=== PATIENT | female | born 1995 | race Caucasian/White ===

== ENCOUNTER → 2020-04-03 15:13 | Outpatient (CLI) | payer BC, SELFPAY ==
--- NOTE | ~2020-04-03 | XR_ITS ---
EXAMINATION: XR cervical spine 4-5V DATE: 04/03/2020 15:51 INDICATION: Neck pain. TECHNIQUE: 4 views of cervical spine were obtained. COMPARISON: None. FINDINGS: There is kyphosis of cervical spine. There is 6 degrees levocurvature of cervicothoracic sp ine. There is 2 mm anterolisthesis of C7 on T1. Vertebral body heights and intervertebral disc height s are normal. There is moderate to severe facet joint osteoarthritis at C7-T1. The C7 transverse proc esses are elongated. No central canal stenosis or prevertebral soft tissue swelling. IMPRESSION: 1. Mild cervical spondylosis. Reviewed, dictated and finalized at location A. IO ENGINEER
== END ==
PROVIDERS: PCP Nurse Practitioner Family; Visit Provider Nurse Practitioner Family
DX: M47.892 Other spondylosis, cervical region (principal)
CPT/HCPCS: 72050

== ENCOUNTER → 2020-04-12 08:07 | Outpatient (CLI) | payer BC, SELFPAY ==
--- NOTE | ~2020-04-12 | MR_ITS ---
EXAMINATION: MR cervical spine wo con EXAM DATE: 04/12/2020 08:55 INDICATION: M54.2 - Cervicalgia neck pain/locking/swelling, right arm tingling upper body . TECHNIQUE: Multi-sequential, multiplanar MR images of the cervical spine were obtained without contra st. Axial T2, axial T2 MERGE sequence. Sagittal T1, T2, T2 fat saturation images also obtained. Th ere is no prior study for comparison. FINDINGS: The vertebral bodies are aligned in the AP dimension. Vertebral body and disc heights are well-maintained. The spinal cord signal intensity and intrinsic morphology is normal. Cervicomedulla ry junction is normal in appearance. There are no suspicious marrow signal abnormalities. Paraspina l soft tissue is unremarkable. Level by level evaluation: C2-C3: Disc does not extend beyond the endplate margin. Uncovertebral joint arthropathy: None. Facet joint arthropathy: None. Neural foraminal stenosis: No stenosis. Central canal stenosis: No stenosis. C3-C4: Disc does not extend beyond the endplate margin. Uncovertebral joint arthropathy: None. Facet joint arthropathy: None. Neural foraminal stenosis: No stenosis. Central canal stenosis: No stenosis. C4-C5: Disc does not extend beyond the endplate margin. Uncovertebral joint arthropathy: None. Facet joint arthropathy: None. Neural foraminal stenosis: No stenosis. Central canal stenosis: No stenosis. C5-C6: Disc does not extend beyond the endplate margin. Uncovertebral joint arthropathy: None. Facet joint arthropathy: None. Neural foraminal stenosis: No stenosis. Central canal stenosis: No stenosis. C6-C7: Disc does not extend beyond the endplate margin. Uncovertebral joint arthropathy: None. Facet joint arthropathy: None. Neural foraminal stenosis: No stenosis. Central canal stenosis: No stenosis. C7-T1: Disc does not extend beyond the endplate margin. Uncovertebral joint arthropathy: None. Facet joint arthropathy: None. Neural foraminal stenosis: No stenosis. Central canal stenosis: No stenosis. IMPRESSION: Normal MR cervical spine. Reviewed, dictated and finalized at location A. [employer] IMPRESSION: Normal MR cervical spine.
== END ==
PROVIDERS: PCP Nurse Practitioner Family; Visit Provider Nurse Practitioner Family
DX: M54.2 Cervicalgia (principal)
CPT/HCPCS: 72141

== ENCOUNTER 2020-05-13 10:10 | Outpatient (CLI) | payer BC, SELFPAY ==
--- NOTE | 2020-05-16 16:52 | WPDHOLTEREM ---
Holter/Event Monitor Holter/Event Monitor Date of procedure: 05/16/20 Procedure Type: 48 hour Holter monitor Diagnosis: cardiac arrhythmia Indications: cardiac arrhythmia Image/Tracing Quality: good Findin hours and 59 minutes were recorded and analyzed. Underlying normal sinus rhythm with heart rate variability between 49 and 185 beats per minute with an average heart rate of 98 beats per minute. The AV and IV conduction systems were within normal limits. The longest RR interval was 1.4 seconds. No complex arrhythmias seen. There is 1 PVC and low-frequency supraventricular ectopy totaling 164 beats. This did consist of 5 PACs and 159 late beats which generally occur in the over night or power generation engineer hours. No diary was submitted and no patient events noted. Conclusion: 1. Underlying normal sinus rhythm / sinus tachycardia with elevated average heart rate of 98 beats per minute. 2. No complex arrhythmia is noted or significant heart block or pauses. 3. One PVC and low-frequency supraventricular ectopy (all in single beat form as detailed above). 4. No symptom events noted
== END 2020-05-13 10:11 | disposition home or self-care (01) ==
PROVIDERS: PCP Nurse Practitioner Family; Visit Provider Nurse Practitioner Family
DX: I49.8 Other specified cardiac arrhythmias (principal)
CPT/HCPCS: 93225; 93226

== ENCOUNTER 2020-06-17 08:04 | Outpatient (CLI) | payer BC, SELFPAY ==
--- NOTE | 2020-06-17 08:48 | ECHO_ITS ---
Patient Info Name: Marti Donnelly Age: 24 years : 1995 Gender: Female Ht: 65 in Wt: 140 lbs BSA: 1.71 m2 HR: 80 bpm BP: 121 / 76 mmHg Heart Rhythm: Sinus Rhythm Technical Quality: Good Exam Date: 06/17/2020 9:21 AM Exam Location: [facility] Patient Status: Outpatient Admit Date: 06/17/2020 Staff Ordering Physician: Yuliana Fraser Is Consultant: Mike Lloyd RDCS Attending Provider: Yuliana Fraser Referring Physician: Evelio OCAMPO; Exam Type: CA echo doppler color flow Study Info Indications I49.9 - Cardiac arrhythmia, unspecified Complete two-dimensional, color flow and Doppler transthoracic echocardiogram is performed. Strain analysis performed. History/Risk Factors Cardiac arrhythmia. Summary 1. Complete two-dimensional, color flow and Doppler transthoracic echocardiogram is performed. 2. Left ventricular chamber dimension is normal. 3. Left ventricular systolic function is normal, estimated at 55-60%. 4. The left ventricular diastolic function is normal. 5. E/e' 5 is not elevated. 6. Global longitudinal strain is mildly abnormal at -16.8%. 7. No pulmonary hypertension, estimated pulmonary arterial systolic pressure is 26 mmHg. Left Ventricle E/e' 5 is not elevated. Global longitudinal strain is mildly abnormal at -16.8%. Left ventricular chamber dimension is normal. Left ventricular systolic function is normal, estimated at 55-60%. The left ventricular diastolic function is normal. Right Ventricle Right ventricular chamber dimension is normal. Right ventricular systolic function is normal. Left Atria Left atrial chamber dimension is normal. Right Atria Right atrial chamber dimension is normal. Aortic Valve The aortic valve is trileaflet. There is no aortic valve stenosis. There is no aortic valve regurgitation. Pulmonic Valve There is no pulmonic regurgitation. Mitral Valve There is no mitral valve stenosis. There is no mitral valve regurgitation. Tricuspid Valve There is no tricuspid valve regurgitation. No pulmonary hypertension, estimated pulmonary arterial systolic pressure is 26 mmHg. Pericardium/Pleural There is no pericardial effusion. Inferior Vena Cava Normal inferior vena cava with >50% collapse upon inspiration consistent with normal right atrial pressure, 5 mmHg. Aorta The aortic root size at the sinus of Valsalva is normal. Left Ventricular Outflow Tract Name Value Normal LVOT 2D LVOT Diameter 1.7 cm LVOT Doppler LVOT Peak Gradient 8 mmHg LVOT Mean Gradient 4 mmHg LVOT VTI 26 cm LVOT VTI/AV VTI Ratio 0.8 LVOT Stroke Volume 60 ml LVOT CO 5.0 l/min LVOT CI 2.9 l/min/m2 Mitral Valve Name Value Normal
== END 2020-06-17 08:05 | disposition home or self-care (01) ==
PROVIDERS: PCP Nurse Practitioner Family; Visit Provider Nurse Practitioner Family
DX: I49.8 Other specified cardiac arrhythmias (principal)
CPT/HCPCS: 93306

== ENCOUNTER 2021-08-06 14:40 | Outpatient (CLI) | payer BC, SELFPAY ==
[2021-08-06 15:02] LABS: Basophils Percent Auto 0.4 % (0.2-1.2); Eosinophils Percent Auto 0.9 % (0-4.4); Hematocrit 41.8 % (37.0-47.0); Hemoglobin 14.3 g/dL (12.0-15.0); Immature Granulocyte Absolute 0.02 K/mm3 (0.00-0.031); Immature Granulocyte Percent A 0.4 % (0-0.5); Lymphocytes Percent Auto 32.5 % (18.3-44.2); Mean Corpuscular HGB Conc 34.2 g/dl (32-36); Mean Corpuscular Hemoglobin 32.4 pg (26-34); Mean Corpuscular Volume 94.8 fl (80-100); Mean Platelet Volume 9.9 fl (7.4-10.4); Monocytes Absolute Auto 0.4 K/mm3 (0.1-0.6); Monocytes Percent Auto 7.8 % (2.6-8.5); Neutrophils Absolute Auto 2.7 K/mm3 (1.3-6.7); Platelet Count Result 236 k/mm3 (150-375); Red Blood Count 4.41 M/mm3 (4.2-5.4); Red Cell Distribution Width 11.6 % (11.5-14.5); White Blood Count 4.6 K/mm3 (4.5-10.0)
[2021-08-06 15:15] LABS: Alanine Aminotransferase 11 U/L (4-35); Albumin Level 4.7 g/dL (3.5-5.1); Alkaline Phosphatase 78 U/L (38-126); Amylase 82 U/L (30-110); Anion Gap 6 mmol/L (8-16); Aspartate Amino Transferase 24 U/L (14-36); Bilirubin,Total 0.4 mg/dL (0.2-1.3); Blood Urea Nitrogen 4 mg/dL (7-17); CRP < 0.5 mg/dL (<1.0); Calcium 9.2 mg/dL (8.4-10.2); Carbon Dioxide 28 mmol/L (22-30); Chloride 105 mmol/L (98-107); Estimated Glomerular Filt Rate > 60; Glucose 102 mg/dL (65-110); Lipase 85 U/L (23-300); Potassium 4.1 mmol/L (3.4-5.0); Sodium 139 mmol/L (137-145)
[2021-08-06 16:55] LABS: Erythrocyte Sedimentation Rate 12 mm/hr (0-20)
== END 2021-08-06 14:41 | disposition home or self-care (01) ==
LOC: ANHLAB 14:43
PROVIDERS: PCP Family Medicine; Visit Provider Nurse Practitioner Family
DX: R10.9 Unspecified abdominal pain (principal)
CPT/HCPCS: 36415; 80053; 82150; 83690; 84443; 85025; 85652; 86140

== ENCOUNTER 2021-09-15 09:13 | Outpatient (CLI) | payer BC, SELFPAY ==
[2021-09-15 10:10] LABS: Basophils Percent Auto 0.5 % (0.2-1.2); Eosinophils Percent Auto 0.9 % (0-4.4); Hematocrit 40.9 % (37.0-47.0); Hemoglobin 13.6 g/dL (12.0-15.0); Immature Granulocyte Absolute 0.01 K/mm3 (0.00-0.031); Immature Granulocyte Percent A 0.2 % (0-0.5); Lymphocytes Absolute Auto 1.43 K/mm3 (0.9-3.2); Mean Corpuscular HGB Conc 33.3 g/dl (32-36); Mean Corpuscular Hemoglobin 31.4 pg (26-34); Mean Corpuscular Volume 94.5 fl (80-100); Mean Platelet Volume 10.8 fl (7.4-10.4); Monocytes Absolute Auto 0.5 K/mm3 (0.1-0.6); Monocytes Percent Auto 11.1 % (2.6-8.5); Neutrophils Absolute Auto 2.4 K/mm3 (1.3-6.7); Neutrophils Percent Auto 54.3 % (45.5-73.1); Platelet Count Result 244 k/mm3 (150-375); Red Blood Count 4.33 M/mm3 (4.2-5.4); Red Cell Distribution Width 11.6 % (11.5-14.5); White Blood Count 4.3 K/mm3 (4.5-10.0)
[2021-09-15 10:18] LABS: Rheumatoid Factor < 8.6 IU/ML (<12)
[2021-09-15 10:20] LABS: Anion Gap 7 mmol/L (8-16); Blood Urea Nitrogen 5 mg/dL (7-17); Carbon Dioxide 27 mmol/L (22-30); Chloride 105 mmol/L (98-107); Estimated Glomerular Filt Rate > 60; Glucose 84 mg/dL (65-110); Potassium 3.9 mmol/L (3.4-5.0); Sodium 139 mmol/L (137-145)
[2021-09-15 10:59] LABS: Erythrocyte Sedimentation Rate 11 mm/hr (0-20)
[2021-09-15 11:40] LABS: CRP < 0.5 mg/dL (<1.0)
== END 2021-09-15 09:14 | disposition home or self-care (01) ==
LOC: ANHLAB 09:16
PROVIDERS: PCP Family Medicine; Visit Provider Nurse Practitioner Family
DX: R39.9 Unspecified symptoms and signs involving the genitourinary system (principal); R52 Pain, unspecified
CPT/HCPCS: 36415; 80048; 85025; 85652; 86038; 86039; 86140; 86430

== ENCOUNTER 2021-11-12 10:53 | Outpatient (CLI) | payer BC, SELFPAY ==
--- NOTE | ~2021-11-12 | XR_ITS ---
EXAMINATION: HAND-SHARMILA ARTHRITIS 3+VIEWS DATE: 11/12/2021 11:17 INDICATION: Unspecified osteoarthritis TECHNIQUE: Posteroanterior, lateral, and oblique views of the left and of the right hands as well as a ballcatchers view of both hands were obtained. COMPARISON: None. FINDINGS: Alignment is normal at both hands. No fracture. Joint spaces are preserved in both hands with no eros ions or osteophytosis. Soft tissues are unremarkable. IMPRESSION: 1. Negative bilateral hand radiographs with normal joint spaces. Reviewed, dictated and finalized at location A.
[2021-11-12 11:51] LABS: Complement C3 130 mg/dL (88-165)
[2021-11-15 20:38] LABS: Anti Cardio Antibody IgM <2.0 MPL-U/mL (<20.0); Anti Cardiolipin Antibody IgA <2.0 APL-U/mL (<20.0); Anti Cardiolipin Antibody IgG <2.0 GPL-U/mL (<20.0)
[2021-11-16 19:31] LABS: SM Antibody <1.0; SM/RNP Antibody <1.0; SS-A <1.0; SS-B <1.0
[2021-11-17 22:10] LABS: Anti Cyclic Citrullinated Pept <16 Units (<20)
[2021-11-18 03:03] LABS: Lupus dRVVT 1:1 Mix Interpreta Not Indicated; Lupus dRVVT Screen 41 sec (<=45); PTT-LA Screen 36 sec (<=40)
== END 2021-11-12 10:54 | disposition home or self-care (01) ==
LOC: ANHIMG 10:55
PROVIDERS: PCP Family Medicine; Visit Provider Internal Medicine
DX: M19.90 Unspecified osteoarthritis, unspecified site (principal); R76.8 Other specified abnormal immunological findings in serum
CPT/HCPCS: 36415; 73130; 85613; 85730; 86146; 86147; 86160; 86200; 86225; 86235

== ENCOUNTER 2022-01-27 13:46 | Outpatient (CLI) | payer BC, SELFPAY ==
--- NOTE | ~2022-01-27 | MR_ITS ---
EXAMINATION: MR cervical spine wo con DATE: 01/27/2022 14:37 INDICATION: Neck pain. TECHNIQUE: Magnetic resonance imaging (MRI) of the cervical spine was performed without intravenous c ontrast. Sequences included sagittal T2-weighted FSE, sagittal T2-weighted FS FSE, sagittal T1-weight ed FSE, axial MERGE, and axial T2-weighted FSE. COMPARISON: Cervical spine MRI 04/12/2020 FINDINGS: There is kyphosis of cervical spine. There is 4 degrees levocurvature of cervicothoracic sp ine. Vertebral body heights and intervertebral disc heights are normal. The spinal cord signal intens ity is normal. The following disc levels are specifically discussed: C2-C3 through C7-T1: The disc does not extend beyond the endplate margin. There is no uncovertebral j oint osteoarthritis. There is no facet joint osteoarthritis. There is no neural foraminal stenosis. T here is no central canal stenosis. IMPRESSION: 1. Kyphosis of cervical spine. Reviewed, dictated and finalized at location A.
== END 2022-01-27 13:47 | disposition home or self-care (01) ==
LOC: ANHIMG 13:51
PROVIDERS: PCP Family Medicine
DX: M54.2 Cervicalgia (principal)
CPT/HCPCS: 72141

== ENCOUNTER 2022-03-25 15:06 | Emergency (ER) | payer BC, SELFPAY ==
--- NOTE | ~2022-03-25 | CT_ITS ---
EXAMINATION: CT brain wo con DATE: 03/25/2022 19:14 INDICATION: Right-sided headaches, dizziness for 3 weeks TECHNIQUE: Computed tomography (CT) of the head was performed without intravenous contrast. The mA wa s adjusted according to patient size. Iterative reconstruction technique was employed. Exam dose: 60 5.33 mGy-cm total exam DLP. COMPARISON: None FINDINGS: No intracranial mass lesion or hemorrhage or cerebrovascular accident. No midline shift or mass effect. Normal [place]-white matter differentiation. Normal ventricular size. No subdural or epidur al hematoma. The mastoid air cells and included paranasal sinuses are normally developed and aerated. No fracture or bone destruction of the cranial vault. IMPRESSION: Negative examination Reviewed, dictated and finalized at Location A. Reviewed, dictated and finalized at location A. IMPRESSION: Negative examination
[2022-03-25 15:19] VITALS: BP 121/78; PULSE 102; RESP 18; TEMP 36.7; O2SAT 100
[2022-03-25 19:27] LABS: Add Urine Microscopic? YES; Appearance Urine Cloudy (Clear); Bacteria Urine Trace /hpf; Bilirubin Urine Negative (Negative); Blood Urine Negative (Negative); Color Urine Yellow (Yellow); Glucose Urine UA Negative (Negative); Ketones Urine Negative (Negative); Leukocyte Esterase Ur Trace LEU/UL (Negative); Mucus Urine Rare /lpf; Nitrate Urine Negative (Negative); Protein Urine Negative (Negative); RBC Urine 0-2 /hpf (0-2); Specific Grav Ur 1.006 (1.001-1.035); Squamous Epithelial Cell Urine Few /hpf (Few); Urobilinogen Urine Negative mg/dL (<2.0)
--- NOTE | 2022-03-25 19:31 | ED.GENADULT ---
HPI - General Adult General Chief complaint: Dizziness Stated complaint: dizzy, weak Time Seen by Provider: 03/25/22 18:37 Source: RN notes reviewed History of Present Illness HPI narrative: Patient presents emergency department from home for headaches. Patient states for the past 3 weeks she has been having intermittent head pain over the right side of her head she states that the pain described as sharp and stabbing feels like needles are being stuck into her scalp she states that nothing seems to make the pain better or worse the pain goes into her right ear and she states she has been having aching in her right ear she denies any fevers or chills she does note that has been having some chronic throat pain and that she has been evaluated with 2 scopes of her throat by ENT with negative work-ups before in the past she denies any vision changes numbness or tingling to the extremities states she does have some intermittent nausea with the pain Related Data Home Medications Medication Instructions Recorded Confirmed norethindrone 1 mg-ethinyl 1 tablet PO DAILY 07/02/20 02/24/22 estradiol 10 mcg (24)-iron 10 mcg(2) tablet (Lo Loestrin Fe) cyclobenzaprine 10 mg tablet 10 mg PO ONCE 01/01/22 02/24/22 meloxicam 7.5 mg tablet 7.5 mg PO DAILY 02/08/22 02/24/22 Allergies Allergy/AdvReac Type Severity Reaction Status Date / Time Sulfa (Sulfonamide Allergy Mild RASH Verified 03/10/22 09:57 Antibiotics) fluoxetine [From Prozac] AdvReac Intermediate Unknown Verified 03/10/22 09:57 Review of Systems Review of Systems: Gen.: Denies fevers or chills Eyes: Denies eye pain or visual change ENT: Reports right ear pain and sore throat Respiratory: Denies shortness of breath or cough CV: Denies chest pain or palpitations GI: Denies abdominal pain vomiting or diarrhea. Reports intermittent nausea denies burning, urgency, frequency or hematuria Musculoskeletal: Denies back pain or muscle pain Neuro: See HPI Skin: Denies rash Except as documented, all other systems reviewed and negative [facility] Past Medical History Medical History MARION positive BMI 22.0-22.9, adult BMI 23.0-23.9, adult BMI 24.0-24.9, adult BMI 25.0-25.9,adult Depression Lordosis of cervicothoracic region Neck pain Tobacco abuse Surgical History Surgical History [place] teeth extracted Family History Family History Father Tongue cancer COVID-19 Mother Cardiac abnormality Grandparent COPD (chronic obstructive pulmonary disease) Sibling COVID-19 Social History Social History Smoking packs per day: 0.25 Smoking cigarettes per day: 5.0 Years smoked: 9 Smoking pack-years: 2.25 Smoking status: Current every day smoker Tobacco type: cigarettes Second hand tobacco smoke exposure: Yes Alcohol intake: current Substance use: current Substance use type: marijuana Additional occupation/education comments: [employer] Gender identity (if verbalized by the patient): Female Exam Narrative: APPEARANCE: No acute distress, nontoxic, resting in bed EYES: EOMI HEENT: Normocephalic, atraumatic, TMs clear bilaterally nares patent oral mucosa moist erythema exudate posterior pharynx RESPIRATORY: No respiratory distress Clear to auscultation bilaterally with no rhonchi wheezing or rales. CARDIOVASCULAR: Regular rate and rhythm without murmurs rubs or gallops. ABDOMINAL: Soft, nontender, nondistended, no rebound or guarding MUSCULOSKELETAl: Moves all extremities. No clubbing, cyanosis or edema. NEURO: Awake and alert x 4. Following commands, speech normal, no focal deficits SKIN:: Warm, dry. No rashes lesions or abrasions PSYCHIATRIC: Normal affect/mood, Course Course Emergency Course: My initi
[2022-03-25 20:03] VITALS: BP 110/81; PULSE 86; RESP 18; O2SAT 100
[2022-03-25 20:30] LABS: Basophils Percent Auto 0.4 % (0.2-1.2); Eosinophils Percent Auto 0.6 % (0-4.4); Hemoglobin 13.5 g/dL (12.0-15.0); Immature Granulocyte Absolute 0.01 K/mm3 (0.00-0.031); Immature Granulocyte Percent A 0.2 % (0-0.5); Lymphocytes Absolute Auto 1.57 K/mm3 (0.9-3.2); Lymphocytes Percent Auto 31.3 % (18.3-44.2); Mean Corpuscular HGB Conc 34.6 g/dl (32-36); Mean Corpuscular Hemoglobin 31.9 pg (26-34); Mean Corpuscular Volume 92.2 fl (80-100); Monocytes Absolute Auto 0.5 K/mm3 (0.1-0.6); Monocytes Percent Auto 9.4 % (2.6-8.5); Neutrophils Absolute Auto 2.9 K/mm3 (1.3-6.7); Neutrophils Percent Auto 58.1 % (45.5-73.1); Platelet Count Result 261 k/mm3 (150-375); Red Blood Count 4.23 M/mm3 (4.2-5.4); Red Cell Distribution Width 11.9 % (11.5-14.5)
[2022-03-25] MEDS: NITROFURANTOIN MONOHYD MACROCR 100 MG CAP PO (21:14)
[2022-03-25 21:20] VITALS: BP 126/81; PULSE 71; RESP 14; O2SAT 99
[2022-03-25 21:22] LABS: Alanine Aminotransferase 12 U/L (6-35); Albumin Level 4.3 g/dL (3.5-5.1); Alkaline Phosphatase 68 U/L (38-126); Anion Gap 14 mmol/L (8-16); Aspartate Amino Transferase 20 U/L (14-36); Bilirubin,Total 0.5 mg/dL (0.2-1.3); Blood Urea Nitrogen 5 mg/dL (7-17); Carbon Dioxide 27 mmol/L (22-30); Chloride 100 mmol/L (98-107); Estimated CRCL calculation 88 ml/min; Estimated Glomerular Filt Rate > 60; Glucose 124 mg/dL (65-110); Potassium 3.5 mmol/L (3.4-5.0); Sodium 141 mmol/L (137-145)
== END 2022-03-25 21:22 | disposition home or self-care (01) ==
PROVIDERS: Emergency Provider Emergency Medicine; PCP Family Medicine
DX: R51.9 Headache, unspecified (principal); N39.0 Urinary tract infection, site not specified; F17.210 Nicotine dependence, cigarettes, uncomplicated
CPT/HCPCS: 36415; 70450; 80053; 81001; 81025; 85025; 99284; A9270

== ENCOUNTER 2022-03-28 10:49 | Outpatient (CLI) | payer BC, SELFPAY ==
--- NOTE | ~2022-03-28 | MR_ITS ---
EXAMINATION: MR brain/brain stem wo/w con DATE: 03/28/2022 11:34 INDICATION: persistent daily OBREGON. No relief with migraine meds TECHNIQUE: Magnetic resonance imaging (MRI) of the brain and brainstem was performed without and with 13 mL MultiHance intravenous contrast. Sequences included sagittal and axial T1-weighted SE, axial d iffusion-weighted FS EPI ASSET, axial T2*-weighted GRE, axial T2-weighted FLAIR Propeller, and axial T2-weighted Propeller. Postcontrast axial and coronal T1-weighted SE was obtained. Apparent diffusion coefficient (ADC) maps were created. COMPARISON: CT brain 03/25/2022. FINDINGS: No abnormal restricted diffusion to suggest acute ischemic infarct. No MRI evidence of hemorrhage or extra-axial collection. No suspicious foci of susceptibility to suggest prior intraparenchymal hemorr nile. No white matter change. No evidence of advanced or lobar predominant parenchymal volume loss. B asilar cisterns are patent. Vascular flow voids are preserved. No significant orbital, mastoid air ce ll, or paranasal finding. No abnormal enhancement. IMPRESSION: Normal MR brain findings. Reviewed, dictated and finalized at location K. IMPRESSION: Normal MR brain findings.
== END 2022-03-28 10:50 | disposition home or self-care (01) ==
LOC: ANHIMG 10:52
PROVIDERS: PCP Family Medicine; Visit Provider Physician Assistant Medical
DX: R51.9 Headache, unspecified (principal)
CPT/HCPCS: 70553; A9577

== ENCOUNTER 2022-03-31 12:18 | Emergency (ER) | payer BC, SELFPAY ==
--- NOTE | ~2022-03-31 | US_ITS ---
EXAMINATION: US venous doppler LE RT DATE: 03/31/2022 13:54 INDICATION: Right lower limb pain and swelling. TECHNIQUE: Grayscale ultrasound images without and with compression and Doppler ultrasound images of the right lower extremity veins were obtained. COMPARISON: None. FINDINGS: The visualized portions of right common femoral vein, profunda (deep) femoral vein, femoral vein, pop liteal vein, peroneal veins, posterior tibial veins, and greater saphenous vein outflow are patent. IMPRESSION: 1. No deep venous thrombosis. Reviewed, dictated and finalized at location A.
--- NOTE | 2022-03-31 12:19 | ECG_ITS ---
Measurements Intervals [place] Rate: 116 P: 68 MT: 113 QRS: 64 QRSD: 79 T: 50 QT: 293 QTc: 407 Interpretive Statements SINUS TACHYCARDIA WITH SHORT MT INTERVAL ABNORMAL ECG NO PREVIOUS ECG AVAILABLE FOR COMPARISON Electronically Signed On 03-31-2022 12:55:26 CDT by Tee Cortez D.O.
[2022-03-31 12:32] VITALS: BP 124/85; PULSE 122; RESP 14; TEMP 36.5; O2SAT 98
[2022-03-31 12:35] LABS: Basophils Percent Auto 0.6 % (0.2-1.2); Eosinophils Percent Auto 0.6 % (0-4.4); Hematocrit 43.4 % (37.0-47.0); Hemoglobin 14.9 g/dL (12.0-15.0); Lymphocytes Percent Auto 35.9 % (18.3-44.2); Mean Corpuscular HGB Conc 34.3 g/dl (32-36); Mean Corpuscular Hemoglobin 32.1 pg (26-34); Mean Corpuscular Volume 93.5 fl (80-100); Monocytes Absolute Auto 0.3 K/mm3 (0.1-0.6); Monocytes Percent Auto 8.7 % (2.6-8.5); Neutrophils Absolute Auto 1.8 K/mm3 (1.3-6.7); Neutrophils Percent Auto 54.2 % (45.5-73.1); Platelet Count Result 274 k/mm3 (150-375); Red Blood Count 4.64 M/mm3 (4.2-5.4); Red Cell Distribution Width 11.9 % (11.5-14.5); White Blood Count 3.3 K/mm3 (4.5-10.0)
[2022-03-31 12:45] LABS: Alanine Aminotransferase 12 U/L (6-35); Albumin Level 4.7 g/dL (3.5-5.1); Alkaline Phosphatase 80 U/L (38-126); Anion Gap 14 mmol/L (8-16); Aspartate Amino Transferase 19 U/L (14-36); Bilirubin,Total 0.6 mg/dL (0.2-1.3); Blood Urea Nitrogen 4 mg/dL (7-17); Calcium 9.1 mg/dL (8.4-10.2); Carbon Dioxide 25 mmol/L (22-30); Chloride 104 mmol/L (98-107); Estimated CRCL calculation 100 ml/min; Estimated Glomerular Filt Rate > 60; Glucose 85 mg/dL (65-110); Lipase 66 U/L (23-300); Sodium 143 mmol/L (137-145)
[2022-03-31 12:47] LABS: Prothrombin Time 12.5 Seconds (11.1-14.7)
[2022-03-31 12:48] LABS: Partial Thromboplastin Time 26.6 SECONDS (22.3-36.8)
[2022-03-31 12:56] LABS: Troponin I < 0.012 ng/mL (0.000-0.034)
[2022-03-31 13:05] VITALS: BP 119/75; PULSE 100; RESP 21; O2SAT 100
[2022-03-31 13:06] VITALS: PULSE 97
--- NOTE | 2022-03-31 13:07 | ED.ARRPALP ---
HPI - Arrhythmia/Palpitations General Chief Complaint: Arrhythmia/Palpitations <PAIGE Mccormack Last Filed: 03/31/22 17:59> Stated Complaint: RAPID HEART RATE <PAIGE Mccormack Last Filed: 03/31/22 17:59> Time Seen by Provider: 03/31/22 12:55 <PAIGE Mccormack Last Filed: 03/31/22 17:59> History of Present Illness HPI narrative: Patient is a 26-year-old female with a history of an unspecified arrhythmia here for evaluation of heart palpitations today. Patient states that while she was eating breakfast today, her heart rate jumped up to a rate of 169, and her Apple Watch alerted her of this rate. No chest pain, shortness of breath, fevers or chills, nausea or vomiting. Patient expresses concern over a blood clot as she developed some right lower calf cramping and pain today. Patient has followed with Dr. Cortez, cardiology, for an unspecified arrhythmia, has worn Holter monitors without evidence of arrhythmia. <PAIGE Mccormack Last Filed: 03/31/22 17:59> Related Data Home Medications: Home Medications Medication Instructions Recorded Confirmed norethindrone 1 mg-ethinyl 1 tablet PO DAILY 07/02/20 02/24/22 estradiol 10 mcg (24)-iron 10 mcg(2) tablet (Lo Loestrin Fe) cyclobenzaprine 10 mg tablet 10 mg PO ONCE 01/01/22 02/24/22 meloxicam 7.5 mg tablet 7.5 mg PO DAILY 02/08/22 02/24/22 <PAIGE Mccormack Last Filed: 03/31/22 17:59> Allergies/Adverse Reactions: Allergies Allergy/AdvReac Type Severity Reaction Status Date / Time Sulfa (Sulfonamide Allergy Mild RASH Verified 03/10/22 09:57 Antibiotics) fluoxetine [From Prozac] AdvReac Intermediate Unknown Verified 03/10/22 09:57 <PAIGE Mccormack Last Filed: 03/31/22 17:59> Review of Systems Review of Systems: Gen: Denies fevers or chills Eyes: Denies eye pain or visual change ENT: Denies congestion Respiratory: Denies shortness of breath or cough CV: Reports palpitations. Denies chest pain GI: Denies abdominal pain nausea, emesis or diarrhea denies burning, urgency, frequency or hematuria Musculoskeletal: Denies back pain or muscle pain Neuro: Denies numbness, tingling, weakness or focal weakness Skin: Denies rash Except as documented, all other systems reviewed and negative <Erendira Hargrove PA-C - Last Filed: 03/31/22 17:59> [facility] Past Medical History Medical History: Medical History MARION positive BMI 22.0-22.9, adult BMI 23.0-23.9, adult BMI 24.0-24.9, adult BMI 25.0-25.9,adult Depression Lordosis of cervicothoracic region Neck pain Tobacco abuse <Erendira Hargrove PA-C - Last Filed: 03/31/22 17:59> Surgical History Surgical History: Surgical History [place] teeth extracted <Erendira Hargrove PA-C - Last Filed: 03/31/22 17:59> Family History Family History: Family History Father Tongue cancer COVID-19 Mother Cardiac abnormality Grandparent COPD (chronic obstructive pulmonary disease) Sibling COVID-19 <Erendira Hargrove PA-C - Last Filed: 03/31/22 17:59> Social History Social History: Social History Smoking packs per day: 0.25 Smoking cigarettes per day: 5.0 Years smoked: 9 Smoking pack-years: 2.25 Smoking status: Current every day smoker Tobacco type: cigarettes Second hand tobacco smoke exposure: Yes Alcohol intake: current Substance use: current Substance use type: marijuana Additional occupation/education comments: [employer] Gender identity (if verbalized by the patient): Female <Erendira Hargrove PA-C - Last Filed: 03/31/22 17:59> Exam Narrative: APPEARANCE: Well appearing, no p
[2022-03-31 13:16] VITALS: BP 112/80; PULSE 102; RESP 23; O2SAT 99
[2022-03-31 13:24] LABS: Magnesium 2.2 mg/dL (1.6-2.3)
[2022-03-31 13:30] VITALS: BP 111/79; PULSE 101; RESP 23; O2SAT 99
[2022-03-31 14:30] LABS: D Dimer 0.31 ug/mL (<0.48)
[2022-03-31 15:54] VITALS: BP 116/78; PULSE 72; RESP 16; TEMP 36.8; O2SAT 100
== END 2022-03-31 15:57 | disposition home or self-care (01) ==
PROVIDERS: Emergency Medicine; Physician Assistant; Emergency Provider Emergency Medicine; PCP Family Medicine
DX: R00.2 Palpitations (principal); M79.661 Pain in right lower leg; F17.210 Nicotine dependence, cigarettes, uncomplicated; R00.0 Tachycardia, unspecified
CPT/HCPCS: 36415; 80053; 83690; 83735; 84484; 85025; 85380; 85610; 85730; 93005; 93971; 99284

== ENCOUNTER 2022-04-06 01:24 | Emergency (ER) | payer BC, SELFPAY ==
--- NOTE | ~2022-04-06 | XR_ITS ---
EXAMINATION: XR chest 2V DATE: 04/06/2022 02:44 INDICATION: Shortness of breath and left chest pain. Tachycardia. TECHNIQUE: PA and lateral views of the chest were obtained. COMPARISON: Chest radiograph dated 08/24/2016 FINDINGS: The lungs are clear with no focal airspace opacities, pulmonary edema, pleural effusion or pneumothor ax. The cardiomediastinal silhouette is normal. Visualized bones and soft tissues are unremarkable. IMPRESSION: 1. No acute cardiopulmonary disease. Reviewed, dictated and finalized at location A. HUNTER
[2022-04-06 01:30] VITALS: BP 129/90; PULSE 90; RESP 20; TEMP 37; O2SAT 98
--- NOTE | 2022-04-06 01:32 | ED.GENADULT ---
HPI - General Adult General Chief complaint: Unspecified Stated complaint: chest pain Source: patient Mode of arrival: ambulatory History of Present Illness HPI narrative: 26 smoker with marijuana use, depression, positive MARION with butterfly rash the cheeks, arthralgias involving large joints was noted to have -- palpitation for which she had Holter/ events monitor done twice without any significant abnormality noted. has intermittent palpitation -- Presents today with left-sided chest pain which has been present for the past 24 hours. No radiation of the pain. The pain is worse on lying down. -- Shortness of breath was recently evaluated at [facility] for headache, abdominal pain, palpitation and cough swelling. Onset (ago): day(s) ( for 1 day) Location: chest Radiation: non-radiation Severity: moderate Quality: stabbing and sharp Pain Consistency: intermittent Relieving factors: none Exacerbating factors: none Associated symptoms: denies other symptoms, headaches and shortness of breath Treatments prior to arrival: none Related Data Home Medications Medication Instructions Recorded Confirmed norethindrone 1 mg-ethinyl 1 tablet PO DAILY 07/02/20 04/06/22 estradiol 10 mcg (24)-iron 10 mcg(2) tablet (Lo Loestrin Fe) cyclobenzaprine 10 mg tablet 10 mg PO ONCE 01/01/22 04/06/22 meloxicam 7.5 mg tablet 7.5 mg PO DAILY 02/08/22 04/06/22 Allergies Allergy/AdvReac Type Severity Reaction Status Date / Time Sulfa (Sulfonamide Allergy Mild RASH Verified 03/10/22 09:57 Antibiotics) fluoxetine [From Prozac] AdvReac Intermediate Unknown Verified 03/10/22 09:57 Review of Systems Review of Systems: All systems reviewed & are unremarkable except as noted in HPI and below Constitutional: Constitutional: Reports as per HPI and Reports no additional constitutional complaints Eyes: Eyes: Reports as per HPI and Reports no additional eye complaints ENT: Reports system reviewed and no additional complaints, except as documented and Reports as per HPI Cardiovascular: Cardiovascular: Reports as per HPI, Reports no additional cardiovascular complaints, Reports chest pain at rest and Reports rapid heart rate Respiratory: Respiratory: Reports as per HPI and Reports no additional respiratory complaints Gastrointestinal: Gastrointestinal: Reports as per HPI and Reports no additional gastrointestinal complaints Genitourinary: Genitourinary: Reports no additional female genitourinary complaints and Reports as per HPI Musculoskeletal: Musculoskeletal: Reports no additional musculoskeletal complaints and Reports as per HPI Integumentary/Breasts: Skin/Breast: Reports system reviewed and no additional complaints, except as docu and Reports as per HPI Neurologic: Reports system reviewed and no additional complaints, except as documented and Reports as per HPI Psychiatric: Psychiatric: Reports no additional psychiatric complaints, Reports as per HPI and Reports anxiety Endocrine: Endocrine: Reports no additional endocrine complaints and Reports as per HPI Hematologic/Lymphatic: Hematologic/Lymphatic: Reports no additional hematologic/lymphatic complaints and Reports as per HPI Allergic/Immunologic: Allergic/Immunologic: Reports no additional allergic/immunologic complaints and Reports as per HPI PMFSH Past Medical History Medical History MARION positive BMI 22.0-22.9, adult BMI 23.0-23.9, adult BMI 24.0-24.9, adult BMI 25.0-25.9,adult Depression Lordosis of cervicothoracic region Neck pain Tobacco abuse Surgical History Surgical History [place] teeth extracted Family History Family History Father Tongue cancer COVID-19 Mother Cardiac abnormality Grandparent COPD (chronic obstructive pulmonary disease) Sibling COVID-19 Social History Soci
[2022-04-06 01:34] VITALS: PULSE 90
--- NOTE | 2022-04-06 01:38 | ECG_ITS ---
Measurements Intervals [place] Rate: 76 P: -3 MA: 109 QRS: 52 QRSD: 83 T: 50 QT: 363 QTc: 408 Interpretive Statements SINUS RHYTHM WITH SHORT MA INTERVAL BASELINE ARTIFACT- I, II BORDERLINE ECG COMPARED TO ECG 03/31/2022 12:23:23 SINUS RHYTHM NOW PRESENT Electronically Signed On 04-06-2022 6:54:36 [employer] by Tee Cortez D.O.
[2022-04-06 01:54] LABS: Basophils Absolute Auto 0.03 K/mm3 (0.00-0.10); Basophils Percent Auto 0.5 % (0.0-1.0); Eosinophils Absolute Auto 0.04 K/mm3 (0.02-0.50); Eosinophils Percent Auto 0.7 % (1.0-6.0); Hematocrit 35.2 % (35.0-49.0); Hemoglobin 12.6 g/dL (12.0-15.0); Immature Granulocyte Absolute 0.01 K/mm3 (0.00-0.00); Immature Granulocyte Percent A 0.2 % (0.0-0.0); Lymphocytes Absolute Auto 2.01 K/mm3 (1.10-4.50); Lymphocytes Percent Auto 34.4 % (18.0-42.0); Mean Corpuscular HGB Conc 35.8 g/dL (32.0-36.0); Mean Corpuscular Hemoglobin 32.7 pg (27.0-31.0); Mean Corpuscular Volume 91.4 fL (78.0-102.0); Mean Platelet Volume 9.8 fl (9.2-11.8); Monocytes Absolute Auto 0.54 K/mm3 (0.10-0.90); Monocytes Percent Auto 9.2 % (2.0-11.0); Neutrophils Absolute Auto 3.2 K/mm3 (1.7-7.2); Platelet Count Result 247 K/mm3 (150-420); Red Blood Count 3.85 M/mm3 (4.20-5.40); Red Cell Distribution Width 11.6 % (11.6-14.4); White Blood Count 5.8 K/mm3 (4.8-10.8)
[2022-04-06 02:14] LABS: Lactic Acid Reflex 0.6 mmol/L (0.4-2.0)
[2022-04-06 02:16] LABS: D Dimer 0.19 mg/L (0.19-0.50); Prothrombin Time 10.7 Seconds (9.50-12.10)
[2022-04-06 02:18] LABS: SPREG INTERNAL CONTROL Positive; Serum Qual hCG Negative
[2022-04-06 02:28] LABS: Alanine Aminotransferase 9 U/L (14-59); Albumin Level 3.5 g/dL (3.4-5.0); Alkaline Phosphatase 71 U/L (46-116); Anion Gap 7 mmol/L (8-16); Aspartate Amino Transferase 10 U/L (15-37); Bilirubin,Total 0.4 mg/dL (0.00-1.00); Blood Urea Nitrogen 5 mg/dL (7-18); Calcium 9.2 mg/dL (8.5-10.1); Carbon Dioxide 26 mmol/L (21-32); Chloride 107 mmol/L (98-108); Estimated CRCL calculation 93 ml/min; Estimated Glomerular Filt Rate > 60; Glucose 94 mg/dL (70-99); NT Pro B Type Natriuretic Pept 34 pg/mL (0-125); Osmolality Calculated 287 mOsm/kg (285-295); Potassium 3.5 mmol/L (3.5-5.1); Sodium 140 mmol/L (136-145); Thyroid Stimulating Hormone 3.96 uIU/mL (0.36-3.74); Total Protein 6.6 g/dL (6.4-8.2); Troponin I < 4.0 ng/L (0.00-60.4)
[2022-04-06 02:49] VITALS: BP 128/80; PULSE 88; RESP 18; O2SAT 98
[2022-04-06 02:56] VITALS: BP 129/89; PULSE 80; RESP 18; TEMP 37.2; O2SAT 99
== END 2022-04-06 03:07 | disposition home or self-care (01) ==
PROVIDERS: Emergency Provider Internal Medicine Critical Care Medicine; PCP Family Medicine
DX: R07.9 Chest pain, unspecified (principal); F41.9 Anxiety disorder, unspecified; R06.02 Shortness of breath; F17.200 Nicotine dependence, unspecified, uncomplicated
CPT/HCPCS: 36415; 71046; 80053; 83605; 83735; 83880; 84443; 84484; 84703; 85025; 85380; 85610; 93005; 99284

== ENCOUNTER 2022-04-06 15:17 | Outpatient (CLI) | payer BC, SELFPAY ==
[2022-04-06 16:07] LABS: Basophils Absolute Auto 0.1 K/mm3 (0.0-0.1); Eosinophils Percent Auto 0.8 % (0-4.4); Hematocrit 39.9 % (37.0-47.0); Hemoglobin 13.8 g/dL (12.0-15.0); Immature Granulocyte Absolute 0.02 K/mm3 (0.00-0.031); Immature Granulocyte Percent A 0.4 % (0-0.5); Lymphocytes Absolute Auto 1.64 K/mm3 (0.9-3.2); Lymphocytes Percent Auto 33.5 % (18.3-44.2); Mean Corpuscular HGB Conc 34.6 g/dl (32-36); Mean Corpuscular Hemoglobin 32.5 pg (26-34); Mean Corpuscular Volume 93.9 fl (80-100); Mean Platelet Volume 9.7 fl (7.4-10.4); Monocytes Absolute Auto 0.6 K/mm3 (0.1-0.6); Monocytes Percent Auto 12.3 % (2.6-8.5); Neutrophils Absolute Auto 2.5 K/mm3 (1.3-6.7); Platelet Count Result 269 k/mm3 (150-375); Red Blood Count 4.25 M/mm3 (4.2-5.4); Red Cell Distribution Width 11.8 % (11.5-14.5); White Blood Count 4.9 K/mm3 (4.5-10.0)
[2022-04-06 16:25] LABS: Alanine Aminotransferase 13 U/L (6-35); Albumin Level 4.5 g/dL (3.5-5.1); Alkaline Phosphatase 72 U/L (38-126); Anion Gap 11 mmol/L (8-16); Aspartate Amino Transferase 19 U/L (14-36); Bilirubin,Total 0.7 mg/dL (0.2-1.3); Blood Urea Nitrogen 5 mg/dL (7-17); CRP < 0.5 mg/dL (<1.0); Calcium 9.1 mg/dL (8.4-10.2); Carbon Dioxide 26 mmol/L (22-30); Chloride 104 mmol/L (98-107); Estimated Glomerular Filt Rate > 60; Glucose 95 mg/dL (65-110); Potassium 4.4 mmol/L (3.4-5.0); Sodium 141 mmol/L (137-145)
[2022-04-06 16:31] LABS: Complement C3 118 mg/dL (88-165); Rheumatoid Factor < 8.6 IU/ML (<12)
[2022-04-06 16:53] LABS: Erythrocyte Sedimentation Rate 15 mm/hr (0-20)
[2022-04-06 16:56] LABS: Vitamin D 25 Hydroxy 50.8 ng/mL
[2022-04-06 17:08] LABS: Hepatitis B Surface Antigen Negative (Negative)
[2022-04-06 17:14] LABS: HAV RESULT Negative (Negative); Hepatitis B Core IgM Result Negative (Negative)
[2022-04-06 17:26] LABS: Hepatitis C Virus Antibody Negative (Negative)
== END 2022-04-06 15:18 | disposition home or self-care (01) ==
PROVIDERS: PCP Family Medicine
DX: M25.50 Pain in unspecified joint (principal); R76.8 Other specified abnormal immunological findings in serum; E55.9 Vitamin D deficiency, unspecified
CPT/HCPCS: 36415; 80053; 80074; 82306; 85025; 85652; 86038; 86039; 86140; 86160; 86430

== ENCOUNTER 2022-04-10 08:52 | Outpatient (CLI) | payer BC, SELFPAY ==
--- NOTE | ~2022-04-10 | XR_ITS ---
XR hip BI 2V w AP pelvis DATE: 04/10/2022 09:33 INDICATION: Polyarthralgia. Positive MARION. Vitamin D deficiency. TECHNIQUE: AP pelvis. AP and lateral views of each hip. COMPARISON: None FINDINGS: The pubic symphysis and sacroiliac joints are intact. Hip joint spaces are symmetric and we ll preserved. No pelvic fracture or bone destruction. No fracture or dislocation, avascular necrosis or bone destruction of either hip. IMPRESSION: Negative Reviewed, dictated and finalized at location A. TESTER IMPRESSION: Negative
--- NOTE | ~2022-04-10 | XR_ITS ---
XR_CERV2-3V_CR DATE: 04/10/2022 09:32 INDICATION: Polyarthralgia. Positive MARION. Vitamin D deficiency. TECHNIQUE: AP, open-mouth, lateral views COMPARISON: 04/03/2020 cervical spine FINDINGS: There is reversal of cervical curvature. There is minimal anterolisthesis at C4-5 and C7-T1, stable since 04/03/2020. C1 and C2 are normally aligned and the odontoid process is intact. No fracture or dislocation or lock ed facet or prevertebral soft tissue swelling of the cervical spine. Cervical interspaces appear well preserved. Elongated bilateral C7 transverse processes. IMPRESSION: Reversal of cervical curvature Minimal anterolisthesis at C4-5 and C7-T1, stable since 04/03/2020 Reviewed, dictated and finalized at [facility]. Reviewed, dictated and finalized at location [facility]. FLOOR LAYER
--- NOTE | ~2022-04-10 | XR_ITS ---
XR sacroiliac joints min 3V DATE: 04/10/2022 09:32 INDICATION: Polyarthralgia. Positive MARION. Vitamin D deficiency. TECHNIQUE: AP and bilateral oblique views COMPARISON: None FINDINGS: There is a transitional lumbosacral vertebra. The sacroiliac joints are intact, without evidence of fracture, dislocation, erosive change or ankylo sis. Normal alignment at the pubic symphysis. Hip joint spaces are symmetric and well preserved. IMPRESSION: Negative sacroiliac joints Transitional lumbosacral vertebra Reviewed, dictated and finalized at [facility]. Reviewed, dictated and finalized at location [facility]. ROLLING MACHINE OPERATOR
== END 2022-04-10 08:53 | disposition home or self-care (01) ==
PROVIDERS: PCP Family Medicine
DX: M25.50 Pain in unspecified joint (principal); R76.8 Other specified abnormal immunological findings in serum; E55.9 Vitamin D deficiency, unspecified
CPT/HCPCS: 72040; 72202; 73521

== ENCOUNTER 2022-04-13 14:27 | Outpatient (RCR) | payer BC, SELFPAY ==
--- NOTE | 2022-04-13 16:18 | STOPEVDC ---
Assessment and note entered by Lori Farmer, NAIL MAKING MACHINE TENDER Thank you for referring Marti Donnelly to [facility].? An evaluation has been completed. No further treatment is needed. Evaluation Information Assessment Status Evaluation Diagnosis Spasms of the throat Onset 01/18 Subjective Information The patient reports difficulty swallowing, beginning with throat pain at the end of December, and developed into more swallowing difficulty. She reports she has had esophagus spasms, feeling like she is choking, still having difficulty eating. She stated that she cannot eat anything hard. 2020 neck injury, stiff neck. She reports a neck injury, When she was 15 she was sleeping on the floor, neck locked up, rushed to chiropractor. She had to go the chiropractor and for a neck adjustment but had significant pain; physical therapy did help but currently still having pain. Now overall neck issues. Reported Pain Level Pain Score 0: Self Report Assessment ST Clinical Summary BEDSIDE SWALLOW EVALUATION This patient was seen for a Bedside Swallow Evaluation along with evaluation to assess her complaints of spasms of the throat, pain in the throat, and difficulty swallowing. Today the patient consumed thin liquid, fruit pieces, pudding, and carmen cracker with no obvious signs of aspiration or distress. She expressed concerns with spasms in the throat and difficulty swallowing solid foods. Patient also reported TMJ issues and pain and pain inside the ears when swallowing at times. In general endoscopy and ear assessment return negative for definitive issues other than possible evidence of LPR ( laryngopharyngeal reflux). Vocal quality was clear and remained clear throughout this evaluation. Based on patient's complaints, she was instructed in the use of GERD precautions to follow; patient was instructed to avoid citrus fruit items and carbonated beverages and she reported both of these items do tend to contribute to feelings of reflux. Patient was instructed in the use of laryngeal relaxation techniques including laryngeal massage and progressive relaxation to improve her ability to recognize tension in the body and voice/swallowing musculature and
== END 2022-04-14 08:51 | disposition home or self-care (01) ==
LOC: ANHST 14:27
PROVIDERS: PCP Family Medicine; Visit Provider Otolaryngology
DX: J39.2 Other diseases of pharynx (principal)
CPT/HCPCS: 92610

== ENCOUNTER 2022-04-27 02:48 | Emergency (ER) | payer BC, SELFPAY ==
[2022-04-27 02:55] VITALS: BP 116/81; PULSE 85; RESP 16; TEMP 36.9; O2SAT 99
--- NOTE | 2022-04-27 03:37 | ED.ALLEREA ---
HPI - Allergic Reaction General Chief complaint: Allergic Reaction Stated complaint: Alergyc reaction Time Seen by Provider: 04/27/22 02:52 Source: patient and RN notes reviewed Mode of arrival: ambulatory Limitations: no limitations History of Present Illness complaint: allergic reaction and hives Onset (ago): day(s) (2) Exposure: medication Symptoms: rash and itching Severity: mild Treatment prior to arrival: none Previous Allergic Reaction History: none Related Data Home Medications Medication Instructions Recorded Confirmed norethindrone 1 mg-ethinyl 1 tablet PO DAILY 07/02/20 04/27/22 estradiol 10 mcg (24)-iron 10 mcg(2) tablet (Lo Loestrin Fe) Allergies Allergy/AdvReac Type Severity Reaction Status Date / Time Sulfa (Sulfonamide Allergy Mild RASH Verified 04/27/22 03:10 Antibiotics) fluoxetine [From Prozac] AdvReac Intermediate Unknown Verified 04/27/22 03:10 Review of Systems Review of Systems: All systems reviewed & are unremarkable except as noted in HPI and below Constitutional: Constitutional: Reports no additional constitutional complaints Eyes: Eyes: Reports no additional eye complaints ENT: Reports system reviewed and no additional complaints, except as documented Cardiovascular: Cardiovascular: Reports no additional cardiovascular complaints Respiratory: Respiratory: Reports no additional respiratory complaints Gastrointestinal: Gastrointestinal: Reports no additional gastrointestinal complaints Genitourinary: Genitourinary: Reports no additional female genitourinary complaints Musculoskeletal: Musculoskeletal: Reports no additional musculoskeletal complaints Integumentary/Breasts: Skin/Breast: Reports system reviewed and no additional complaints, except as docu and Reports rash Neurologic: Reports system reviewed and no additional complaints, except as documented Psychiatric: Psychiatric: Reports no additional psychiatric complaints Endocrine: Endocrine: Reports no additional endocrine complaints Hematologic/Lymphatic: Hematologic/Lymphatic: Reports no additional hematologic/lymphatic complaints Allergic/Immunologic: Allergic/Immunologic: Reports no additional allergic/immunologic complaints [facility] Past Medical History Medical History (Updated 04/27/22 @ 03:55 by Ila Ureña MD) Allergic MARION positive BMI 22.0-22.9, adult BMI 23.0-23.9, adult BMI 24.0-24.9, adult BMI 25.0-25.9,adult Depression Lordosis of cervicothoracic region Neck pain Tobacco abuse Surgical History Surgical History [place] teeth extracted Family History Family History Father Tongue cancer COVID-19 Mother Cardiac abnormality Grandparent COPD (chronic obstructive pulmonary disease) Sibling COVID-19 Social History Social History Smoking packs per day: 0.25 Smoking cigarettes per day: 5.0 Years smoked: 9 Smoking pack-years: 2.25 Smoking status: Current every day smoker Tobacco type: cigarettes Second hand tobacco smoke exposure: Yes Alcohol intake: current Substance use: current Substance use type: marijuana Additional occupation/education comments: [employer] Gender identity (if verbalized by the patient): Female Exam Const: General: healthy appearing, no acute distress and well nourished Nutritional Appearance: well nourished Orientation/consciousness: patient oriented x3 Limitations: no limitations HENMT: Head: normal to inspection Ears: external ears normal, TM's normal bilaterally and EAC's normal Face/Nose/Sinus: Normal external nose present, Normal nares present, normal facial exam and sinuses nontender Face and sinus: normal facial exam and sinuses nontender Mouth: Yes Normal oral and palatal mucosa present and Yes moist mucous membranes
[2022-04-27] MEDS: diphenhydrAMINE HCl CAP 25 MG CAPSULE 50 MG PO (03:43)
[2022-04-27] MEDS: methylPREDNISolone SOD SUCC 125 MG VIAL IM (03:44)
[2022-04-27 04:01] VITALS: BP 116/73; PULSE 79; RESP 16; O2SAT 100
== END 2022-04-27 04:06 | disposition home or self-care (01) ==
PROVIDERS: Emergency Provider Emergency Medicine; PCP Family Medicine
DX: T78.40XA Allergy, unspecified, initial encounter (principal)
CPT/HCPCS: 96372; 99283; A9270; J2930

== ENCOUNTER 2022-04-28 04:41 | Emergency (ER) | payer BC, SELFPAY ==
[2022-04-28 05:00] VITALS: BP 121/77; PULSE 104; RESP 18; TEMP 37; O2SAT 98
--- NOTE | 2022-04-28 05:00 | ED.ANXIETY ---
HPI - Anxiety General Chief Complaint: Anxiety Stated Complaint: Anxiety Time Seen by Provider: 04/28/22 04:59 Source: patient Limitations: no limitations History of Present Illness HPI narrative: 26-year-old female with a history of marijuana use, anxiety, positive MARION presents to the ER with -- anterior chest pain which is substernal in location. -- Shortness of breath. -- weakness. she is unable to open the cap of her water bottle. She walked in without any difficulty. -- Dry mouth -- disoriented the patient has had this symptoms for months and has had extensive evaluation. She feels the symptoms have worsened. She presented to the ER 24 hours ago for questionable allergic reaction to Holter monitor. MD complaint: anxiety and shortness of breath Onset (ago): month(s) Symptoms: chest pain and dry mouth Severity: mild Quality: constant Place: home History of similar episodes: Yes Provoking factors: none known Relieving factors: nothing Exacerbating factors: nothing Associated symptoms: denies other symptoms Related Data Home Medications Medication Instructions Recorded Confirmed norethindrone 1 mg-ethinyl 1 tablet PO DAILY 07/02/20 04/27/22 estradiol 10 mcg (24)-iron 10 mcg(2) tablet (Lo Loestrin Fe) Allergies Allergy/AdvReac Type Severity Reaction Status Date / Time Sulfa (Sulfonamide Allergy Mild RASH Verified 04/27/22 03:10 Antibiotics) fluoxetine [From Prozac] AdvReac Intermediate Unknown Verified 04/27/22 03:10 Review of Systems Review of Systems: All systems reviewed & are unremarkable except as noted in HPI and below Constitutional: Constitutional: Reports as per HPI and Reports no additional constitutional complaints Eyes: Eyes: Reports as per HPI and Reports no additional eye complaints ENT: Reports system reviewed and no additional complaints, except as documented and Reports as per HPI Cardiovascular: Cardiovascular: Reports as per HPI, Reports no additional cardiovascular complaints and Reports chest pain Respiratory: Respiratory: Reports as per HPI, Reports no additional respiratory complaints and Reports dyspnea Gastrointestinal: Gastrointestinal: Reports as per HPI and Reports no additional gastrointestinal complaints Musculoskeletal: Musculoskeletal: Reports no additional musculoskeletal complaints and Reports as per HPI Integumentary/Breasts: Skin/Breast: Reports system reviewed and no additional complaints, except as docu and Reports as per HPI Neurologic: Reports system reviewed and no additional complaints, except as documented and Reports as per HPI Psychiatric: Psychiatric: Reports no additional psychiatric complaints, Reports as per HPI and Reports anxiety Endocrine: Endocrine: Reports no additional endocrine complaints and Reports as per HPI Hematologic/Lymphatic: Hematologic/Lymphatic: Reports no additional hematologic/lymphatic complaints and Reports as per HPI Allergic/Immunologic: Allergic/Immunologic: Reports no additional allergic/immunologic complaints and Reports as per HPI [facility] Past Medical History Medical History Allergic MARION positive BMI 22.0-22.9, adult BMI 23.0-23.9, adult BMI 24.0-24.9, adult BMI 25.0-25.9,adult Depression Lordosis of cervicothoracic region Neck pain Tobacco abuse Surgical History Surgical History [place] teeth extracted Family History Family History Father Tongue cancer COVID-19 Mother Cardiac abnormality Grandparent COPD (chronic obstructive pulmonary disease) Sibling COVID-19 Social History Social History Smoking packs per day: 0.25 Smoking cigarettes per day: 5.0 Years smoked: 9 Smoking pack-years: 2.25 Smoking status: Current every day smoker Tobacco type: cigarettes Se
[2022-04-28] MEDS: ALPRAZolam (*CRX) 0.5 MG TABLET 0.25 MG PO (05:20)
[2022-04-28 05:40] VITALS: BP 118/74; PULSE 100; RESP 18; TEMP 36.6; O2SAT 98
== END 2022-04-28 05:41 | disposition home or self-care (01) ==
LOC: CHSED 05:23
PROVIDERS: Emergency Provider Internal Medicine Critical Care Medicine; PCP Family Medicine
DX: F41.9 Anxiety disorder, unspecified (principal)
CPT/HCPCS: 99283; A9270

== ENCOUNTER 2022-05-07 22:57 | Emergency (ER) | payer BC, SELFPAY ==
--- NOTE | 2022-05-07 00:02 | ECG_ITS ---
Measurements Intervals [place] Rate: 87 P: 47 UT: 114 QRS: 33 QRSD: 87 T: 40 QT: 338 QTc: 408 Interpretive Statements SINUS RHYTHM WITH SINUS ARRHYTHMIA WITH SHORT UT INTERVAL WITHIN NORMAL LIMITS COMPARED TO ECG 04/06/2022 01:45:59 NO SIGNIFICANT CHANGE Electronically Signed On 05-09-2022 8:44:34 NAIL TECH by Chico Dubon M.D.
[2022-05-07 23:00] VITALS: BP 116/77; PULSE 86; RESP 16; TEMP 37.3; O2SAT 98
--- NOTE | 2022-05-07 23:53 | ED.GENADULT ---
HPI - General Adult General Chief complaint: Unspecified Stated complaint: chest pains, shortness of breath, hot flashes History of Present Illness HPI narrative: the patient is a 26-year-old woman with a history of paroxysmal supraventricular tachycardia. She has been worked up with an event monitor, which was completed 3 days ago, see report below. She had been placed on metoprolol and diltiazem. Metoprolol resulted in an allergic reaction. Diltiazem she feels bothers her eyes. She is currently not on any shannan agents. She does take cyclobenzaprine as needed for neck pain, meloxicam as needed, and OCPs. She has had multiple ER visits for anxiety attacks. She has been tried on trazodone and Klonopin by her psychiatrist but she feels Xanax is the only medication that works for her. She has not been successful getting anyone to prescribe that. She presents to the emergency room tonight with chest tightness described as sharp, in the center aspect of her chest, associated with dyspnea and insomnia. She has had prior ER visits for chest pain and has had a workup in the past. No cough or URI symptoms. No abdominal pain. No nausea vomiting. No UTI symptoms. No dizziness. Related Data Home Medications Medication Instructions Recorded Confirmed norethindrone 1 mg-ethinyl 1 tablet PO DAILY 07/02/20 05/07/22 estradiol 10 mcg (24)-iron 10 mcg(2) tablet (Lo Loestrin Fe) Allergies Allergy/AdvReac Type Severity Reaction Status Date / Time Sulfa (Sulfonamide Allergy Mild RASH Verified 05/07/22 23:14 Antibiotics) metoprolol Allergy Rash Verified 05/07/22 23:14 fluoxetine [From Prozac] AdvReac Intermediate Unknown Verified 05/07/22 23:14 Review of Systems Review of Systems: All systems reviewed & are unremarkable except as noted in HPI and below Constitutional: Constitutional: Reports no additional constitutional complaints, Denies anorexia, Denies body ache(s), Denies chills, Denies excessive sweating, Denies fatigue, Denies fever(s), Denies frequent falls, Denies headache(s), Denies malaise and Denies poor appetite Eyes: Eyes: Reports no additional eye complaints, Denies blurry vision, Denies change in vision, Denies irritation, Denies itchy eyes and Denies photophobia ENT: Reports system reviewed and no additional complaints, except as documented, Reports Normal hearing present, Denies change in voice, Denies dysphagia, Denies vertigo, Denies dizziness, Denies ear discharge, Denies headache(s), Denies hearing loss, Denies hoarseness, Denies nasal congestion, Denies neck pain, Denies sinus pressure, Denies sore throat and Denies throat swelling Cardiovascular: Cardiovascular: Reports no additional cardiovascular complaints, Reports chest pain, Denies syncope, Reports rapid heart rate (in the past), Denies irregular heart rhythm, Denies leg edema, Reports dyspnea and Denies slow heart rate Respiratory: Respiratory: Reports no additional respiratory complaints, Denies cough, Reports dyspnea, Denies stridor and Denies wheezing Gastrointestinal: Gastrointestinal: Reports no additional gastrointestinal complaints, Denies abdominal pain, Denies melena, Denies hematochezia, Denies dysphagia, Denies diarrhea, Denies nausea and Denies vomiting Genitourinary: Genitourinary: Denies hematuria, Denies urinary frequency, Denies dysuria, Denies flank pain and Denies urinary urgency Musculoskeletal: Musculoskeletal: Reports no additional musculoskeletal complaints, Denies abnormal gait, Denies back pain, Denies myalgias, Denies arthralgias, Denies joint swelling, Denies limited range of motion, Denies muscle cramps, Denies muscle weakness, Denies neck pain and Denies numbness Integumentary/Breasts: Skin/Breast: Reports system reviewed and no additional complaints, except as docu, Denies breast pain, Denies change in pigmentation, Denies pruritus, Denies erythema and Denies wounds Neurologic: Reports system reviewed and no additional compl
[2022-05-08 00:10] VITALS: BP 126/82; PULSE 88; RESP 16; O2SAT 99
== END 2022-05-08 00:10 | disposition home or self-care (01) ==
PROVIDERS: Emergency Provider Emergency Medicine
DX: F41.9 Anxiety disorder, unspecified (principal); R07.9 Chest pain, unspecified
CPT/HCPCS: 93005; 99283

== ENCOUNTER 2022-05-18 16:35 | Emergency (ER) | payer BC, SELFPAY ==
[2022-05-18 16:35] VITALS: BP 114/77; PULSE 98; RESP 18; TEMP 37.5; O2SAT 97
--- NOTE | 2022-05-18 17:03 | ED.URI ---
HPI - URI/Sore Throat General Chief Complaint: Upper Respiratory Infection Stated Complaint: swollen throat Time Seen by Provider: 05/18/22 16:53 Source: patient Mode of arrival: ambulatory Limitations: no limitations History of Present Illness HPI Narrative: 26-year-old female with a history of anxiety presents to the ER with a 2 day history of -- sore throat and odynophagia. No fever or chills. MD elicited complaint: sore throat Onset (ago): day(s) ( Started 2 days ago) Consistency: constant Severity: moderate Able to tolerate fluids by mouth: Yes Exacerbating factors: nothing Relieving factors: nothing Associated symptoms: denies other symptoms Treatments prior to arrival: none Related Data Home Medications Medication Instructions Recorded Confirmed norethindrone 1 mg-ethinyl 1 tablet PO DAILY 07/02/20 05/18/22 estradiol 10 mcg (24)-iron 10 mcg(2) tablet (Lo Loestrin Fe) Allergies Allergy/AdvReac Type Severity Reaction Status Date / Time Sulfa (Sulfonamide Allergy Mild RASH Verified 05/07/22 23:14 Antibiotics) metoprolol Allergy Rash Verified 05/07/22 23:14 fluoxetine [From Prozac] AdvReac Intermediate Unknown Verified 05/07/22 23:14 Review of Systems Review of Systems: All systems reviewed & are unremarkable except as noted in HPI and below Constitutional: Constitutional: Reports as per HPI and Reports no additional constitutional complaints Eyes: Eyes: Reports as per HPI and Reports no additional eye complaints ENT: Reports system reviewed and no additional complaints, except as documented and Reports as per HPI Cardiovascular: Cardiovascular: Reports as per HPI and Reports no additional cardiovascular complaints Comments: history of recurrent chest discomfort for which she has had extensive cardiac workup. Respiratory: Respiratory: Reports as per HPI and Reports no additional respiratory complaints Gastrointestinal: Gastrointestinal: Reports as per HPI and Reports no additional gastrointestinal complaints Musculoskeletal: Musculoskeletal: Reports no additional musculoskeletal complaints and Reports as per HPI Integumentary/Breasts: Skin/Breast: Reports system reviewed and no additional complaints, except as docu and Reports as per HPI Neurologic: Reports system reviewed and no additional complaints, except as documented and Reports as per HPI Psychiatric: Psychiatric: Reports no additional psychiatric complaints, Reports as per HPI and Reports anxiety Endocrine: Endocrine: Reports no additional endocrine complaints and Reports as per HPI Hematologic/Lymphatic: Hematologic/Lymphatic: Reports no additional hematologic/lymphatic complaints and Reports as per HPI Allergic/Immunologic: Allergic/Immunologic: Reports no additional allergic/immunologic complaints and Reports as per HPI PMFSH Past Medical History Medical History Allergic MARION positive BMI 22.0-22.9, adult BMI 23.0-23.9, adult BMI 24.0-24.9, adult BMI 25.0-25.9,adult Depression Lordosis of cervicothoracic region Neck pain Tobacco abuse Surgical History Surgical History [place] teeth extracted Family History Family History Father Tongue cancer COVID-19 Mother Cardiac abnormality Grandparent COPD (chronic obstructive pulmonary disease) Sibling COVID-19 Social History Social History Smoking packs per day: 0.25 Smoking cigarettes per day: 5.0 Years smoked: 9 Smoking pack-years: 2.25 Smoking status: Current every day smoker Tobacco type: cigarettes Second hand tobacco smoke exposure: Yes Alcohol intake: current Substance use: current Substance use type: marijuana Additional occupation/education comments: [employer] Gender identity (if v
[2022-05-18 18:50] LABS: Influenza A QL RT-PCR Negative (Negative); Influenza B QL RT-PCR Negative (Negative); SARS-CoV-2 RNA PCR Negative (Negative)
[2022-05-18 19:13] LABS: Strep Group A RT-PCR NOT DETECTED (Negative)
[2022-05-18 19:47] VITALS: BP 122/82; PULSE 78; RESP 20; TEMP 36.7; O2SAT 100
== END 2022-05-18 19:49 | disposition home or self-care (01) ==
PROVIDERS: Emergency Provider Internal Medicine Critical Care Medicine
DX: J02.9 Acute pharyngitis, unspecified (principal); F17.210 Nicotine dependence, cigarettes, uncomplicated; Z20.822 Contact with and (suspected) exposure to COVID-19
CPT/HCPCS: 87636; 87651; 99283

== ENCOUNTER 2022-06-01 08:35 | Emergency (ER) | payer BC, SELFPAY ==
--- NOTE | ~2022-06-01 | CT_ITS ---
CT Abdomen and Pelvis with contrast. History: Abdominal pain. Spiral CT of the abdomen and pelvis was performed after the administration of intravenous contrast. 1 00 cc of Omnipaque 350 was administered intravenously without complication. Dose reduction technique was used on this scan by utilizing automated exposure control and iterative reconstruction technique. The dose-length product (DLP) was 335.40 mGy-cm. Findings: Scans through the lung bases demonstrate mild atelectatic change. The liver, spleen, pancreas, gallbladder, adrenals and kidneys are within normal limits. No evidence of aortic aneurysm. No lymphadenopathy is seen. There is no evidence of bowel obstruction. There is no evidence to suggest acute appendicitis or dive rticulitis. Questionable 5.7 x 4.4 cm cystic right adnexal mass versus fluid distended cecum. Suggest ion of mild inflammatory change in the right lower quadrant, with poor delineation the appendix. Urinary bladder unremarkable. No other pelvic mass evident. Impression: Suggestion of mild inflammatory change in the right lower quadrant with poor delineation of the appen pedro. Consider acute appendicitis in the appropriate clinical setting, though the appendix itself is n ot clearly visualized. Suspected fluid-filled cecum versus 5.7 x 4.4 cm cystic right adnexal mass. Reviewed, dictated and finalized at location . TION SPECIALIST Impression: Suggestion of mild inflammatory change in the right lower quadrant with poor de lineation of the appendix. Consider acute appendicitis in the appropriate clini john setting, though the appendix itself is not clearly visualized. Suspected fluid-filled cecum versus 5.7 x 4.4 cm cystic right adnexal mass.
[2022-06-01 08:35] VITALS: BP 109/78; PULSE 63; RESP 18; TEMP 36.9; O2SAT 98
--- NOTE | 2022-06-01 08:56 | ED.ABDPAIN ---
HPI - Abdominal Pain General Chief Complaint: Abdominal Pain Stated Complaint: severe stomach pain Time Seen by Provider: 06/01/22 08:56 Source: patient and RN notes reviewed Mode of arrival: ambulatory Limitations: no limitations History of Present Illness HPI narrative: patient started with small amount of pain last evening. Then this morning approximately 7:00 a.m. she had significant pain in right lower quadrant sharp stabbing peer she denied any fever chills. She denies any nausea vomiting. This seems to have improved since arriving here. MD elicited complaint: abdominal pain Pertinent past history: none Onset (ago): hour(s) (1.5 had a little pain last PM) Pain Consistency: intermittent Location: RLQ Severity: moderate Quality: stabbing and sharp Radiation: none Migration to: no migration Exacerbating factors: nothing Relieving factors: nothing Associated symptoms: denies other symptoms Related Data Home Medications Medication Instructions Recorded Confirmed norethindrone 1 mg-ethinyl 1 tablet PO DAILY 07/02/20 06/01/22 estradiol 10 mcg (24)-iron 10 mcg(2) tablet (Lo Loestrin Fe) Allergies Allergy/AdvReac Type Severity Reaction Status Date / Time Sulfa (Sulfonamide Allergy Mild RASH Verified 06/01/22 08:52 Antibiotics) metoprolol Allergy Rash Verified 06/01/22 08:52 fluoxetine [From Prozac] AdvReac Intermediate Unknown Verified 06/01/22 08:52 Review of Systems Review of Systems: All systems reviewed & are unremarkable except as noted in HPI and below PMFSH Past Medical History Medical History Allergic MARION positive BMI 22.0-22.9, adult BMI 23.0-23.9, adult BMI 24.0-24.9, adult BMI 25.0-25.9,adult Depression Lordosis of cervicothoracic region Neck pain Tobacco abuse Surgical History Surgical History [place] teeth extracted Family History Family History Father Tongue cancer COVID-19 Mother Cardiac abnormality Grandparent COPD (chronic obstructive pulmonary disease) Sibling COVID-19 Social History Social History Smoking packs per day: 0.25 Smoking cigarettes per day: 5.0 Years smoked: 9 Smoking pack-years: 2.25 Smoking status: Former smoker Tobacco type: cigarettes Second hand tobacco smoke exposure: Yes Smoking end date: 02/27/22 Alcohol intake: current Substance use: current Substance use type: marijuana Lack of Transportation: No Lack of Food: Never True Current Housing: I Have Housing Concerned About Future Housing: No Difficulty Paying Gas/Electric Bills: No Difficulty Paying for Meds: No Currently Unemployed: No Education: High School Diploma/GED Difficulty w/ Childcare or Family Care: No Additional occupation/education comments: [employer] Gender identity (if verbalized by the patient): Female Exam Const: General: healthy appearing, no acute distress and alert Nutritional Appearance: well nourished Orientation/consciousness: patient oriented x3 Limitations: no limitations Other: Female nurse in room during examination. HENMT: Head: normal to inspection Eyes: Conjunctivae: conjunctivae normal Pupils: Equal, round and reactive pupils present EOM: EOMs intact bilaterally Neck: Neck: normal visual inspection Resp: Effort & Inspection: normal respiratory effort Auscultation: clear to auscultation bilaterally Cardio: Rate: regular rate Rhythm: regular rhythm GI: GI Palp: Yes Soft to palpation, Yes Tenderness to palpation present (GI) ( Moderate right lower quadrant), Yes Guarding due to palpation present (GI) ( moderate right lower quadrant) and No Rebound tenderness present Auscultation: normal bowel sounds Back/Spine/Pelvis: Back: CVA tenderness (mild on the right)
[2022-06-01 09:29] LABS: Basophils Absolute Auto 0.02 K/mm3 (0.00-0.10); Basophils Percent Auto 0.3 % (0.0-1.0); Eosinophils Absolute Auto 0.06 K/mm3 (0.02-0.50); Hematocrit 39.2 % (35.0-49.0); Hemoglobin 13.7 g/dL (12.0-15.0); Immature Granulocyte Absolute 0.02 K/mm3 (0.00-0.00); Immature Granulocyte Percent A 0.3 % (0.0-0.0); Lymphocytes Absolute Auto 1.25 K/mm3 (1.10-4.50); Mean Corpuscular HGB Conc 34.9 g/dL (32.0-36.0); Mean Corpuscular Hemoglobin 32.5 pg (27.0-31.0); Mean Corpuscular Volume 92.9 fL (78.0-102.0); Monocytes Absolute Auto 0.54 K/mm3 (0.10-0.90); Monocytes Percent Auto 9.1 % (2.0-11.0); Neutrophils Absolute Auto 4.1 K/mm3 (1.7-7.2); Neutrophils Percent Auto 68.3 % (50.0-70.0); Platelet Count Result 239 K/mm3 (150-420); Red Blood Count 4.22 M/mm3 (4.20-5.40); Red Cell Distribution Width 11.3 % (11.6-14.4)
[2022-06-01 09:46] LABS: Add Urine Microscopic? NO; Appearance Urine Clear (Clear); Bilirubin Urine Negative (Negative); Blood Urine Negative (Negative); Color Urine Yellow (Yellow); Glucose Urine UA Negative (Negative); Ketones Urine Negative (Negative); Leukocyte Esterase Ur Negative LEU/UL (Negative); Nitrate Urine Negative (Negative); Protein Urine Negative (Negative); Specific Grav Ur 1.025 (1.010-1.020); Urobilinogen Urine 0.2 mg/dL (0.2-1.0)
[2022-06-01 09:56] LABS: Alanine Aminotransferase 14 U/L (14-59); Alkaline Phosphatase 69 U/L (46-116); Anion Gap 8 mmol/L (8-16); Aspartate Amino Transferase 11 U/L (15-37); Bilirubin,Total 0.6 mg/dL (0.00-1.00); Blood Urea Nitrogen 5 mg/dL (7-18); Calcium 8.8 mg/dL (8.5-10.1); Carbon Dioxide 25 mmol/L (21-32); Chloride 107 mmol/L (98-108); Estimated CRCL calculation 97 ml/min; Estimated Glomerular Filt Rate > 60; Glucose 88 mg/dL (70-99); Lipase 26 U/L (16-77); Osmolality Calculated 286 mOsm/kg (285-295); Potassium 3.7 mmol/L (3.5-5.1); Sodium 140 mmol/L (136-145); Total Protein 7.4 g/dL (6.4-8.2)
[2022-06-01 10:06] LABS: CRP < 0.5 mg/dL (0.0-0.9)
[2022-06-01 10:29] LABS: Pregnancy On Board Control Positive; Urine Pregnancy Test Negative
[2022-06-01 11:20] VITALS: BP 112/89; PULSE 94; RESP 14; TEMP 36.6; O2SAT 99
== END 2022-06-01 11:30 | disposition home or self-care (01) ==
PROVIDERS: Emergency Provider Emergency Medicine; PCP Family Medicine
DX: R10.31 Right lower quadrant pain (principal); Z87.891 Personal history of nicotine dependence; F12.90 Cannabis use, unspecified, uncomplicated
CPT/HCPCS: 36415; 74177; 80053; 81003; 81025; 83605; 83690; 85025; 86140; 99284; Q9967

== ENCOUNTER 2022-06-02 21:01 | Emergency (ER) | payer BC, SELFPAY ==
--- NOTE | ~2022-06-02 | CT_ITS ---
EXAMINATION: CT abdomen pelvis w con DATE: 06/02/2022 22:58 INDICATION: persistent RLQ pain TECHNIQUE: Computed tomography (CT) of the abdomen and pelvis was performed with 100 mL Omnipaque-350 intravenous contrast. Automated exposure control and iterative reconstruction technique were employe d. The dose-length product was 295.41 mGy-cm. COMPARISON: 06/01/2022. FINDINGS: Lower thorax: Unremarkable Liver: Normal. Biliary/Gallbladder: Gallbladder is normal. No bile duct dilation. Pancreas: No mass or duct dilation. Spleen: Normal. Adrenals:No mass. Kidneys: No mass, stone, or hydronephrosis. GI tract: No small or large bowel dilation. Normal appendix. Mesentery/Peritoneum: No ascites, mass, or free air. Retroperitoneum: No mass. Pelvis: Mild bladder wall thickening, the remaining no lytic organs are within normal limits. Soft Tissues: Soft tissues and body wall unremarkable. Bones: No acute osseous finding. IMPRESSION: Normal appendix. Mild bladder wall thickening as can be seen with cystitis. Reviewed, dictated and finalized at location K. CTOR OF REHABILITATION
[2022-06-02 21:07] VITALS: BP 116/84; PULSE 88; RESP 16; TEMP 37.7; O2SAT 97
--- NOTE | 2022-06-02 21:25 | ED.ABDPAIN ---
HPI - Abdominal Pain General Chief Complaint: Abdominal Pain Stated Complaint: heart rate dropping,shortness of breath,confusion Time Seen by Provider: 06/02/22 21:23 History of Present Illness HPI narrative: 26-year-old female patient who was seen yesterday for right lower quadrant pain and worked up with a CT scan that indicated some mild inflammatory change in the right lower quadrant with poor delineation of the appendix. her labs there were normal yesterday. patient was sent home with the Levaquin and metronidazole . The patient states that she is only taking metronidazole and has held off on Levaquin. She states that she has had some improvement in the abdominal pain although she is diver tender in the right lower abdomen and feels some fullness there. She has had good appetite and her last meal was at 4:00 p.m.. She states that she has kept herself hydrated. She states that her heart rate has been variable sometimes high and sometimes low and the lowest was 49 around 7:00 p.m. tonight when she got a little lightheaded and felt dizzy. She did not pass out. She apparently called her primary care provider and was advised to come to the ER to make sure that she did not have a ruptured appendix or a hole in the colon or any sepsis . Patient denies any fever but is vague about some chills. She has had no urinary difficulty except she does experience some pain at the end of the stream. Patient has never been in the past. She is on control pills. Her last menstrual period was a month back. She has some past medical history of tachyarrhythmias and was tried on beta-blockers and diltiazem but is not on any medication currently as she did not tolerate either of those medications well. She is under care of Dr. Verduzco the lead rider at [facility] Related Data Home Medications Medication Instructions Recorded Confirmed norethindrone 1 mg-ethinyl 1 tablet PO DAILY 07/02/20 06/02/22 estradiol 10 mcg (24)-iron 10 mcg(2) tablet (Lo Loestrin Fe) Allergies Allergy/AdvReac Type Severity Reaction Status Date / Time Sulfa (Sulfonamide Allergy Mild RASH Verified 06/01/22 08:52 Antibiotics) metoprolol Allergy Rash Verified 06/01/22 08:52 fluoxetine [From Prozac] AdvReac Intermediate Unknown Verified 06/01/22 08:52 Review of Systems Review of Systems: All systems reviewed & are unremarkable except as noted in HPI and below Constitutional: Constitutional: Reports chills, Denies fatigue, Denies fever(s) and Reports weakness Eyes: Eyes: Denies change in vision and Denies photophobia ENT: Denies dysphagia, Denies vertigo, Denies epistaxis, Denies nasal congestion and Denies sore throat Cardiovascular: Cardiovascular: Denies chest pain, Reports rapid heart rate, Denies radiating jaw, neck or arm pain and Reports slow heart rate Respiratory: Respiratory: Denies chest congestion, Denies cough, Denies dyspnea and Denies wheezing Gastrointestinal: Gastrointestinal: Reports abdominal pain and Reports bloating Genitourinary: Genitourinary: Reports no additional female genitourinary complaints Musculoskeletal: Musculoskeletal: Reports no additional musculoskeletal complaints Integumentary/Breasts: Skin/Breast: Reports system reviewed and no additional complaints, except as docu Neurologic: Reports system reviewed and no additional complaints, except as documented Psychiatric: Psychiatric: Reports no additional psychiatric complaints Endocrine: Endocrine: Reports no additional endocrine complaints Hematologic/Lymphatic: Hematologic/Lymphatic: Reports no additional hematologic/lymphatic complaints Allergic/Immunologic: Allergic/Immunologic: Reports no additional allergic/immunologic complaints PMFSH Past Medical History Medical History Allergic MARION positive BMI 22.0-22.9, adult BMI 23.0-23.9, adult BMI 24.0-24.9, adult BMI 25.0-25.9,adult Depr
--- NOTE | 2022-06-02 21:36 | ECG_ITS ---
Measurements Intervals [place] Rate: 82 P: 29 HI: 105 QRS: 39 QRSD: 81 T: 42 QT: 366 QTc: 429 Interpretive Statements SINUS RHYTHM WITH SHORT HI INTERVAL BORDERLINE ECG COMPARED TO ECG 05/08/2022 00:02:18 NO SIGNIFICANT CHANGES Electronically Signed On 06-03-2022 8:06:01 [employer]PRENTICE by Tee Cortez D.O.
[2022-06-02 21:59] LABS: Basophils Absolute Auto 0.02 K/mm3 (0.00-0.10); Basophils Percent Auto 0.4 % (0.0-1.0); Eosinophils Absolute Auto 0.06 K/mm3 (0.02-0.50); Eosinophils Percent Auto 1.3 % (1.0-6.0); Hematocrit 36.1 % (35.0-49.0); Hemoglobin 12.6 g/dL (12.0-15.0); Immature Granulocyte Absolute 0.01 K/mm3 (0.00-0.00); Immature Granulocyte Percent A 0.2 % (0.0-0.0); Lymphocytes Absolute Auto 1.84 K/mm3 (1.10-4.50); Lymphocytes Percent Auto 38.3 % (18.0-42.0); Mean Corpuscular HGB Conc 34.9 g/dL (32.0-36.0); Mean Corpuscular Hemoglobin 32.1 pg (27.0-31.0); Mean Corpuscular Volume 92.1 fL (78.0-102.0); Mean Platelet Volume 9.8 fl (9.2-11.8); Monocytes Absolute Auto 0.65 K/mm3 (0.10-0.90); Monocytes Percent Auto 13.5 % (2.0-11.0); Neutrophils Absolute Auto 2.2 K/mm3 (1.7-7.2); Neutrophils Percent Auto 46.3 % (50.0-70.0); Platelet Count Result 259 K/mm3 (150-420); Red Blood Count 3.92 M/mm3 (4.20-5.40); Red Cell Distribution Width 11.3 % (11.6-14.4); White Blood Count 4.8 K/mm3 (4.8-10.8)
[2022-06-02] MEDS: SODIUM CHLORIDE 0.9% IV 1,000 ML 999 ML IV CONT (22:12)
[2022-06-02 22:17] LABS: Alanine Aminotransferase 12 U/L (14-59); Albumin Level 3.7 g/dL (3.4-5.0); Alkaline Phosphatase 62 U/L (46-116); Anion Gap 5 mmol/L (8-16); Aspartate Amino Transferase < 10 U/L (15-37); Bilirubin,Total 0.4 mg/dL (0.00-1.00); Blood Urea Nitrogen 4 mg/dL (7-18); Calcium 8.5 mg/dL (8.5-10.1); Carbon Dioxide 29 mmol/L (21-32); Chloride 106 mmol/L (98-108); Estimated Glomerular Filt Rate > 60; Glucose 81 mg/dL (70-99); Osmolality Calculated 285 mOsm/kg (285-295); Potassium 3.7 mmol/L (3.5-5.1); Sodium 140 mmol/L (136-145); Total Protein 6.8 g/dL (6.4-8.2)
[2022-06-02 22:18] LABS: Magnesium 1.9 mg/dL (1.8-2.4); Troponin I < 4.0 ng/L (0.00-60.4)
[2022-06-02 22:31] LABS: Pregnancy On Board Control Positive; Urine Pregnancy Test Negative
[2022-06-02 23:54] VITALS: BP 108/75; PULSE 90; RESP 18; TEMP 37.3; O2SAT 99
== END 2022-06-02 23:55 | disposition home or self-care (01) ==
PROVIDERS: Emergency Provider Emergency Medicine
DX: R10.31 Right lower quadrant pain (principal); Z87.891 Personal history of nicotine dependence; F12.90 Cannabis use, unspecified, uncomplicated
CPT/HCPCS: 36415; 74177; 80053; 81025; 83735; 84484; 85025; 93005; 96360; 99284; J7030; Q9967

== ENCOUNTER 2022-06-11 17:23 | Emergency (ER) | payer BC, SELFPAY ==
[2022-06-11 17:45] VITALS: BP 124/86; PULSE 93; RESP 16; TEMP 37; O2SAT 99
--- NOTE | 2022-06-11 18:10 | ED.BACK ---
HPI - Back Pain/Injury General Stated Complaint: Right lower to mid side back pain Related Data Home Medications Medication Instructions Recorded Confirmed norethindrone 1 mg-ethinyl 1 tablet PO DAILY 07/02/20 06/10/22 estradiol 10 mcg (24)-iron 10 mcg(2) tablet (Lo Loestrin Fe) Allergies Allergy/AdvReac Type Severity Reaction Status Date / Time Sulfa (Sulfonamide Allergy Mild RASH Verified 06/10/22 10:30 Antibiotics) metoprolol Allergy Rash Verified 06/10/22 10:30 fluoxetine [From Prozac] AdvReac Intermediate Unknown Verified 06/10/22 10:30 [facility] Past Medical History Medical History Allergic MARION positive BMI 22.0-22.9, adult BMI 23.0-23.9, adult BMI 24.0-24.9, adult BMI 25.0-25.9,adult Depression Lordosis of cervicothoracic region Neck pain Tachyarrhythmia Tobacco abuse Surgical History Surgical History [place] teeth extracted Family History Family History Father Tongue cancer COVID-19 Mother Cardiac abnormality Grandparent COPD (chronic obstructive pulmonary disease) Sibling COVID-19 Social History Social History Smoking status: Former smoker Alcohol intake: never Substance use: former Lack of Transportation: No Lack of Food: Never True Current Housing: I Have Housing Concerned About Future Housing: No Difficulty Paying Gas/Electric Bills: No Difficulty Paying for Meds: No Currently Unemployed: No Education: High School Diploma/GED Difficulty w/ Childcare or Family Care: No Additional occupation/education comments: [employer] Gender identity (if verbalized by the patient): Female Course Vital Signs Vital signs: Vital Signs Temperature 37.0 C 06/11/22 17:45 Pulse Rate 93 06/11/22 17:45 Respiratory Rate 16 06/11/22 17:45 Blood Pressure 124/86 06/11/22 17:45 Pulse Oximetry 99 06/11/22 17:45 Oxygen Delivery Room Air 06/11/22 17:45 Temperature 37.0 C 06/11/22 17:45 Pulse Rate 93 06/11/22 17:45 Respiratory Rate 16 06/11/22 17:45 Blood Pressure 124/86 06/11/22 17:45 Pulse Oximetry 99 06/11/22 17:45 Oxygen Delivery Room Air 06/11/22 17:45 Discharge Plan Discharge Prescriptions: No Action Lo Loestrin Fe 1 mg-10 mcg (24)/10 mcg (2) tablet 1 tablet PO DAILY Follow-up/Referrals: Michael Montejo MD [Primary Care Provider] -
--- NOTE | 2022-06-11 18:30 | ED.ABDPAIN ---
HPI - Abdominal Pain General Chief Complaint: Abdominal Pain Stated Complaint: Right lower to mid side back pain Source: patient Mode of arrival: ambulatory Limitations: no limitations History of Present Illness HPI narrative: 26-year-old female with anxiety was noted to right lower quadrant abdominal pain for which she was seen on 06/01/2022 and noted to have questionable appendicitis. The following day she had a repeat CT scan which did not show any evidence of appendicitis. On 06/08/2022 the patient sort GI specialist for nausea and the history of right lower quadrant abdominal pain. The patient has seen an ENT specialist for possible GERD. The patient has recently seen Neurology for chronic headaches. She has had a negative MRI of the head and C-spine. she was thought to have migraine variant / seizure disorder/ functional disorder. She was prescribed Ubrelvy p.r.n. for headache. she complains of -- right lower quadrant abdominal pain which radiates to her right flank and right costovertebral angle. The pain started today. No fever. No nausea / vomiting. No diarrhea. This is similar to the pain she has had before. MD elicited complaint: abdominal pain Pertinent past history: none ( Diarrhea alternating with No bowel movement for 2-3 days.) Onset (ago): hour(s) ( Pain started a few hours ago.) Pain Consistency: constant Location: RLQ Severity: mild Quality: aching Radiation: R flank Exacerbating factors: nothing Relieving factors: nothing Associated symptoms: denies other symptoms Related Data Home Medications Medication Instructions Recorded Confirmed norethindrone 1 mg-ethinyl 1 tablet PO DAILY 07/02/20 06/11/22 estradiol 10 mcg (24)-iron 10 mcg(2) tablet (Lo Loestrin Fe) Allergies Allergy/AdvReac Type Severity Reaction Status Date / Time Sulfa (Sulfonamide Allergy Mild RASH Verified 06/10/22 10:30 Antibiotics) metoprolol Allergy Rash Verified 06/10/22 10:30 fluoxetine [From Prozac] AdvReac Intermediate Unknown Verified 06/10/22 10:30 Review of Systems Review of Systems: All systems reviewed & are unremarkable except as noted in HPI and below Constitutional: Constitutional: Reports as per HPI and Reports no additional constitutional complaints Eyes: Eyes: Reports as per HPI and Reports no additional eye complaints ENT: Reports system reviewed and no additional complaints, except as documented and Reports as per HPI Cardiovascular: Cardiovascular: Reports as per HPI and Reports no additional cardiovascular complaints Respiratory: Respiratory: Reports as per HPI and Reports no additional respiratory complaints Gastrointestinal: Gastrointestinal: Reports as per HPI and Reports abdominal pain Genitourinary: Genitourinary: Reports no additional female genitourinary complaints and Reports as per HPI Musculoskeletal: Musculoskeletal: Reports no additional musculoskeletal complaints and Reports as per HPI Integumentary/Breasts: Skin/Breast: Reports system reviewed and no additional complaints, except as docu and Reports as per HPI Neurologic: Reports system reviewed and no additional complaints, except as documented and Reports as per HPI Psychiatric: Psychiatric: Reports no additional psychiatric complaints and Reports as per HPI Endocrine: Endocrine: Reports no additional endocrine complaints and Reports as per HPI Hematologic/Lymphatic: Hematologic/Lymphatic: Reports no additional hematologic/lymphatic complaints and Reports as per HPI Allergic/Immunologic: Allergic/Immunologic: Reports no additional allergic/immunologic complaints and Reports as per HPI PMFSH Past Medical History Medical History Allergic MARION positive BMI 22.0-22.9, adult BMI 23.0-23.9, adult BMI 24.0-24.9, adult BMI 25.0-25.9,adult Depression Lordosis of cervicothoracic region Neck pain Tachyarrhythmia Tobacco abuse Surgical History [facility]ie
--- NOTE | 2022-06-11 18:36 | PC.NURSE ---
REPORT TO MISSY CARDONA NO QUESTIONS OR CONCERNS AT THIS TIME.
[2022-06-11 19:03] LABS: Basophils Absolute Auto 0.02 K/mm3 (0.00-0.10); Basophils Percent Auto 0.4 % (0.0-1.0); Eosinophils Absolute Auto 0.04 K/mm3 (0.02-0.50); Eosinophils Percent Auto 0.8 % (1.0-6.0); Hematocrit 37.7 % (35.0-49.0); Immature Granulocyte Absolute 0.02 K/mm3 (0.00-0.00); Immature Granulocyte Percent A 0.4 % (0.0-0.0); Lymphocytes Absolute Auto 1.52 K/mm3 (1.10-4.50); Lymphocytes Percent Auto 31.3 % (18.0-42.0); Mean Corpuscular HGB Conc 34.5 g/dL (32.0-36.0); Mean Corpuscular Hemoglobin 31.9 pg (27.0-31.0); Mean Corpuscular Volume 92.4 fL (78.0-102.0); Mean Platelet Volume 9.9 fl (9.2-11.8); Monocytes Absolute Auto 0.46 K/mm3 (0.10-0.90); Monocytes Percent Auto 9.5 % (2.0-11.0); Neutrophils Absolute Auto 2.8 K/mm3 (1.7-7.2); Neutrophils Percent Auto 57.6 % (50.0-70.0); Platelet Count Result 236 K/mm3 (150-420); Red Blood Count 4.08 M/mm3 (4.20-5.40); Red Cell Distribution Width 11.5 % (11.6-14.4); White Blood Count 4.9 K/mm3 (4.8-10.8)
[2022-06-11 19:08] VITALS: BP 122/80; PULSE 72; RESP 16; O2SAT 99
[2022-06-11 19:13] LABS: Add Urine Microscopic? YES; Appearance Urine Slightly Cloudy (Clear); Bilirubin Urine Negative (Negative); Blood Urine Negative (Negative); Color Urine Light Yellow (Yellow); Glucose Urine UA Negative (Negative); Ketones Urine 1+ (Negative); Leukocyte Esterase Ur 1+ LEU/UL (Negative); Nitrate Urine Negative (Negative); Protein Urine Negative (Negative); Urobilinogen Urine 0.2 mg/dL (0.2-1.0); pH Urine 6.5 (5.0-8.0)
[2022-06-11 19:16] LABS: RBC Urine 0-2 /hpf (0-2)
[2022-06-11 19:17] LABS: Amorphous Sediment Urine Few; Bacteria Urine 1+ /hpf; Squamous Epithelial Cell Urine Rare /hpf (Few)
[2022-06-11 19:32] LABS: Alanine Aminotransferase 18 U/L (14-59); Albumin Level 3.9 g/dL (3.4-5.0); Alkaline Phosphatase 57 U/L (46-116); Anion Gap 7 mmol/L (8-16); Aspartate Amino Transferase 19 U/L (15-37); Bilirubin,Total 0.5 mg/dL (0.00-1.00); Blood Urea Nitrogen 6 mg/dL (7-18); Calcium 8.9 mg/dL (8.5-10.1); Carbon Dioxide 29 mmol/L (21-32); Chloride 103 mmol/L (98-108); Estimated CRCL calculation 99 ml/min; Estimated Glomerular Filt Rate > 60; Glucose 85 mg/dL (70-99); Osmolality Calculated 284 mOsm/kg (285-295); Potassium 3.4 mmol/L (3.5-5.1); Sodium 139 mmol/L (136-145); Total Protein 7.1 g/dL (6.4-8.2)
[2022-06-11 19:38] LABS: Lactic Acid Reflex 0.9 mmol/L (0.4-2.0)
[2022-06-11 19:55] LABS: Lipase 38 U/L (16-77)
[2022-06-11 20:08] VITALS: BP 122/80; PULSE 78; RESP 16; TEMP 37; O2SAT 98
== END 2022-06-11 20:09 | disposition home or self-care (01) ==
PROVIDERS: Emergency Provider Internal Medicine Critical Care Medicine; PCP Family Medicine
DX: R10.31 Right lower quadrant pain (principal); Z87.891 Personal history of nicotine dependence
CPT/HCPCS: 36415; 80053; 81001; 83605; 83690; 85025; 87086; 99283

== ENCOUNTER 2022-06-15 18:00 | Emergency (ER) | payer BC, SELFPAY ==
[2022-06-15 18:00] VITALS: BP 120/90; PULSE 72; RESP 15; TEMP 36.6; O2SAT 100
[2022-06-15 18:09] VITALS: BP 120/90; PULSE 72; RESP 15; TEMP 36.6; O2SAT 100
--- NOTE | 2022-06-15 18:15 | ED.HA ---
HPI - Headache General Chief Complaint: Headache Stated Complaint: headache Time Seen by Provider: 06/15/22 18:02 Source: patient and RN notes reviewed Mode of arrival: ambulatory Limitations: no limitations History of Present Illness HPI Narrative: patient comes in today with complaints of headache along the right temporal area sharp stabbing pain. she saw her primary care provider this morning according to the chart and she was being seen at that point for neck pain. She has also seen neurology May 27 at that time MRI of the brain and the neck were reviewed with the patient. She is put on migraine medication and told to follow-up in 4 months. She thinks she needs more radiological studies. She has had the headache for 5 days. She has sometimes she has nausea she does not currently have any nausea. She denies any different symptoms than the headaches that she has been evaluated for in the clinic and with the Neurology over the last few months. MD elicited complaint: headache Onset (ago): day(s) (5) Onset description: gradually Location: right and frontal Severity: moderate Quality & Timing: throbbing, dull and constant Exacerbating factors: none Relieving factors: nothing Context: occurred at rest Associated symptoms: nausea ( None currently) Treatments prior to arrival: acetaminophen and migraine medication ( 2 days ago has not taken any since) Related Data Home Medications Medication Instructions Recorded Confirmed norethindrone 1 mg-ethinyl 1 tablet PO DAILY 07/02/20 06/15/22 estradiol 10 mcg (24)-iron 10 mcg(2) tablet (Lo Loestrin Fe) Allergies Allergy/AdvReac Type Severity Reaction Status Date / Time Sulfa (Sulfonamide Allergy Mild RASH Verified 06/15/22 18:13 Antibiotics) metoprolol Allergy Rash Verified 06/15/22 18:13 fluoxetine [From Prozac] AdvReac Intermediate Unknown Verified 06/15/22 18:13 Review of Systems Review of Systems: All systems reviewed & are unremarkable except as noted in HPI and below PMFSH Past Medical History Medical History Allergic MARION positive BMI 22.0-22.9, adult BMI 23.0-23.9, adult BMI 24.0-24.9, adult BMI 25.0-25.9,adult Depression Lordosis of cervicothoracic region Neck pain Tachyarrhythmia Tobacco abuse Surgical History Surgical History [place] teeth extracted Family History Family History Father Tongue cancer COVID-19 Mother Cardiac abnormality Grandparent COPD (chronic obstructive pulmonary disease) Sibling COVID-19 Social History Social History Smoking status: Former smoker Alcohol intake: never Substance use: former Lack of Transportation: No Lack of Food: Never True Current Housing: I Have Housing Concerned About Future Housing: No Difficulty Paying Gas/Electric Bills: No Difficulty Paying for Meds: No Currently Unemployed: No Education: High School Diploma/GED Difficulty w/ Childcare or Family Care: No Additional occupation/education comments: [employer] Gender identity (if verbalized by the patient): Female Exam Const: General: healthy appearing, no acute distress and alert Nutritional Appearance: well nourished Orientation/consciousness: patient oriented x3 Limitations: no limitations Other: female tech in room during examination. HENMT: Head: normal to inspection Ears: external ears normal Face/Nose/Sinus: Normal external nose present Face and sinus: normal facial exam Mouth: Yes Normal oral and palatal mucosa present Eyes: Conjunctivae: conjunctivae normal Pupils: Equal, round and reactive pupils present EOM: EOMs intact bilaterally Neck: Neck: normal visual inspection and no lymphadenopathy Resp: Effort & Inspection: normal respirato
[2022-06-15] MEDS: KETOROLAC (*BKC) 60 MG/2 ML VIAL IM (18:24)
[2022-06-15 18:53] VITALS: BP 120/90; PULSE 72; RESP 15; TEMP 36.6; O2SAT 100
== END 2022-06-15 18:54 | disposition home or self-care (01) ==
PROVIDERS: Emergency Provider Emergency Medicine; PCP Family Medicine
DX: G44.219 Episodic tension-type headache, not intractable (principal); Z87.891 Personal history of nicotine dependence
CPT/HCPCS: 96372; 99283; J1885

== ENCOUNTER 2022-06-19 04:56 | Emergency (ER) | payer BC, SELFPAY ==
[2022-06-19 04:58] VITALS: BP 105/69; PULSE 79; RESP 16; TEMP 36.7; O2SAT 98
[2022-06-19 07:35] VITALS: BP 104/71; PULSE 70; RESP 18; O2SAT 100
[2022-06-19] MEDS: SODIUM CHLORIDE 0.9% IV 1,000 ML 999 ML IV CONT (09:13)
[2022-06-19] MEDS: KETOROLAC 30 MG/ML VIAL (*BKC) IV PUSH (09:14)
[2022-06-19] MEDS: LORazepam INJ (*CRX) 2 MG/ML VIAL 0.25 MG IV PUSH (09:15)
[2022-06-19 09:47] VITALS: BP 106/68; PULSE 79; RESP 18; O2SAT 100
--- NOTE | 2022-06-19 10:30 | ED.GENADULT ---
HPI - General Adult General Chief complaint: Unspecified Stated complaint: right side facial pain/jaw pain Time Seen by Provider: 06/19/22 07:01 History of Present Illness HPI narrative: Patient is a 26-year-old female who presents ER with headache. Right-sided and temporal. Worse with touch of the amish. Patient reports she has had multiple work-ups including a CT and MRI. She has history of migraines. Migraines are usually right-sided with visual aura. This headache feels different. No thunderclap. No sudden onset. Waxes and wanes in intensity and will occasionally improve with with current medication but will slow this way. Patient reports increased stress related to recent positive MARION test as well as need for SVT ablation and her newly diagnosed migraines. No fevers or chills or sweats. No trauma. Related Data Home Medications Medication Instructions Recorded Confirmed norethindrone 1 mg-ethinyl 1 tablet PO DAILY 07/02/20 06/15/22 estradiol 10 mcg (24)-iron 10 mcg(2) tablet (Lo Loestrin Fe) Allergies Allergy/AdvReac Type Severity Reaction Status Date / Time Sulfa (Sulfonamide Allergy Mild RASH Verified 06/19/22 07:36 Antibiotics) metoprolol Allergy Rash Verified 06/19/22 07:36 fluoxetine [From Prozac] AdvReac Intermediate Unknown Verified 06/19/22 07:36 Review of Systems Review of Systems: All systems reviewed & are unremarkable except as noted in HPI and below Constitutional: Constitutional: Denies chills and Denies fever(s) Eyes: Eyes: Denies loss of vision, Denies seeing flashes and Denies spots in vision ENT: Denies nasal congestion and Denies sore throat Neurologic: Reports headache(s), Denies focal weakness and Denies numbness PMFSH Past Medical History Medical History Allergic MARION positive BMI 22.0-22.9, adult BMI 23.0-23.9, adult BMI 24.0-24.9, adult BMI 25.0-25.9,adult Depression Lordosis of cervicothoracic region Neck pain Tachyarrhythmia Tobacco abuse Surgical History Surgical History [place] teeth extracted Family History Family History Father Tongue cancer COVID-19 Mother Cardiac abnormality Grandparent COPD (chronic obstructive pulmonary disease) Sibling COVID-19 Social History Social History Smoking status: Former smoker Alcohol intake: never Substance use: former Lack of Transportation: No Lack of Food: Never True Current Housing: I Have Housing Concerned About Future Housing: No Difficulty Paying Gas/Electric Bills: No Difficulty Paying for Meds: No Currently Unemployed: No Education: High School Diploma/GED Difficulty w/ Childcare or Family Care: No Living arrangements: with roommate(s) Occupation/Education: unemployed Additional occupation/education comments: [employer] Gender identity (if verbalized by the patient): Female Exam Narrative: GENERAL: Tearful-appearing, well-nourished, and in no acute distress. HEAD: Normocephalic, atraumatic. Tenderness to right amish without bulging vasculature. EYES: PERRL and EOMI. ENT: Mucous membranes moist. CHEST: Clear to auscultation. No respiratory distress. HEART: Regular rate and rhythm. Normal peripheral pulses. EXTREMITIES: Normal range of motion. No edema. SKIN: Warm, dry, no rash. NEURO: No focal deficits. Alert and oriented x3. PSYCH: Moderately anxious and tearful. Course Course Emergency Course: Discussed treatment plan and patient verbalized understanding. Moderate improvement with Toradol and fluids. Patient given small amount of Ativan. She seems to be experiencing a lot of anxiety due to recent health changes. She reports she feels at times like she just needs to come speak with a healthcare provider du
[2022-06-19 11:12] VITALS: BP 102/73; PULSE 91; RESP 18; O2SAT 100
== END 2022-06-19 11:14 | disposition home or self-care (01) ==
PROVIDERS: Emergency Provider Emergency Medicine; PCP Family Medicine
DX: G44.209 Tension-type headache, unspecified, not intractable (principal); F06.4 Anxiety disorder due to known physiological condition; Z87.891 Personal history of nicotine dependence
CPT/HCPCS: 96361; 96374; 96375; 99284; J1885; J2060; J7030

== ENCOUNTER 2022-06-25 10:36 | Outpatient (CLI) | payer BC, SELFPAY ==
--- NOTE | 2022-06-27 12:01 | P.NEURO_ITS ---
Neurology EEG Report General Information Date of Study: 06/25/22 TEST EEG DIAGNOSIS right head unusual sensations. CONDITION OF RECORDING Awake and drowsy EEG NUMBER [id number] CLINICAL HISTORY patient reports she has strange tingly sensations over the right side of her head and pain in the right temporal area EEG DESCRIPTION basic resting occipital frequency consists of low to medium voltage well- organized 9 to 11 hertz per 2nd alpha admixed with minimal amount of low-voltage 15 to 18 hertz per 2nd beta posteriorly. Low-voltage beta activity seen diffusely admixed with waxing and waning posterior alpha rhythm during drowsiness. Photic stimulation produced normal drive. Hyperventilation not done. Non paroxysmal. Nonfocal. Nonlateralizing. IMPRESSION Normal record
== END 2022-06-25 10:37 | disposition home or self-care (01) ==
LOC: ANHNEURO 10:38
PROVIDERS: PCP Family Medicine; Visit Provider Student in an Organized Health Care Education/Training Program
DX: R20.2 Paresthesia of skin (principal)
CPT/HCPCS: 95816

== ENCOUNTER 2022-07-16 00:48 | Day surgery (SDC) | payer BC, SELFPAY ==
[2022-07-01 13:31] VITALS: BMI 24.3
--- NOTE | 2022-07-15 19:34 | PM.HPGS ---
History of Present Illness History of Present Illness Consent: Risks, benefits, and alternatives have been discussed and questions answered. Patient agrees to proceed with procedure. Chief complaint: GERD, Crohn's Disease, Abnormal Radiology findings Narrative: Marti Donnelly is a 26 year old female who was having severe pain in the right lower quadrant accompanied by nausea.? She had gone to the emergency room on June [address] scan was done that showed: Suggestion of mild inflammatory change in the right lower quadrant with poor delineation of the appendix. Consider acute appendicitis in the appropriate clinical setting, though the appendix itself is not clearly visualized. .Suspected fluid-filled cecum versus 5.7 x 4.4 cm cystic right adnexal mass .Initially her pain was in right lower quadrant.? Now she is more uncomfortable in the right upper quadrant in actually underneath the ribs in the lower right thorax She was given antibiotics, Levaquin and metronidazole.? She returned to the emergency room the next day.? A CT scan then showed that the appendix was okay and there was no evidence of abnormality.? That day she had gone back to emergency room at the advice of her primary care physician because she was lightheaded had tachycardia.. She has had a change in bowel habits over the past a year so.? She will have no bowel movement for 2-3 days and then may have several loose stools in 1 day.? She suffers from nausea particularly in the morning in fact on 2 occasions was checked to make sure she was not .? Her weight has been stable although she has lost about 4 lb in the last month or so. The she was thought to possibly have reflux when she saw an ENT physician regarding throat problems but a 2nd ENT, a 'specialist' did an endoscopic procedure in said everything looked normal. serology for inflammatory bowel disease was all normal except for ASCA of 31 Review of Systems Review of Systems: All systems reviewed & are unremarkable except as noted in HPI and below PMFSH Past Medical History Medical History Allergic MARION positive BMI 22.0-22.9, adult BMI 23.0-23.9, adult BMI 24.0-24.9, adult BMI 25.0-25.9,adult Depression Lordosis of cervicothoracic region Neck pain Tachyarrhythmia Tobacco abuse Surgical History Surgical History [place] teeth extracted Family History Family History Father Tongue cancer COVID-19 Mother Cardiac abnormality Grandparent COPD (chronic obstructive pulmonary disease) Sibling COVID-19 Social History Social History Years smoked: 10 Smoking status: Former smoker Tobacco type: cigarettes Second hand tobacco smoke exposure: No Alcohol intake: never Substance use: former Substance use type: marijuana Lack of Transportation: No Lack of Food: Never True Current Housing: I Have Housing Concerned About Future Housing: No Difficulty Paying Gas/Electric Bills: No Difficulty Paying for Meds: No Currently Unemployed: No Education: High School Diploma/GED Difficulty w/ Childcare or Family Care: No Living arrangements: with family Occupation/Education: unemployed Additional occupation/education comments: [employer] Gender identity (if verbalized by the patient): Female Spiritual care concerns: No Meds Home Medications and Allergies Home Medications Medication Instructions Recorded Confirmed Type norethindrone 1 mg-ethinyl 1 tablet PO DAILY 07/02/20 07/16/22 History estradiol 10 mcg (24)-iron 10 mcg(2) tablet (Lo Loestrin Fe) Lactobacillus 1 cap PO DAILY 07/01/22 07/16/22 History acidophilus-Bifidobac.animalis 2.5 billion cell capsule (Daily Probiotic) apple cider vinegar 500 mg tabl
[2022-07-16 09:20] VITALS: BP 119/73; PULSE 94; RESP 18; TEMP 36.4; O2SAT 95; BMI 22.8
[2022-07-16] MEDS: LACTATED RINGERS 1,000 ML 150 ML IV CONT (09:49)
[2022-07-16] MEDS: BENZOCAINE (*SP) 60 ML SPRAY CAN (HURRICAINE) 1 SPRAY MUCOUS MEM (10:24)
--- NOTE | 2022-07-16 10:36 | SUR.OPER ---
EGD ENDED 1028, COLONOSCOPY STARTED 1035
[2022-07-16 10:47] VITALS: BP 89/40; PULSE 70; RESP 19; O2SAT 100
[2022-07-16 10:57] VITALS: BP 99/68; PULSE 70; RESP 20; O2SAT 100
[2022-07-16 11:07] VITALS: BP 104/66; PULSE 64; RESP 20; O2SAT 100
== END 2022-07-16 11:23 | disposition home or self-care (01) ==
PROVIDERS: PCP Family Medicine; Visit Provider Internal Medicine Gastroenterology
PROC: 0DJ08ZZ Inspection of Upper Intestinal Tract, Via Natural or Artificial Opening Endoscopic (ICD-10-PCS; CPT 43235; principal; 2022-07-16 10:30)
DX: Z12.11 Encounter for screening for malignant neoplasm of colon (principal); K64.8 Other hemorrhoids; R19.4 Change in bowel habit; R13.10 Dysphagia, unspecified; K21.9 Gastro-esophageal reflux disease without esophagitis; Z87.891 Personal history of nicotine dependence
CPT/HCPCS: 45380; 43239; 87081; 88305; J2704; J7120

== ENCOUNTER 2022-07-20 12:26 | Emergency (ER) | payer BC, SELFPAY ==
[2022-07-20] VITALS (9 sets, daily range): BP systolic 107–130; BP diastolic 74–102; PULSE 94–220; RESP 16–26; TEMP 36.9–37.3; O2SAT 99–100
--- NOTE | 2022-07-20 12:27 | ED.ARRPALP ---
HPI - Arrhythmia/Palpitations General Chief Complaint: Arrhythmia/Palpitations Stated Complaint: ELEVATED HR Time Seen by Provider: 07/20/22 12:26 Source: patient and RN notes reviewed Mode of arrival: ambulatory Limitations: no limitations History of Present Illness HPI narrative: Patient has a history of PSVT. She is scheduled to get an ablation in August. She began having symptoms this morning she tried all the vagal maneuvers which she said never work. Says many times it just goes back into normal sinus rhythm on its own but today it persisted. She feels short of breath. She denies any nausea vomiting. MD complaint: heart racing Onset (ago): minute(s) (30) Duration: constant Severity: similar to previous episodes Context: occurred during rest Arrhythmia history: SVT Associated symptoms: shortness of breath Treatments prior to arrival: vagal maneuvers Related Data Home Medications Medication Instructions Recorded Confirmed norethindrone 1 mg-ethinyl 1 tablet PO DAILY 07/02/20 07/16/22 estradiol 10 mcg (24)-iron 10 mcg(2) tablet (Lo Loestrin Fe) Lactobacillus 1 cap PO DAILY 07/01/22 07/16/22 acidophilus-Bifidobac.animalis 2.5 billion cell capsule (Daily Probiotic) apple cider vinegar 500 mg tablet 500 mg PO DAILY 07/01/22 07/16/22 glucosamine sulfate 500 mg tablet 500 mg PO DAILY 07/01/22 07/16/22 (Glucosamine) lorazepam 0.5 mg tablet 0.5 mg PO BID PRN Anxiety 07/01/22 07/16/22 melatonin 10 mg tablet 10 mg PO HS PRN Insomnia 07/01/22 07/16/22 meloxicam 7.5 mg tablet 7.5 mg PO DAILY PRN Pain 07/01/22 07/16/22 multivitamin with minerals-folic 1 tablet PO DAILY 07/01/22 07/16/22 acid 0.4 mg tablet sumatriptan succinate 50 mg tablet 50 mg PO DAILY PRN Migraine 07/01/22 07/16/22 (Imitrex) Headache Allergies Allergy/AdvReac Type Severity Reaction Status Date / Time Sulfa (Sulfonamide Allergy Mild RASH Verified 07/16/22 09:31 Antibiotics) metoprolol Allergy Rash Verified 07/16/22 09:31 fluoxetine [From Prozac] AdvReac Intermediate Unknown Verified 07/16/22 09:31 Review of Systems Review of Systems: All systems reviewed & are unremarkable except as noted in HPI and below PMFSH Past Medical History Medical History Allergic MARION positive BMI 22.0-22.9, adult BMI 23.0-23.9, adult BMI 24.0-24.9, adult BMI 25.0-25.9,adult Depression Lordosis of cervicothoracic region Neck pain Tachyarrhythmia Tobacco abuse Surgical History Surgical History [place] teeth extracted Family History Family History Father Tongue cancer COVID-19 Mother Cardiac abnormality Grandparent COPD (chronic obstructive pulmonary disease) Sibling COVID-19 Social History Social History Years smoked: 10 Smoking status: Former smoker Tobacco type: cigarettes Second hand tobacco smoke exposure: No Alcohol intake: never Substance use: former Substance use type: marijuana Lack of Transportation: No Lack of Food: Never True Current Housing: I Have Housing Concerned About Future Housing: No Difficulty Paying Gas/Electric Bills: No Difficulty Paying for Meds: No Currently Unemployed: No Education: High School Diploma/GED Difficulty w/ Childcare or Family Care: No Living arrangements: with family Occupation/Education: unemployed 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 HENMT: Head: normal to
[2022-07-20] MEDS: ADENOSINE IV SOLN 6 MG/2 ML VIAL IV PUSH (12:32)
[2022-07-20] MEDS: SODIUM CHLORIDE 0.9% IV 100 ML 500 ML (12:33)
--- NOTE | 2022-07-20 12:37 | ECG_ITS ---
Measurements Intervals [place] Rate: 195 P: TN: 0 QRS: 61 QRSD: 88 T: 94 QT: 234 QTc: 422 Interpretive Statements SUPRAVENTRICULAR TACHYCARDIA ST DEPRESSION, CONSIDER SUBENDOCARDIAL INJURY [0.1+ mV ST DEPRESSION] CRITICAL TEST RESULT ABNORMAL ECG COMPARED TO ECG 06/02/2022 21:47:28 SUPRAVENTRICULAR TACHYCARDIA NOW PRESENT Electronically Signed On 07-20-2022 14:18:59 DETHISTLER OPERATOR by Tani Olmos M.D.
== END 2022-07-20 13:14 | disposition home or self-care (01) ==
LOC: CHSED 13:04
PROVIDERS: Emergency Provider Emergency Medicine; PCP Family Medicine
DX: I47.1 Supraventricular tachycardia (principal); Z87.891 Personal history of nicotine dependence
CPT/HCPCS: 93005; 96374; 99284; J0153

== ENCOUNTER 2022-07-21 14:15 | Emergency (ER) | payer BC, SELFPAY ==
--- NOTE | ~2022-07-21 | XR_ITS ---
EXAMINATION: XR chest 2V 07/21/2022 15:13 INDICATION: Midsternal chest pain and shortness of breath PROCEDURE: 2 view chest COMPARISON: 04/06/2022 FINDINGS: The lungs are clear. The cardiomediastinal silhouette is within normal limits. There are no pleural effusions. There is no pneumothorax suspected. IMPRESSION: 1: NO ACUTE CARDIOPULMONARY DISEASE. Reviewed, dictated and finalized at location B. ECUTTER ASSISTANT
[2022-07-21 14:20] VITALS: BP 122/89; PULSE 80; PULSE 82; RESP 16; TEMP 36.9; O2SAT 99
--- NOTE | 2022-07-21 14:32 | ECG_ITS ---
Measurements Intervals [place] Rate: 72 P: 44 ID: 109 QRS: 52 QRSD: 89 T: 57 QT: 374 QTc: 410 Interpretive Statements SINUS RHYTHM WITH SHORT [place] INTERVAL ABNORMAL ECG COMPARED TO ECG 07/20/2022 12:30:34 SINUS RHYTHM NOW PRESENT Electronically Signed On 07-22-2022 10:10:43 INSTRUCTIONAL LEADER by Tani Olmos M.D.
[2022-07-21] MEDS: MAG HYDROX/ALUMINUM HYD/SIMETH 30 ML, PHENobarb/HYOSCY/ATROPINE/SCOP 32.4 MG, LIDOCAINE... PO (14:44)
[2022-07-21 14:58] LABS: Basophils Absolute Auto 0.02 K/mm3 (0.00-0.10); Basophils Percent Auto 0.5 % (0.0-1.0); Eosinophils Absolute Auto 0.02 K/mm3 (0.02-0.50); Eosinophils Percent Auto 0.5 % (1.0-6.0); Hematocrit 38.1 % (35.0-49.0); Hemoglobin 13.4 g/dL (12.0-15.0); Immature Granulocyte Absolute 0.01 K/mm3 (0.00-0.00); Immature Granulocyte Percent A 0.2 % (0.0-0.0); Lymphocytes Absolute Auto 1.28 K/mm3 (1.10-4.50); Mean Corpuscular HGB Conc 35.2 g/dL (32.0-36.0); Mean Corpuscular Volume 90.9 fL (78.0-102.0); Mean Platelet Volume 9.5 fl (9.2-11.8); Monocytes Absolute Auto 0.34 K/mm3 (0.10-0.90); Neutrophils Absolute Auto 2.6 K/mm3 (1.7-7.2); Neutrophils Percent Auto 60.8 % (50.0-70.0); Platelet Count Result 250 K/mm3 (150-420); Red Blood Count 4.19 M/mm3 (4.20-5.40); Red Cell Distribution Width 11.3 % (11.6-14.4); White Blood Count 4.3 K/mm3 (4.8-10.8)
--- NOTE | 2022-07-21 14:59 | ED.CHESTPAIN ---
HPI - Chest Pain General Chief Complaint: Chest Pain Stated Complaint: SOB Time Seen by Provider: 07/21/22 14:20 History of Present Illness HPI narrative: This is a 26-year-old female with past medical history of paroxysmal SVT, who presents to the emergency department complaining of substernal chest pain and dyspnea on exertion for the past day and a half. The patient states she was seen in this emergency department yesterday for an episode of SVT that improved with adenosine. Since then she has felt a sharp, midline, substernal, 4/10 chest pain that does not radiate. It is exacerbated by exertion without obvious alleviating factors. Related Data Home Medications Medication Instructions Recorded Confirmed norethindrone 1 mg-ethinyl 1 tablet PO DAILY 07/02/20 07/21/22 estradiol 10 mcg (24)-iron 10 mcg(2) tablet (Lo Loestrin Fe) Lactobacillus 1 cap PO DAILY 07/01/22 07/21/22 acidophilus-Bifidobac.animalis 2.5 billion cell capsule (Daily Probiotic) apple cider vinegar 500 mg tablet 500 mg PO DAILY 07/01/22 07/21/22 glucosamine sulfate 500 mg tablet 500 mg PO DAILY 07/01/22 07/21/22 (Glucosamine) lorazepam 0.5 mg tablet 0.5 mg PO BID PRN Anxiety 07/01/22 07/21/22 melatonin 10 mg tablet 10 mg PO HS PRN Insomnia 07/01/22 07/21/22 meloxicam 7.5 mg tablet 7.5 mg PO DAILY PRN Pain 07/01/22 07/21/22 multivitamin with minerals-folic 1 tablet PO DAILY 07/01/22 07/21/22 acid 0.4 mg tablet sumatriptan succinate 50 mg tablet 50 mg PO DAILY PRN Migraine 07/01/22 07/21/22 (Imitrex) Headache Allergies Allergy/AdvReac Type Severity Reaction Status Date / Time Sulfa (Sulfonamide Allergy Mild RASH Verified 07/16/22 09:31 Antibiotics) metoprolol Allergy Rash Verified 07/16/22 09:31 fluoxetine [From Prozac] AdvReac Intermediate Unknown Verified 07/16/22 09:31 Review of Systems Review of Systems: CONSTITUTIONAL: Denies fever, chills, or sweats. CARDIOVASCULAR: Chest pain Denies palpitations, or edema. RESPIRATORY: Dyspnea on exertion denies cough GASTROINTESTINAL: Denies abdominal pain, nausea, vomiting, or diarrhea. GENITOURINARY: Denies dysuria or hematuria. SKIN: Denies rash or itching. MUSCULOSKELETAL: Denies back pain, joint pain, or myalgia. NEUROLOGIC: Denies headache, numbness, dizziness, or weakness. PSYCHIATRIC: Denies anxiety or depression. [facility] Past Medical History Medical History (Updated 07/21/22 @ 15:45 by Gonzalo Servin MD) Allergic MARION positive BMI 22.0-22.9, adult BMI 23.0-23.9, adult BMI 24.0-24.9, adult BMI 25.0-25.9,adult Depression Lordosis of cervicothoracic region Neck pain PSVT (paroxysmal supraventricular tachycardia) Tachyarrhythmia Tobacco abuse Surgical History Surgical History [place] teeth extracted Family History Family History Father Tongue cancer COVID-19 Mother Cardiac abnormality Grandparent COPD (chronic obstructive pulmonary disease) Sibling COVID-19 Social History Social History Years smoked: 10 Smoking status: Former smoker Tobacco type: cigarettes Second hand tobacco smoke exposure: No Alcohol intake: never Substance use: former Substance use type: marijuana Lack of Transportation: No Lack of Food: Never True Current Housing: I Have Housing Concerned About Future Housing: No Difficulty Paying Gas/Electric Bills: No Difficulty Paying for Meds: No Currently Unemployed: No Education: High School Diploma/GED Difficulty w/ Childcare or Family Care: No Living arrangements: with family Occupation/Education: unemployed 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
[2022-07-21 15:12] LABS: D Dimer 0.19 mg/L (0.19-0.50)
[2022-07-21 15:21] LABS: SPREG INTERNAL CONTROL Positive; Serum Qual hCG Negative
[2022-07-21 15:25] LABS: Alanine Aminotransferase 15 U/L (14-59); Albumin Level 4.2 g/dL (3.4-5.0); Alkaline Phosphatase 65 U/L (46-116); Anion Gap 9 mmol/L (8-16); Aspartate Amino Transferase < 10 U/L (15-37); Bilirubin,Total 0.5 mg/dL (0.00-1.00); Blood Urea Nitrogen 3 mg/dL (7-18); Calcium 9.4 mg/dL (8.5-10.1); Carbon Dioxide 28 mmol/L (21-32); Chloride 105 mmol/L (98-108); Estimated CRCL calculation 96 ml/min; Estimated Glomerular Filt Rate > 60; Glucose 93 mg/dL (70-99); NT Pro B Type Natriuretic Pept 163 pg/mL (0-125); Osmolality Calculated 290 mOsm/kg (285-295); Potassium 3.7 mmol/L (3.5-5.1); Sodium 142 mmol/L (136-145); Total Protein 7.9 g/dL (6.4-8.2); Troponin I < 4.0 ng/L (0.00-60.4)
[2022-07-21 15:51] VITALS: BP 126/84; PULSE 89; RESP 16; TEMP 36.9; O2SAT 98
== END 2022-07-21 16:00 | disposition home or self-care (01) ==
PROVIDERS: Emergency Provider Preventive Medicine Aerospace Medicine; PCP Family Medicine
DX: R07.89 Other chest pain (principal); I47.1 Supraventricular tachycardia; Z87.891 Personal history of nicotine dependence
CPT/HCPCS: 36415; 71046; 80053; 83880; 84484; 84703; 85025; 85380; 93005; 99284; A9270

== ENCOUNTER 2022-07-25 17:47 | Emergency (ER) | payer BC, SELFPAY ==
[2022-07-25 17:46] VITALS: BP 113/76; PULSE 88; RESP 18; TEMP 37.1; O2SAT 99
[2022-07-25 17:55] VITALS: BP 113/76; PULSE 88; RESP 18; TEMP 37.1; O2SAT 99
--- NOTE | 2022-07-25 18:23 | PC.NURSE ---
during erp exam pt states she has felt sob and has had c/p since her svt episode on 07/20. resp even and non-labored.
--- NOTE | 2022-07-25 18:34 | ED.SOB ---
HPI - SOB/Dyspnea General Chief Complaint: Extremity Injury, Upper Stated Complaint: short of breath, chest pain, feels weak Time Seen by Provider: 07/25/22 18:02 Source: patient and RN notes reviewed Mode of arrival: ambulatory Limitations: no limitations History of Present Illness HPI Narrative: Patient recently here 5 days ago for an episode of PSVT. She was converted with 6 mg of adenosine and discharged home. She returned the next day for chest pain and had full further evaluation with EKG lab work and chest x-ray that were all normal. She was given a GI cocktail for the suspected pain and she improved. She was discharged home diagnosis of atypical chest pain. Today patient said she had an acute severe pain in her right biceps. She said it was a severe pain and she was concerned it might be associated with her heart. She continues to feel shortness of breath and some occasional chest discomfort since her episode of PSVT. She still concerned that there might be something going on with her heart. She denies any nausea vomiting. She denies any rapid heartbeat. She denies any palpitations. She denies any fever chills diaphoresis. MD elicited complaint: shortness of breath Onset (ago): day(s) (5) Timing: constant Severity: moderate Exacerbating factors: nothing Relieving factors: nothing Associated symptoms: denies other symptoms Treatment prior to arrival: none Related Data Home Medications Medication Instructions Recorded Confirmed norethindrone 1 mg-ethinyl 1 tablet PO DAILY 07/02/20 07/25/22 estradiol 10 mcg (24)-iron 10 mcg(2) tablet (Lo Loestrin Fe) Lactobacillus 1 cap PO DAILY 07/01/22 07/25/22 acidophilus-Bifidobac.animalis 2.5 billion cell capsule (Daily Probiotic) apple cider vinegar 500 mg tablet 500 mg PO DAILY 07/01/22 07/25/22 glucosamine sulfate 500 mg tablet 500 mg PO DAILY 07/01/22 07/25/22 (Glucosamine) lorazepam 0.5 mg tablet 0.5 mg PO BID PRN Anxiety 07/01/22 07/25/22 melatonin 10 mg tablet 10 mg PO HS PRN Insomnia 07/01/22 07/25/22 meloxicam 7.5 mg tablet 7.5 mg PO DAILY PRN Pain 07/01/22 07/25/22 multivitamin with minerals-folic 1 tablet PO DAILY 07/01/22 07/25/22 acid 0.4 mg tablet sumatriptan succinate 50 mg tablet 50 mg PO DAILY PRN Migraine 07/01/22 07/25/22 (Imitrex) Headache Allergies Allergy/AdvReac Type Severity Reaction Status Date / Time Sulfa (Sulfonamide Allergy Mild RASH Verified 07/25/22 17:59 Antibiotics) metoprolol Allergy Rash Verified 07/25/22 17:59 fluoxetine [From Prozac] AdvReac Intermediate Unknown Verified 07/25/22 17:59 Review of Systems Review of Systems: All systems reviewed & are unremarkable except as noted in HPI and below PMFSH Past Medical History Medical History Allergic MARION positive BMI 22.0-22.9, adult BMI 23.0-23.9, adult BMI 24.0-24.9, adult BMI 25.0-25.9,adult Depression Lordosis of cervicothoracic region Neck pain PSVT (paroxysmal supraventricular tachycardia) Tachyarrhythmia Tobacco abuse Surgical History Surgical History [place] teeth extracted Family History Family History Father Tongue cancer COVID-19 Mother Cardiac abnormality Grandparent COPD (chronic obstructive pulmonary disease) Sibling COVID-19 Social History Social History Years smoked: 10 Smoking status: Former smoker Tobacco type: cigarettes Second hand tobacco smoke exposure: No Alcohol intake: never Substance use: former Substance use type: marijuana Lack of Transportation: No Lack of Food: Never True Current Housing: I Have Housing Concerned About Future Housing: No Difficulty Paying Gas/Electric Bills: No Difficulty Paying for Meds: No Currently Unemployed: No Education: High School Diploma/GED Di
[2022-07-25 18:59] LABS: Hematocrit 37.8 % (35.0-49.0); Hemoglobin 13.5 g/dL (12.0-15.0); Mean Corpuscular HGB Conc 35.7 g/dL (32.0-36.0); Mean Corpuscular Hemoglobin 32.5 pg (27.0-31.0); Mean Corpuscular Volume 91.1 fL (78.0-102.0); Mean Platelet Volume 9.6 fl (9.2-11.8); Platelet Count Result 252 K/mm3 (150-420); Red Blood Count 4.15 M/mm3 (4.20-5.40); Red Cell Distribution Width 11.3 % (11.6-14.4); White Blood Count 3.4 K/mm3 (4.8-10.8)
[2022-07-25 19:11] LABS: D Dimer 0.19 mg/L (0.19-0.50)
[2022-07-25 19:23] LABS: Alanine Aminotransferase 15 U/L (14-59); Alkaline Phosphatase 66 U/L (46-116); Anion Gap 8 mmol/L (8-16); Aspartate Amino Transferase 12 U/L (15-37); Bilirubin,Total 0.5 mg/dL (0.00-1.00); Blood Urea Nitrogen 3 mg/dL (7-18); Calcium 9.2 mg/dL (8.5-10.1); Carbon Dioxide 29 mmol/L (21-32); Chloride 105 mmol/L (98-108); Estimated CRCL calculation 96 ml/min; Estimated Glomerular Filt Rate > 60; Glucose 119 mg/dL (70-99); Magnesium 2.2 mg/dL (1.8-2.4); NT Pro B Type Natriuretic Pept 58 pg/mL (0-125); Osmolality Calculated 291 mOsm/kg (285-295); Potassium 3.5 mmol/L (3.5-5.1); Sodium 142 mmol/L (136-145); Total Protein 7.6 g/dL (6.4-8.2); Troponin I 4.4 ng/L (0.00-60.4)
[2022-07-25 19:34] VITALS: BP 122/71; PULSE 97; RESP 20; TEMP 36.6; O2SAT 99
[2022-07-25 19:36] LABS: Band Neutrophils Percent 0 % (0-6); Neutrophils Percent Manual 62 % (46-73); Total Cells Counted 100
[2022-07-25 19:37] LABS: Basophils Absolute Manual 0.03 K/mm3 (0-0.1); Basophils Percent Manual 1 % (0-1); Eosinophils Absolute Manual 0.06 K/mm3 (0.02-0.5); Eosinophils Percent Manual 2 % (1-6); Lymphocytes Absolute Manual 1.05 K/mm3 (1.1-4.5); Lymphocytes Percent Manual 31 % (18-44); Monocytes Absolute Manual 0.13 K/mm3 (0.1-0.90); Monocytes Percent Manual 4 % (3-9); Platelet Estimate Adequate (Adequate)
[2022-07-25 19:38] LABS: Atypical Lymphocytes Present; Schistocytes None Seen (NORMAL)
== END 2022-07-25 19:36 | disposition home or self-care (01) ==
PROVIDERS: Emergency Provider Emergency Medicine; PCP Family Medicine
DX: F41.9 Anxiety disorder, unspecified (principal); R06.02 Shortness of breath; I47.1 Supraventricular tachycardia; Z87.891 Personal history of nicotine dependence
CPT/HCPCS: 36415; 80053; 83735; 83880; 84484; 85025; 85380; 99284

== ENCOUNTER 2022-07-30 11:26 | Outpatient (CLI) | payer BC, SELFPAY | END 2022-07-30 11:27 | disposition home or self-care (01) | LOC: ANHLAB 11:28 | PROVIDERS: PCP Family Medicine; Visit Provider Nurse Practitioner Family | DX: F41.9 Anxiety disorder, unspecified (principal) | CPT/HCPCS: 36415; 84436; 84443 ==

== ENCOUNTER 2022-09-24 17:13 | Emergency (ER) | payer BC, SELFPAY ==
[2022-09-24 17:15] VITALS: BP 124/80; PULSE 93; RESP 20; TEMP 36.9; O2SAT 99
--- NOTE | 2022-09-24 17:30 | ED.HA ---
HPI - Headache General Chief Complaint: Dizziness Stated Complaint: Dizziness Time Seen by Provider: 09/24/22 17:20 Source: patient and RN notes reviewed Mode of arrival: ambulatory Limitations: no limitations History of Present Illness HPI Narrative: patient has a history of SVT and went to [facility] 2 days ago had a cardiac ablation done. Since then she says that she has been seeing some flashes of light in the center of her vision has been having headache as well. She tried some Tylenol yesterday which seemed to help headache a little bit but the flashes of light persisted. When she called up the hospital in [place] because of her visual changes that she should be seen in the emergency room. She otherwise has no difficulty with ambulation. No weakness on 1 side of her body or the other. Not having difficulty with mentation or coordination. She says she just wanted to be checked out. MD elicited complaint: headache Onset (ago): day(s) (2) Onset description: gradually Location: diffuse Severity: moderate Quality & Timing: aching and dull Exacerbating factors: none Relieving factors: nothing Context: occurred at rest Associated symptoms: none Treatments prior to arrival: acetaminophen ( Yesterday) Related Data Home Medications Medication Instructions Recorded Confirmed norethindrone 1 mg-ethinyl 1 tablet PO DAILY 07/02/20 09/24/22 estradiol 10 mcg (24)-iron 10 mcg(2) tablet (Lo Loestrin Fe) lorazepam 0.5 mg tablet 0.5 mg PO BID PRN Anxiety 07/01/22 09/24/22 Allergies Allergy/AdvReac Type Severity Reaction Status Date / Time Sulfa (Sulfonamide Allergy Mild RASH Verified 09/14/22 08:59 Antibiotics) metoprolol Allergy Rash Verified 09/14/22 08:59 fluoxetine [From Prozac] AdvReac Intermediate Unknown Verified 09/14/22 08:59 Review of Systems Review of Systems: All systems reviewed & are unremarkable except as noted in HPI and below PMFSH Past Medical History Medical History Allergic MARION positive BMI 22.0-22.9, adult BMI 23.0-23.9, adult BMI 24.0-24.9, adult BMI 25.0-25.9,adult Depression Fibromyalgia Lordosis of cervicothoracic region Neck pain PSVT (paroxysmal supraventricular tachycardia) Tachyarrhythmia Tobacco abuse Surgical History Surgical History [place] teeth extracted Family History Family History Father Tongue cancer COVID-19 Mother Cardiac abnormality Grandparent COPD (chronic obstructive pulmonary disease) Sibling COVID-19 Social History Social History Years smoked: 10 Smoking status: Former smoker Tobacco type: cigarettes Second hand tobacco smoke exposure: No Alcohol intake: never Substance use: former Substance use type: marijuana Lack of Transportation: No Lack of Food: Never True Current Housing: I Have Housing Concerned About Future Housing: No Difficulty Paying Gas/Electric Bills: No Difficulty Paying for Meds: No Currently Unemployed: No Education: High School Diploma/GED Difficulty w/ Childcare or Family Care: No Living arrangements: with family Occupation/Education: unemployed Additional occupation/education comments: [email or web address] Gender identity (if verbalized by the patient): Female Spiritual care concerns: No Exam Const: General: healthy appearing, no acute distress and alert Nutritional Appearance: well nourished Orientation/consciousness: patient oriented x3 Limitations: no limitations Other: female nurse in room during examination. HENMT: Head: normal to inspection Ears: external ears normal Face/Nose/Sinus: Normal external nose present Face and sinus: normal facial exam Mouth: Yes Normal oral and palatal mucosa present Eyes: Conju
[2022-09-24 17:32] VITALS: BP 122/79; PULSE 85; RESP 18; O2SAT 99
== END 2022-09-24 17:41 | disposition home or self-care (01) ==
LOC: CHSED 17:40
PROVIDERS: Emergency Provider Emergency Medicine; PCP Family Medicine
DX: G44.209 Tension-type headache, unspecified, not intractable (principal); Z87.891 Personal history of nicotine dependence
CPT/HCPCS: 99283

== ENCOUNTER 2022-12-07 16:29 | Emergency (ER) | payer BC, SELFPAY ==
[2022-12-07 16:33] VITALS: BP 124/82; PULSE 94; RESP 20; TEMP 37.7; O2SAT 99
--- NOTE | 2022-12-07 16:42 | ECG_ITS ---
Measurements Intervals [place] Rate: 88 P: 57 [place]: 113 QRS: 36 QRSD: 92 T: 48 QT: 345 QTc: 419 Interpretive Statements SINUS RHYTHM WITH SINUS ARRHYTHMIA WITH SHORT [place] INTERVAL BORDERLINE ECG COMPARED TO ECG 07/21/2022 14:44:21 SINUS ARRHYTHMIA NOW PRESENT Electronically Signed On 12-07-2022 20:26:34 CDT by Tee Cortez D.O.
--- NOTE | 2022-12-07 16:44 | ED.GENADULT ---
HPI - General Adult General Chief complaint: Dizziness Stated complaint: Dizziness Time Seen by Provider: 12/07/22 16:37 History of Present Illness HPI narrative: The patient is a 27-year-old woman with history of depression, fibromyalgia, anxiety, GERD, TMJ syndrome, who had SVT and underwent recent catheter ablation. Does not smoke or use drugs. For the last 5 days, the patient has had dizziness episodes, with vertigo, clamminess to her skin, lightheadedness, near syncope, and nausea but no vomiting. No headache. No abdominal pain or chest pain. No fevers or chills. No URI or UTI symptoms. No previous similar history. Related Data Home Medications Medication Instructions Recorded Confirmed norethindrone 1 mg-ethinyl 1 tablet PO DAILY 07/02/20 12/07/22 estradiol 10 mcg (24)-iron 10 mcg(2) tablet (Lo Loestrin Fe) Allergies Allergy/AdvReac Type Severity Reaction Status Date / Time Sulfa (Sulfonamide Allergy Mild RASH Verified 12/07/22 16:37 Antibiotics) diltiazem Allergy Rash Verified 12/07/22 16:37 metoprolol Allergy Rash Verified 12/07/22 16:37 fluoxetine [From Prozac] AdvReac Intermediate Unknown Verified 12/07/22 16:37 Review of Systems Review of Systems: All systems reviewed & are unremarkable except as noted in HPI and below Constitutional: Constitutional: Denies chills, Denies excessive sweating, Denies fatigue, Denies fever(s), Denies headache(s) and Denies weakness Eyes: Eyes: Denies change in vision and Denies photophobia ENT: Denies dysphagia, Reports dizziness, Denies headache(s), Denies lip swelling, Denies nasal congestion, Denies sore throat and Denies tongue swelling Cardiovascular: Cardiovascular: Denies chest pain, Denies syncope, Denies rapid heart rate and Denies dyspnea Respiratory: Respiratory: Denies cough, Denies dyspnea and Denies wheezing Gastrointestinal: Gastrointestinal: Denies abdominal pain, Denies constipation, Denies dysphagia, Denies diarrhea, Reports nausea and Denies vomiting Genitourinary: Genitourinary: Denies hematuria, Denies urinary frequency, Denies dysuria and Denies urinary urgency Musculoskeletal: Musculoskeletal: Denies back pain, Denies myalgias, Denies arthralgias, Denies joint swelling and Denies numbness Integumentary/Breasts: Skin/Breast: Denies pruritus, Denies erythema and Denies rash Neurologic: Denies confusion, Reports dizziness, Denies syncope, Denies headache(s), Denies focal weakness, Denies numbness and Denies weakness Psychiatric: Psychiatric: Reports anxiety and Denies confusion Endocrine: Endocrine: Denies excessive sweating and Denies fatigue Hematologic/Lymphatic: Hematologic/Lymphatic: Denies easy bleeding and Denies easy bruising Allergic/Immunologic: Allergic/Immunologic: Denies lip swelling, Denies tongue swelling and Denies wheezing PMFSH Past Medical History Medical History Allergic MARION positive BMI 22.0-22.9, adult BMI 23.0-23.9, adult BMI 24.0-24.9, adult BMI 25.0-25.9,adult Depression Fibromyalgia Lordosis of cervicothoracic region Neck pain PSVT (paroxysmal supraventricular tachycardia) Tachyarrhythmia Tobacco abuse Surgical History Surgical History [place] teeth extracted Family History Family History Father Tongue cancer COVID-19 Mother Cardiac abnormality Grandparent COPD (chronic obstructive pulmonary disease) Sibling COVID-19 Social History Social History Years smoked: 10 Smoking status: Former smoker Tobacco type: cigarettes Second hand tobacco smoke exposure: No Alcohol intake: never Substance use: former Substance use type: marijuana Lack of Transportation: No Lack of Food: Never True Current Housing: I Have Housing Concerned About Future Housing: No D
[2022-12-07] MEDS: MECLIZINE HCL 25 MG TABLET 50 MG PO (16:58)
[2022-12-07] MEDS: SODIUM CHLORIDE 0.9% IV 1,000 ML 999 ML IV CONT (16:59)
[2022-12-07] MEDS: ONDANSETRON INJ 4 MG/2 ML VIAL IV PUSH (17:00)
[2022-12-07 17:02] VITALS: BP 116/83
[2022-12-07 17:03] VITALS: BP 128/95; BP 129/84
[2022-12-07 17:09] LABS: Basophils Absolute Auto 0.02 K/mm3 (0.00-0.10); Basophils Percent Auto 0.4 % (0.0-1.0); Eosinophils Absolute Auto 0.03 K/mm3 (0.02-0.50); Eosinophils Percent Auto 0.6 % (1.0-6.0); Hematocrit 42.5 % (35.0-49.0); Hemoglobin 14.3 g/dL (12.0-15.0); Immature Granulocyte Absolute 0.01 K/mm3 (0.00-0.00); Immature Granulocyte Percent A 0.2 % (0.0-0.0); Lymphocytes Absolute Auto 1.51 K/mm3 (1.10-4.50); Lymphocytes Percent Auto 31.3 % (18.0-42.0); Mean Corpuscular HGB Conc 33.6 g/dL (32.0-36.0); Mean Corpuscular Hemoglobin 29.3 pg (27.0-31.0); Mean Corpuscular Volume 87.1 fL (78.0-102.0); Mean Platelet Volume 9.8 fl (9.2-11.8); Monocytes Absolute Auto 0.38 K/mm3 (0.10-0.90); Monocytes Percent Auto 7.9 % (2.0-11.0); Neutrophils Absolute Auto 2.9 K/mm3 (1.7-7.2); Neutrophils Percent Auto 59.6 % (50.0-70.0); Platelet Count Result 280 K/mm3 (150-420); Red Blood Count 4.88 M/mm3 (4.20-5.40); Red Cell Distribution Width 11.9 % (11.6-14.4); White Blood Count 4.8 K/mm3 (4.8-10.8)
[2022-12-07 17:10] LABS: Appearance Urine Clear (Clear); Bilirubin Urine Negative (Negative); Blood Urine Negative (Negative); Color Urine Light Yellow (Yellow); Glucose Urine UA Negative (Negative); Ketones Urine Negative (Negative); Leukocyte Esterase Ur 1+ LEU/UL (Negative); Nitrate Urine Negative (Negative); Protein Urine Negative (Negative); Urobilinogen Urine 0.2 mg/dL (0.2-1.0); pH Urine 7.5 (5.0-8.0)
[2022-12-07 17:14] LABS: Pregnancy On Board Control Positive; Urine Pregnancy Test Negative
[2022-12-07 17:16] LABS: Add Urine Microscopic? YES; Bacteria Urine 1+ /hpf; RBC Urine None seen /hpf (0-2); Squamous Epithelial Cell Urine Few /hpf (Few); WBC Urine 0-3 /hpf (0-3)
[2022-12-07 17:25] LABS: Amphetamine Screen Urine Negative (Negative); Barbiturate Screen Urine Negative (Negative); Benzodiazepines Screen Urine Negative (Negative); Cannabinoid Screen Urine Positive (Negative); Cocaine Screen Urine Negative (Negative); Methadone Screen Urine Negative (Negative); Opiate Screen Urine Negative (Negative); Phencyclidine Screen Urine Negative (Negative)
[2022-12-07 17:27] LABS: Alanine Aminotransferase 11 U/L (14-59); Albumin Level 4.1 g/dL (3.4-5.0); Alkaline Phosphatase 80 U/L (46-116); Anion Gap 12 mmol/L (8-16); Aspartate Amino Transferase 10 U/L (15-37); Bilirubin,Total 0.5 mg/dL (0.00-1.00); Blood Urea Nitrogen 10 mg/dL (7-18); Calcium 9.2 mg/dL (8.5-10.1); Carbon Dioxide 26 mmol/L (21-32); Chloride 103 mmol/L (98-108); Estimated CRCL calculation 84 ml/min; Estimated Glomerular Filt Rate > 60; Glucose 88 mg/dL (70-99); Osmolality Calculated 290 mOsm/kg (285-295); Potassium 3.6 mmol/L (3.5-5.1); Sodium 141 mmol/L (136-145); Total Protein 8.1 g/dL (6.4-8.2)
[2022-12-07 17:35] LABS: Ethanol < 3 mg/dL (0-6); Troponin I < 4.0 ng/L (0.00-60.4)
[2022-12-07 17:38] LABS: Thyroid Stimulating Hormone Reflex 5.38 u/IU/mL (0.36-3.74)
[2022-12-07 17:50] VITALS: BP 118/69; PULSE 65; RESP 16; TEMP 36.4; O2SAT 100
[2022-12-07 18:04] LABS: Free T4 Free Thyroxine Reflex 0.78 ng/dL (0.76-1.46)
--- NOTE | 2022-12-09 16:45 | PC.NURSE ---
Final Urine culture report: No growth. No further action or treatment needed.
== END 2022-12-07 17:55 | disposition home or self-care (01) ==
PROVIDERS: Emergency Provider Emergency Medicine; PCP Family Medicine
DX: R42 Dizziness and giddiness (principal); R55 Syncope and collapse; R11.0 Nausea; R82.81 Pyuria; F32.A Depression, unspecified; Z79.899 Other long term (current) drug therapy; Z87.891 Personal history of nicotine dependence
CPT/HCPCS: 36415; 80053; 80307; 81001; 81025; 84439; 84443; 84484; 85025; 87086; 93005; 96361; 96374; 99284; A9270; J2405; J7030

== ENCOUNTER 2023-02-02 06:20 | Emergency (ER) | payer BC, SELFPAY ==
--- NOTE | ~2023-02-02 | CT_ITS ---
EXAMINATION: CT abdomen pelvis wo con DATE: 02/02/2023 06:53 INDICATION: Right abdominal pain. TECHNIQUE: Computed tomography (CT) of the abdomen and pelvis was performed without intravenous contr ast. Automated exposure control and iterative reconstruction technique were employed. The dose-length product was 274.99 mGy-cm. COMPARISON: CT abdomen and pelvis 06/02/2022 FINDINGS: The visualized portions of the lung bases demonstrate mild atelectasis on the left. No pleu ral effusion. The heart size is normal. No pericardial effusion. The liver, gallbladder, spleen, panc reas, adrenal glands, and kidneys are normal. There is no urolithiasis. There are no dilated loops of bowel. The appendix is not visualized. There are no pathologically enlarged lymph nodes. There is no free intraperitoneal fluid. There is a Schmorl's node of superior endplate of T12. IMPRESSION: 1. No etiology for the patient's symptoms. Reviewed, dictated and finalized at location A.
[2023-02-02 06:20] VITALS: BP 109/77; PULSE 96; RESP 16; TEMP 37.2; O2SAT 99
--- NOTE | 2023-02-02 06:24 | ED_ITS ---
Nucleated RBC % Not Reportable Abs Neuts (Manual) 1.70 (1.7-7.2) K/mm3 Abs Lymphs (Manual) 1.51 (1.1-4.5) K/mm3 Abs Monocytes (Manual) 0.40 (0.1-0.90) K/mm3 Absolute Eos (Manual) 0.07 (0.02-0.5) K/mm3 Abs Basophils (Manual) 0.00 (0-0.1) K/mm3 Platelet Estimate Adequate (Adequate) Schistocytes Not Reportable PT 10.7 (9.64-11.0) Seconds INR 1.0 APTT 25.3 (23.90-30.70) SEC Sodium 139 (136-145) mmol/L Potassium 3.6 (3.5-5.1) mmol/L Chloride 107 (98-108) mmol/L Carbon Dioxide 25 (21-32) mmol/L Anion Gap 7 L (8-16) mmol/L BUN 10 (7-18) mg/dL Creatinine 0.68 (0.55-1.02) mg/dL Estim Creat Clear Calc 102 ml/min Estimated GFR > 60 (59 - ) Glucose 87 (70-99) mg/dL Calculated Osmolality 286 (285-295) mOsm/kg Calcium 8.6 (8.5-10.1) mg/dL Total Bilirubin 0.3 (0.00-1.00) mg/dL AST 10 L (15-37) U/L ALT 8 L (14-59) U/L Alkaline Phosphatase 73 (46-116) U/L Total Protein 6.5 (6.4-8.2) g/dL Albumin 3.3 L (3.4-5.0) g/dL Urine Color Light yellow (Yellow) Urine Appearance Clear (Clear) Urine pH 6.0 (5.0-8.0) Ur Specific [place] 1.015 (1.010-1.020) Urine Protein Negative (Negative) Urine Glucose (UA) Negative (Negative) Urine Ketones Negative (Negative) Ur Blood (Man) Negative (Negative) Urine Nitrate Negative (Negative) Urine Bilirubin Negative (Negative) Urine Urobilinogen 0.2 (0.2-1.0) mg/dL Leukocyte Esterase Rfl Trace H (Negative) MARILY/UL Urine RBC None seen (0-2) /hpf Urine WBC 10-15 H (0-3) /hpf Ur Squamous Epith Cells Few (Few) /hpf Urine Bacteria 1+ H (None) /hpf Urine Test Negative <Milton Galindo MD - Last Filed: 02/04/23 07:08> Lab Results 02/02/23 02/02/23 Range/Units 06:23 06:42 WBC 3.7 L (4.8-10.8) K/mm3 RBC 4.28 (4.20-5.40) M/mm3 Hgb 12.6 (12.0-15.0) g/dL Hct 37.2 (35.0-49.0) % MCV 86.9 (78.0-102.0) fL MCH 29.4 (27.0-31.0) pg MCHC 33.9 (32.0-36.0) g/dL RDW 12.8 (11.6-14.4) % Plt Count 213 (150-420) K/mm3 MPV 10.1 (9.2-11.8) fl Immature Gran % (Auto) Not Reportable Neut % (Auto) Not Reportable Lymph % (Auto) Not Reportable [place] % (Auto) Not Reportable Eos % (Auto) Not Reportable Baso % (Auto) Not Reportable Lymph # (Auto) Not Reportable Bryan # (Auto) Not Reportable Eos # (Auto) Not Reportable Baso # (Auto) Not Reportable Abs Immat Gran (auto) Not Reportable Absolute Neuts (auto) Not Reportable Absolute Nucleated RBC Not Reportable Total Counted 100 Neutrophils % (Manual) 46 (46-73) % Band Neutrophils % 0 (0-6) % Lymphocytes % (Manual) 41 (18-44) % Monocytes % (Manual) 11 H (3-9) % Eosinophils % (Manual) 2 (1-6) % Basophils % (Manual) 0 (0-1) % Nucleated RBC % Not Reportable Abs Neuts (Manual) 1.70 (1.7-7.2) K/mm3 Abs Lymphs (Manual) 1.51 (1.1-4.5) K/mm3 A
--- NOTE | 2023-02-02 06:24 | ED.ABDPAIN ---
HPI - Abdominal Pain General Chief Complaint: Abdominal Pain <Milton Galindo MD - Last Filed: 02/04/23 07:08> Stated Complaint: abd pain <Milton Galindo MD - Last Filed: 02/04/23 07:08> Time Seen by Provider: 02/02/23 06:22 <Milton Galindo MD - Last Filed: 02/04/23 07:08> Source: patient <Milton Galindo MD - Last Filed: 02/04/23 07:08> Mode of arrival: ambulatory <Milton Galindo MD - Last Filed: 02/04/23 07:08> Limitations: no limitations <Milton Galindo MD - Last Filed: 02/04/23 07:08> History of Present Illness HPI narrative: patient is a 27-year-old female with right lower quadrant abdominal pain. She has had abdominal pain issues on and off for a while and has had multiple workups with her primary and filterer recently. So far, her workup has been negative and there is a slight concern for endometriosis. <Milton Galinod MD - Last Filed: 02/04/23 07:08> MD elicited complaint: abdominal pain <Milton Galindo MD - Last Filed: 02/04/23 07:08> Pertinent past history: diverticulitis <Milton Galindo MD - Last Filed: 02/04/23 07:08> Onset (ago): day(s) <Milton Galindo MD - Last Filed: 02/04/23 07:08> Pain Consistency: intermittent <Milton Galindo MD - Last Filed: 02/04/23 07:08> Location: RLQ <Milton Galindo MD - Last Filed: 02/04/23 07:08> Severity: moderate <Milton Galindo MD - Last Filed: 02/04/23 07:08> Pain scale (0-10): 4 <Milton Galindo MD - Last Filed: 02/04/23 07:08> Quality: cramping <Milton Galindo MD - Last Filed: 02/04/23 07:08> Radiation: none <Milton Galindo MD - Last Filed: 02/04/23 07:08> Migration to: no migration <Milton Galindo MD - Last Filed: 02/04/23 07:08> Exacerbating factors: nothing <Milton Galindo MD - Last Filed: 02/04/23 07:08> Relieving factors: nothing <Milton Galindo MD - Last Filed: 02/04/23 07:08> Associated symptoms: denies other symptoms <Milton Galindo MD - Last Filed: 02/04/23 07:08> Related Data Patient : No <Milton Galindo MD - Last Filed: 02/04/23 07:08> Home Medications: Home Medications Medication Instructions Recorded Confirmed norethindrone 1 mg-ethinyl 1 tablet PO DAILY 07/02/20 02/02/23 estradiol 10 mcg (24)-iron 10 mcg(2) tablet (Lo Loestrin Fe) <Milton Galindo MD - Last Filed: 02/04/23 07:08> Allergies/Adverse Reactions: Allergies Allergy/AdvReac Type Severity Reaction Status Date / Time Sulfa (Sulfonamide Allergy Mild RASH Verified 01/13/23 14:05 Antibiotics) diltiazem Allergy Rash Verified 01/13/23 14:05 metoprolol Allergy Rash Verified 01/13/23 14:05 fluoxetine [From Prozac] AdvReac Intermediate Unknown Verified 01/13/23 14:05 <Milton Galindo MD - Last Filed: 02/04/23 07:08> Review of Systems Review of Systems: All systems reviewed & are unremarkable except as noted in HPI and below <Milton Galindo MD - Last Filed: 02/04/23 07:08> Constitutional: Constitutional: Reports no additional constitutional complaints <Milton Galindo MD - Last Filed: 02/04/23 07:08> Eyes: Eyes: Reports no additional eye complaints <Milton Galindo MD - Last Filed: 02/04/23 07:08> ENT: Reports system reviewed and no additional complaints, except as documented <Milton Galindo MD - Last Filed: 02/04/23 07:08> Cardiovascular: Cardiovascular: Reports no additional cardiovascular complaints <Milton Galindo MD - Last Filed: 02/04/23 07:08> Respiratory: Respiratory: Reports no additional respiratory complaints <Milton Galindo MD - Last Filed: 02/04/23 07:08> Gastrointestinal: Gastrointestinal: Reports no additional gastrointestinal complaints <Miltno Galindo MD - Last Filed: 02/04/23 07:08> Genitourinary: Genitourinary: Reports no additional female genitourinary complaints <Milton Galindo MD - Last Filed: 02/04/23 07
[2023-02-02 06:31] LABS: Appearance Urine Clear (Clear); Bilirubin Urine Negative (Negative); Blood Urine Negative (Negative); Color Urine Light Yellow (Yellow); Glucose Urine UA Negative (Negative); Ketones Urine Negative (Negative); Leukocyte Esterase Ur Trace LEU/UL (Negative); Nitrate Urine Negative (Negative); Protein Urine Negative (Negative); Specific Grav Ur 1.015 (1.010-1.020); Urobilinogen Urine 0.2 mg/dL (0.2-1.0)
[2023-02-02 06:33] LABS: Pregnancy On Board Control Positive; Urine Pregnancy Test Negative
[2023-02-02 06:36] LABS: Add Urine Microscopic? YES; Bacteria Urine 1+ /hpf; RBC Urine None seen /hpf (0-2); Squamous Epithelial Cell Urine Few /hpf (Few)
[2023-02-02 06:47] LABS: Hematocrit 37.2 % (35.0-49.0); Hemoglobin 12.6 g/dL (12.0-15.0); Mean Corpuscular HGB Conc 33.9 g/dL (32.0-36.0); Mean Corpuscular Hemoglobin 29.4 pg (27.0-31.0); Mean Corpuscular Volume 86.9 fL (78.0-102.0); Mean Platelet Volume 10.1 fl (9.2-11.8); Platelet Count Result 213 K/mm3 (150-420); Red Blood Count 4.28 M/mm3 (4.20-5.40); Red Cell Distribution Width 12.8 % (11.6-14.4); White Blood Count 3.7 K/mm3 (4.8-10.8)
[2023-02-02 06:57] LABS: Band Neutrophils Percent 0 % (0-6); Basophils Percent Manual 0 % (0-1); Eosinophils Absolute Manual 0.07 K/mm3 (0.02-0.5); Eosinophils Percent Manual 2 % (1-6); Lymphocytes Absolute Manual 1.51 K/mm3 (1.1-4.5); Lymphocytes Percent Manual 41 % (18-44); Monocytes Percent Manual 11 % (3-9); Neutrophils Percent Manual 46 % (46-73); Total Cells Counted 100
[2023-02-02 06:58] LABS: Platelet Estimate Adequate (Adequate)
[2023-02-02 07:01] LABS: Alanine Aminotransferase 8 U/L (14-59); Albumin Level 3.3 g/dL (3.4-5.0); Alkaline Phosphatase 73 U/L (46-116); Anion Gap 7 mmol/L (8-16); Aspartate Amino Transferase 10 U/L (15-37); Bilirubin,Total 0.3 mg/dL (0.00-1.00); Blood Urea Nitrogen 10 mg/dL (7-18); Calcium 8.6 mg/dL (8.5-10.1); Carbon Dioxide 25 mmol/L (21-32); Chloride 107 mmol/L (98-108); Estimated CRCL calculation 102 ml/min; Estimated Glomerular Filt Rate > 60; Glucose 87 mg/dL (70-99); Osmolality Calculated 286 mOsm/kg (285-295); Potassium 3.6 mmol/L (3.5-5.1); Sodium 139 mmol/L (136-145); Total Protein 6.5 g/dL (6.4-8.2)
[2023-02-02 07:02] LABS: Prothrombin Time 10.7 Seconds (9.64-11.0)
[2023-02-02 07:11] LABS: Partial Thromboplastin Time 25.3 SEC (23.90-30.70)
[2023-02-02 07:15] VITALS: BP 113/69; PULSE 96; RESP 20; O2SAT 97
[2023-02-02 08:10] VITALS: BP 103/68; PULSE 96; RESP 18; TEMP 37.2; O2SAT 93
[2023-02-02 08:12] VITALS: BP 103/68; PULSE 96; RESP 20; O2SAT 93
--- NOTE | 2023-02-04 12:57 | PC.NURSE ---
Final urine culture result; No growth, no further treatment or action needed.
== END 2023-02-02 08:13 | disposition home or self-care (01) ==
PROVIDERS: Emergency Medicine; Emergency Provider Internal Medicine Critical Care Medicine; PCP Family Medicine
DX: N39.0 Urinary tract infection, site not specified (principal); R10.31 Right lower quadrant pain; Z79.899 Other long term (current) drug therapy; Z87.891 Personal history of nicotine dependence
CPT/HCPCS: 36415; 74176; 80053; 81001; 81025; 85025; 85610; 85730; 87086; 99284

== ENCOUNTER 2023-03-09 15:44 | Emergency (ER) | payer BC, SELFPAY ==
[2023-03-09] VITALS (14 sets, daily range): BP systolic 105–114; BP diastolic 65–84; PULSE 73–94; RESP 14–24; TEMP 36.3–37.5; O2SAT 97–99
--- NOTE | 2023-03-09 15:50 | ECG_ITS ---
Measurements Intervals [place] Rate: 97 P: 71 [place]: 112 QRS: 35 QRSD: 81 T: 50 QT: 328 QTc: 418 Interpretive Statements SINUS RHYTHM WITH SINUS ARRHYTHMIA WITH SHORT [place] INTERVAL ABNORMAL ECG COMPARED TO ECG 12/07/2022 16:56:11 NO SIGNIFICANT CHANGES Electronically Signed On 03-10-2023 9:06:03 CDT by Tani Olmos M.D.
--- NOTE | 2023-03-09 15:59 | ED.CHESTPAIN ---
HPI - Chest Pain General Chief Complaint: Chest Pain Stated Complaint: chest pain Time Seen by Provider: 03/09/23 15:59 Source: patient Mode of arrival: ambulatory Limitations: no limitations History of Present Illness HPI narrative: 27-year-old female a history SVT status post ablation in May of 2022, anxiety presents to the ER with 1 hour history of -- substernal chest pain which started after she drank a large cup of coffee from [employer]. No radiation of the pain. No nausea / vomiting. No lightheadedness or dizziness. MD complaint: chest pain Onset (ago): hour(s) ( Symptoms started 1 hour ago and a still persistent) Timing of current episode: constant Prior episodes: Yes Onset: during rest Pain location: substernal Pain radiation: none Severity: moderate Pain scale (0-10): 8 Quality: aching Relieving factors: nothing Exacerbating factors: nothing Treatment prior to arrival: none Risk Factors Coronary artery disease risk factors: none Thoracic aortic dissection risk factors: none Related Data On Oral Contraceptives: Yes Home Medications Medication Instructions Recorded Confirmed norethindrone 1 mg-ethinyl 1 tablet PO DAILY 07/02/20 03/09/23 estradiol 10 mcg (24)-iron 10 mcg(2) tablet (Lo Loestrin Fe) Allergies Allergy/AdvReac Type Severity Reaction Status Date / Time Sulfa (Sulfonamide Allergy Mild RASH Verified 03/09/23 16:05 Antibiotics) diltiazem Allergy Rash Verified 03/09/23 16:05 metoprolol Allergy Rash Verified 03/09/23 16:05 fluoxetine [From Prozac] AdvReac Intermediate Unknown Verified 03/09/23 16:05 Review of Systems Review of Systems: All systems reviewed & are unremarkable except as noted in HPI and below Constitutional: Constitutional: Reports as per HPI and Reports no additional constitutional complaints Eyes: Eyes: Reports as per HPI and Reports no additional eye complaints ENT: Reports system reviewed and no additional complaints, except as documented and Reports as per HPI Cardiovascular: Cardiovascular: Reports as per HPI, Reports no additional cardiovascular complaints and Reports chest pain Respiratory: Respiratory: Reports as per HPI and Reports no additional respiratory complaints Gastrointestinal: Gastrointestinal: Reports as per HPI and Reports no additional gastrointestinal complaints Genitourinary: Genitourinary: Reports no additional female genitourinary complaints and Reports as per HPI Musculoskeletal: Musculoskeletal: Reports no additional musculoskeletal complaints and Reports as per HPI Integumentary/Breasts: Skin/Breast: Reports system reviewed and no additional complaints, except as docu and Reports as per HPI Neurologic: Reports system reviewed and no additional complaints, except as documented and Reports as per HPI Psychiatric: Psychiatric: Reports no additional psychiatric complaints and Reports as per HPI Endocrine: Endocrine: Reports no additional endocrine complaints and Reports as per HPI Hematologic/Lymphatic: Hematologic/Lymphatic: Reports no additional hematologic/lymphatic complaints and Reports as per HPI Allergic/Immunologic: Allergic/Immunologic: Reports no additional allergic/immunologic complaints and Reports as per HPI [facility] Past Medical History Medical History (Updated 03/09/23 @ 18:03 by Boo Roland MD) Allergic MARION positive BMI 22.0-22.9, adult BMI 23.0-23.9, adult BMI 24.0-24.9, adult BMI 25.0-25.9,adult Depression Fibromyalgia Lordosis of cervicothoracic region Neck pain PSVT (paroxysmal supraventricular tachycardia) SVT (supraventricular tachycardia) Tachyarrhythmia Tobacco abuse Surgical History Surgical History (Updated 03/09/23 @ 16:16 by Boo Roland MD) S/P ablation operation for arrhythmia [place] teeth extracted Family History Family History Father Tongue cancer COVID-19 Mother Cardiac abnormality Grandparent COPD (chronic
[2023-03-09 17:38] LABS: Basophils Absolute Auto 0.03 K/mm3 (0.00-0.10); Basophils Percent Auto 0.5 % (0.0-1.0); Eosinophils Absolute Auto 0.02 K/mm3 (0.02-0.50); Eosinophils Percent Auto 0.4 % (1.0-6.0); Hematocrit 41.1 % (35.0-49.0); Hemoglobin 13.9 g/dL (12.0-15.0); Immature Granulocyte Absolute 0.01 K/mm3 (0.00-0.00); Immature Granulocyte Percent A 0.2 % (0.0-0.0); Lymphocytes Absolute Auto 1.02 K/mm3 (1.10-4.50); Lymphocytes Percent Auto 18.1 % (18.0-42.0); Mean Corpuscular HGB Conc 33.8 g/dL (32.0-36.0); Mean Corpuscular Hemoglobin 29.3 pg (27.0-31.0); Mean Corpuscular Volume 86.7 fL (78.0-102.0); Mean Platelet Volume 10.1 fl (9.2-11.8); Monocytes Absolute Auto 0.41 K/mm3 (0.10-0.90); Monocytes Percent Auto 7.3 % (2.0-11.0); Neutrophils Absolute Auto 4.2 K/mm3 (1.7-7.2); Neutrophils Percent Auto 73.5 % (50.0-70.0); Platelet Count Result 231 K/mm3 (150-420); Red Blood Count 4.74 M/mm3 (4.20-5.40); Red Cell Distribution Width 11.9 % (11.6-14.4); White Blood Count 5.7 K/mm3 (4.8-10.8)
[2023-03-09 17:56] LABS: Alanine Aminotransferase 9 U/L (14-59); Albumin Level 3.8 g/dL (3.4-5.0); Alkaline Phosphatase 87 U/L (46-116); Anion Gap 11 mmol/L (8-16); Aspartate Amino Transferase 10 U/L (15-37); Bilirubin,Total 0.4 mg/dL (0.00-1.00); Blood Urea Nitrogen 7 mg/dL (7-18); Calcium 9.4 mg/dL (8.5-10.1); Carbon Dioxide 25 mmol/L (21-32); Chloride 103 mmol/L (98-108); Creatine Kinase 32 U/L (26-192); Estimated CRCL calculation 102 ml/min; Estimated Glomerular Filt Rate > 60; Glucose 88 mg/dL (70-99); Osmolality Calculated 285 mOsm/kg (285-295); Potassium 3.6 mmol/L (3.5-5.1); Sodium 139 mmol/L (136-145); Total Protein 7.4 g/dL (6.4-8.2)
[2023-03-09 17:57] LABS: Troponin I < 4.0 ng/L (0.00-60.4)
== END 2023-03-09 18:06 | disposition home or self-care (01) ==
PROVIDERS: Emergency Provider Internal Medicine Critical Care Medicine; PCP Family Medicine
DX: R07.89 Other chest pain (principal); Z87.891 Personal history of nicotine dependence
CPT/HCPCS: 36415; 80053; 82550; 84484; 85025; 93005; 99284

== ENCOUNTER 2023-04-06 17:50 | Emergency (ER) | payer BC, SELFPAY ==
[2023-04-06] VITALS (13 sets, daily range): BP systolic 98–116; BP diastolic 68–91; PULSE 83–88; RESP 16–20; TEMP 36.4–36.8; O2SAT 97–100
--- NOTE | 2023-04-06 18:00 | ED.ANXIETY ---
HPI - Anxiety General Chief Complaint: Anxiety Stated Complaint: chest pain/ dizzy/ numbness Time Seen by Provider: 04/06/23 18:00 Source: patient Mode of arrival: ambulatory Limitations: no limitations History of Present Illness HPI narrative: 27-year-old female with a history of anxiety / depression, fibromyalgia, SVT status post ablation in May of 2022, recurrent chest pain and dizziness took herbal medicine for anxiety last night and developed -- numbness and tingling of her extremities -- dizziness. this has no relation to posterior. -- Chest pain which is sharp and intermittent. No relation to exercise. The symptoms started this morning. No fever or chills no shortness of breath no nausea/vomiting /abdominal pain /diarrhea. Onset (ago): hour(s) ( started 12 hours ago) Symptoms: chest pain and extremity numbness/tingling Severity: mild Quality: intermittent History of similar episodes: Yes Provoking factors: other ( Took herbal medicine last night.) Relieving factors: nothing Exacerbating factors: nothing Associated symptoms: chest pain and weakness Related Data Home Medications Medication Instructions Recorded Confirmed norethindrone 1 mg-ethinyl 1 tablet PO DAILY 07/02/20 04/06/23 estradiol 10 mcg (24)-iron 10 mcg(2) tablet (Lo Loestrin Fe) Allergies Allergy/AdvReac Type Severity Reaction Status Date / Time Sulfa (Sulfonamide Allergy Mild RASH Verified 04/06/23 17:56 Antibiotics) diltiazem Allergy Rash Verified 04/06/23 17:56 metoprolol Allergy Rash Verified 04/06/23 17:56 fluoxetine [From Prozac] AdvReac Intermediate Unknown Verified 04/06/23 17:56 Review of Systems Review of Systems: All systems reviewed & are unremarkable except as noted in HPI and below Constitutional: Constitutional: Reports as per HPI Eyes: Eyes: Reports as per HPI and Reports no additional eye complaints ENT: Reports system reviewed and no additional complaints, except as documented and Reports as per HPI Cardiovascular: Cardiovascular: Reports as per HPI, Reports no additional cardiovascular complaints and Reports chest pain Respiratory: Respiratory: Reports as per HPI and Reports no additional respiratory complaints Gastrointestinal: Gastrointestinal: Reports as per HPI and Reports no additional gastrointestinal complaints Genitourinary: Genitourinary: Reports no additional female genitourinary complaints and Reports as per HPI Musculoskeletal: Musculoskeletal: Reports no additional musculoskeletal complaints and Reports as per HPI Integumentary/Breasts: Skin/Breast: Reports system reviewed and no additional complaints, except as docu and Reports as per HPI Neurologic: Reports system reviewed and no additional complaints, except as documented, Reports as per HPI and Reports numbness Psychiatric: Psychiatric: Reports no additional psychiatric complaints, Reports as per HPI and Reports anxiety Endocrine: Endocrine: Reports no additional endocrine complaints and Reports as per HPI Hematologic/Lymphatic: Hematologic/Lymphatic: Reports no additional hematologic/lymphatic complaints and Reports as per HPI Allergic/Immunologic: Allergic/Immunologic: Reports no additional allergic/immunologic complaints and Reports as per HPI [facility] Past Medical History Medical History (Updated 04/06/23 @ 19:02 by Boo Roland MD) Allergic MARION positive BMI 22.0-22.9, adult BMI 23.0-23.9, adult BMI 24.0-24.9, adult BMI 25.0-25.9,adult Depression Fibromyalgia Lordosis of cervicothoracic region Neck pain PSVT (paroxysmal supraventricular tachycardia) SVT (supraventricular tachycardia) Tachyarrhythmia Tobacco abuse Surgical History Surgical History (Updated 03/09/23 @ 16:16 by Boo Roland MD) S/P ablation operation for arrhythmia [place] teeth extracted Family History Family History Father Tongue cancer COVID-19 Mother Cardiac abnormal
--- NOTE | 2023-04-06 18:07 | ECG_ITS ---
Measurements Intervals [place] Rate: 78 P: 46 OR: 102 QRS: 42 QRSD: 82 T: 54 QT: 353 QTc: 402 Interpretive Statements SINUS RHYTHM WITH SHORT [place] INTERVAL BORDERLINE ECG COMPARED TO ECG 03/09/2023 15:56:03 NO SIGNIFICANT CHANGES Electronically Signed On 04-07-2023 7:59:12 W[employer]DER [employer] by Tee Cortez D.O.
[2023-04-06 18:19] LABS: Basophils Absolute Auto 0.03 K/mm3 (0.00-0.10); Basophils Percent Auto 0.6 % (0.0-1.0); Eosinophils Absolute Auto 0.06 K/mm3 (0.02-0.50); Eosinophils Percent Auto 1.3 % (1.0-6.0); Hemoglobin 13.9 g/dL (12.0-15.0); Immature Granulocyte Absolute 0.01 K/mm3 (0.00-0.00); Immature Granulocyte Percent A 0.2 % (0.0-0.0); Lymphocytes Absolute Auto 1.43 K/mm3 (1.10-4.50); Lymphocytes Percent Auto 30.3 % (18.0-42.0); Mean Corpuscular HGB Conc 33.1 g/dL (32.0-36.0); Mean Corpuscular Hemoglobin 28.9 pg (27.0-31.0); Mean Corpuscular Volume 87.3 fL (78.0-102.0); Mean Platelet Volume 9.5 fl (9.2-11.8); Monocytes Percent Auto 10.6 % (2.0-11.0); Neutrophils Absolute Auto 2.7 K/mm3 (1.7-7.2); Platelet Count Result 271 K/mm3 (150-420); Red Blood Count 4.81 M/mm3 (4.20-5.40); White Blood Count 4.7 K/mm3 (4.8-10.8)
[2023-04-06 18:39] LABS: Alanine Aminotransferase 13 U/L (14-59); Albumin Level 3.5 g/dL (3.4-5.0); Alkaline Phosphatase 87 U/L (46-116); Anion Gap 9 mmol/L (8-16); Aspartate Amino Transferase < 10 U/L (15-37); Bilirubin,Total 0.5 mg/dL (0.00-1.00); Blood Urea Nitrogen 11 mg/dL (7-18); Calcium 9.2 mg/dL (8.5-10.1); Carbon Dioxide 27 mmol/L (21-32); Chloride 101 mmol/L (98-108); Estimated Glomerular Filt Rate > 60; Glucose 94 mg/dL (70-99); Osmolality Calculated 283 mOsm/kg (285-295); Potassium 4.1 mmol/L (3.5-5.1); Sodium 137 mmol/L (136-145); Total Protein 7.2 g/dL (6.4-8.2)
[2023-04-06 18:41] LABS: Troponin I < 4.0 ng/L (0.00-60.4)
--- NOTE | 2023-04-06 19:04 | PC.NURSE ---
PT IS TO BE DC HOME, ERP AT BEDSIDE. NAD NOTED DURING ED VISIT.
== END 2023-04-06 19:22 | disposition home or self-care (01) ==
PROVIDERS: Emergency Provider Internal Medicine Critical Care Medicine; PCP Family Medicine
DX: F41.9 Anxiety disorder, unspecified (principal); R07.1 Chest pain on breathing; Z87.891 Personal history of nicotine dependence
CPT/HCPCS: 36415; 80053; 84484; 85025; 93005; 99284

== ENCOUNTER 2023-06-13 14:24 | Emergency (ER) | payer MEDICARE, BC, SELFPAY ==
--- NOTE | ~2023-06-13 | XR_ITS ---
EXAMINATION: XR chest 1V portable INDICATION: Chest pain TECHNIQUE: Portable AP chest at 1603 hours COMPARISON: 07/21/2022 FINDINGS: The lungs are free of acute opacities. No pleural effusion or pneumothorax. The cardiomedia stinal silhouette is normal. IMPRESSION: 1. No acute cardiopulmonary abnormality. Reviewed, dictated and finalized at location F. ULAR STUFFER
[2023-06-13 14:34] VITALS: BP 123/79; PULSE 91; RESP 20; TEMP 37.5; O2SAT 97
--- NOTE | 2023-06-13 14:34 | ECG_ITS ---
Measurements Intervals [place] Rate: 76 P: 53 [place]: 104 QRS: 66 QRSD: 88 T: 64 QT: 358 QTc: 403 Interpretive Statements SINUS RHYTHM WITH SHORT [place] INTERVAL MINIMAL Q WAVES- INF/LAT LEADS BASELINE WANDER- AVR, AVL BORDERLINE ECG COMPARED TO ECG 04/06/2023 18:19:07 NO SIGNIFICANT CHANGES Electronically Signed On 06-13-2023 14:51:51 ECHO TECHNICIAN by Tee Cortez D.O.
[2023-06-13 14:39] VITALS: O2SAT 97
--- NOTE | 2023-06-13 14:45 | ED.CHESTPAIN ---
HPI - Chest Pain General Chief Complaint: Chest Pain Stated Complaint: chest pain Source: patient Mode of arrival: ambulatory Limitations: no limitations History of Present Illness HPI narrative: 27-year-old female with a history of anxiety /depression, fibromyalgia, appy SVT status post ablation in May of 2022, recurrent chest pain and dizziness presents to the ER with a 2 day history of -- left scapular / interscapular pain -- anterior chest pain which is present over the sternum, left chest and left axilla which is made worse by exertion -- the patient has nausea without any vomiting. No shortness of breath or lightheadedness MD complaint: chest pain Onset (ago): day(s) ( 2 days) Timing of current episode: episodic Prior episodes: Yes Onset: during rest Pain location: substernal and left chest Pain radiation: left shoulder Pain scale (0-10): 3 Quality: aching Relieving factors: nothing Exacerbating factors: nothing Associated symptoms: nausea Treatment prior to arrival: none Risk Factors Thoracic aortic dissection risk factors: none Related Data On Oral Contraceptives: No Home Medications Medication Instructions Recorded Confirmed norethindrone 1 mg-ethinyl 1 tablet PO DAILY 07/02/20 04/06/23 estradiol 10 mcg (24)-iron 10 mcg(2) tablet (Lo Loestrin Fe) Allergies Allergy/AdvReac Type Severity Reaction Status Date / Time Sulfa (Sulfonamide Allergy Mild RASH Verified 04/06/23 17:56 Antibiotics) diltiazem Allergy Rash Verified 04/06/23 17:56 metoprolol Allergy Rash Verified 04/06/23 17:56 fluoxetine [From Prozac] AdvReac Intermediate Unknown Verified 04/06/23 17:56 Review of Systems Review of Systems: All systems reviewed & are unremarkable except as noted in HPI and below Constitutional: Constitutional: Reports as per HPI and Reports no additional constitutional complaints Eyes: Eyes: Reports as per HPI and Reports no additional eye complaints ENT: Reports system reviewed and no additional complaints, except as documented and Reports as per HPI Cardiovascular: Cardiovascular: Reports as per HPI, Reports no additional cardiovascular complaints and Reports chest pain Respiratory: Respiratory: Reports as per HPI and Reports no additional respiratory complaints Gastrointestinal: Gastrointestinal: Reports as per HPI and Reports no additional gastrointestinal complaints Genitourinary: Genitourinary: Reports no additional female genitourinary complaints and Reports as per HPI Musculoskeletal: Musculoskeletal: Reports no additional musculoskeletal complaints and Reports as per HPI Integumentary/Breasts: Skin/Breast: Reports system reviewed and no additional complaints, except as docu and Reports as per HPI Neurologic: Reports system reviewed and no additional complaints, except as documented and Reports as per HPI Psychiatric: Psychiatric: Reports no additional psychiatric complaints and Reports as per HPI Endocrine: Endocrine: Reports no additional endocrine complaints and Reports as per HPI Hematologic/Lymphatic: Hematologic/Lymphatic: Reports no additional hematologic/lymphatic complaints and Reports as per HPI Allergic/Immunologic: Allergic/Immunologic: Reports no additional allergic/immunologic complaints and Reports as per HPI [facility] Past Medical History Medical History Allergic MARION positive BMI 22.0-22.9, adult BMI 23.0-23.9, adult BMI 24.0-24.9, adult BMI 25.0-25.9,adult Depression Fibromyalgia Lordosis of cervicothoracic region Neck pain PSVT (paroxysmal supraventricular tachycardia) SVT (supraventricular tachycardia) Tachyarrhythmia Tobacco abuse Surgical History Surgical History S/P ablation operation for arrhythmia [place] teeth extracted Family History Family History Father Tongue cancer COVID-19 Mo
[2023-06-13 15:29] LABS: Pregnancy On Board Control Positive; Urine Pregnancy Test Negative
[2023-06-13 15:39] LABS: D Dimer 0.19 mg/L (0.19-0.50)
[2023-06-13 15:45] VITALS: BP 118/80; PULSE 82; RESP 20; O2SAT 98
[2023-06-13 15:52] LABS: Albumin Level 4.1 g/dL (3.4-5.0); Alkaline Phosphatase 83 U/L (46-116); Anion Gap 11 mmol/L (8-16); Aspartate Amino Transferase 15 U/L (15-37); Bilirubin,Total 0.7 mg/dL (0.00-1.00); Blood Urea Nitrogen 9 mg/dL (7-18); Calcium 8.6 mg/dL (8.5-10.1); Carbon Dioxide 26 mmol/L (21-32); Chloride 99 mmol/L (98-108); Estimated CRCL calculation 108 ml/min; Estimated Glomerular Filt Rate > 60; Glucose 83 mg/dL (70-99); Osmolality Calculated 279 mOsm/kg (285-295); Potassium 3.6 mmol/L (3.5-5.1); Sodium 136 mmol/L (136-145); Total Protein 7.6 g/dL (6.4-8.2)
[2023-06-13 16:04] LABS: Basophils Absolute Auto 0.04 K/mm3 (0.00-0.10); Basophils Percent Auto 0.7 % (0.0-1.0); Eosinophils Absolute Auto 0.05 K/mm3 (0.02-0.50); Eosinophils Percent Auto 0.9 % (1.0-6.0); Hematocrit 42.5 % (35.0-49.0); Hemoglobin 14.3 g/dL (12.0-15.0); Immature Granulocyte Absolute 0.03 K/mm3 (0.00-0.00); Immature Granulocyte Percent A 0.5 % (0.0-0.0); Lymphocytes Absolute Auto 1.67 K/mm3 (1.10-4.50); Lymphocytes Percent Auto 28.9 % (18.0-42.0); Mean Corpuscular HGB Conc 33.6 g/dL (32.0-36.0); Mean Corpuscular Hemoglobin 29.1 pg (27.0-31.0); Mean Corpuscular Volume 86.6 fL (78.0-102.0); Mean Platelet Volume 10.2 fl (9.2-11.8); Monocytes Absolute Auto 0.47 K/mm3 (0.10-0.90); Monocytes Percent Auto 8.1 % (2.0-11.0); Neutrophils Absolute Auto 3.5 K/mm3 (1.7-7.2); Neutrophils Percent Auto 60.9 % (50.0-70.0); Platelet Count Result 247 K/mm3 (150-420); Red Blood Count 4.91 M/mm3 (4.20-5.40); Red Cell Distribution Width 12.6 % (11.6-14.4); White Blood Count 5.8 K/mm3 (4.8-10.8)
[2023-06-13 16:10] LABS: Alanine Aminotransferase 16 U/L (14-59)
[2023-06-13 16:11] LABS: Troponin I 5.3 ng/L (0.00-60.4)
[2023-06-13 17:07] VITALS: BP 112/85; PULSE 86; RESP 20; TEMP 36.7; O2SAT 98
== END 2023-06-13 17:11 | disposition home or self-care (01) ==
PROVIDERS: Emergency Provider Internal Medicine Critical Care Medicine; PCP Family Medicine
DX: R07.89 Other chest pain (principal); F41.9 Anxiety disorder, unspecified; F32.A Depression, unspecified; Z87.891 Personal history of nicotine dependence
CPT/HCPCS: 36415; 71045; 80053; 81025; 84484; 85025; 85380; 93005; 99284

== ENCOUNTER 2023-07-19 19:05 | Emergency (ER) | payer BC, MEDICARE, SELFPAY ==
--- NOTE | 2023-07-19 19:08 | ECG_ITS ---
Measurements Intervals [place] Rate: 80 P: 42 [place]: 114 QRS: 47 QRSD: 87 T: 52 QT: 363 QTc: 419 Interpretive Statements SINUS RHYTHM WITH SINUS ARRHYTHMIA WITH SHORT [place] INTERVAL COMPARED TO ECG 06/13/2023 14:42:37 SINUS ARRHYTHMIA NOW PRESENT Electronically Signed On 07-20-2023 15:54:44 BUTTERMAKER by Sherry Galeana M.D.
--- NOTE | 2023-07-19 19:09 | ED.GENADULT ---
HPI - General Adult General Chief complaint: Unspecified Stated complaint: ALLERGIC REACTION Time Seen by Provider: 07/19/23 19:08 History of Present Illness HPI narrative: Annita is a 27F with a PMH of PSVT s/p ablation, and GERD that presented to the ED via EMS after an adverse reaction. She took a dietary supplement then started to have palpitations, get the spins and having tingling in her fingertips. There was no chest pain, throat or tongue swelling or syncope. Related Data Home Medications Medication Instructions Recorded Confirmed norethindrone 1 mg-ethinyl 1 tablet PO DAILY 07/02/20 07/19/23 estradiol 10 mcg (24)-iron 10 mcg(2) tablet (Lo Loestrin Fe) Allergies Allergy/AdvReac Type Severity Reaction Status Date / Time Sulfa (Sulfonamide Allergy Mild RASH Verified 07/13/23 14:41 Antibiotics) diltiazem Allergy Rash Verified 07/13/23 14:41 metoprolol Allergy Rash Verified 07/13/23 14:41 fluoxetine [From Prozac] AdvReac Intermediate Unknown Verified 07/13/23 14:41 omeprazole AdvReac Unknown Verified 07/19/23 19:12 zypam AdvReac Palpitation Uncoded 07/19/23 20:45 s Review of Systems Review of Systems: All systems reviewed & are unremarkable except as noted in HPI and below PMFSH Past Medical History Medical History Allergic MARION positive BMI 22.0-22.9, adult BMI 23.0-23.9, adult BMI 24.0-24.9, adult BMI 25.0-25.9,adult Depression Fibromyalgia Lordosis of cervicothoracic region Neck pain PSVT (paroxysmal supraventricular tachycardia) SVT (supraventricular tachycardia) Tachyarrhythmia Tobacco abuse Surgical History Surgical History S/P ablation operation for arrhythmia [place] teeth extracted Family History Family History Father Tongue cancer COVID-19 Mother Cardiac abnormality Grandparent COPD (chronic obstructive pulmonary disease) Sibling COVID-19 Social History Social History (Updated 07/13/23 @ 14:45 by Tiana Peres [facility]) Years smoked: 10 Smoking status: Former smoker Tobacco type: cigarettes Second hand tobacco smoke exposure: No Alcohol intake: never Substance use: former Substance use type: other Do You Feel Safe in your Home?: Yes Lack of Transportation: No Lack of Food: Never True Current Housing: I Have Housing Concerned About Future Housing: No Difficulty Paying Gas/Electric Bills: No Difficulty Paying for Meds: No Currently Unemployed: No Education: High School Diploma/GED Difficulty w/ Childcare or Family Care: No Living arrangements: with family Occupation/Education: unemployed Additional occupation/education comments: [employer] Gender identity (if verbalized by the patient): Female Spiritual care concerns: No Exam Const: General: cooperative, healthy appearing, comfortable, no acute distress, well developed, alert, awake and Physically active Orientation/consciousness: oriented to person, oriented to place and oriented to time HENMT: Head: normal to inspection, normocephalic and atraumatic Ears: hearing grossly normal bilaterally and external ears normal Face/Nose/Sinus: Normal external nose present Eyes: General: appearance normal, both eyes and all related structures Periorbital: periorbital findings normal Sclera: sclerae normal Pupils: Equal, round and reactive pupils present Neck: Neck: normal visual inspection Chest: Chest palpation & inspection: normal inspection of the chest Resp: Effort & Inspection: normal respiratory effort, able to speak in complete sentences and no respiratory distress Auscultation: clear to auscultation bilaterally Cardio: Jugular venous distension: no JVD Rate: regular rate Rhythm: regular rhythm GI: Inspection: normal to inspection GI Palp: Yes Soft to palp
[2023-07-19 19:10] VITALS: BP 123/79; PULSE 93; RESP 16; TEMP 36.7; O2SAT 99
[2023-07-19 19:19] LABS: Basophils Absolute Auto 0.03 K/mm3 (0.00-0.10); Basophils Percent Auto 0.7 % (0.0-1.0); Eosinophils Absolute Auto 0.06 K/mm3 (0.02-0.50); Eosinophils Percent Auto 1.3 % (1.0-6.0); Hematocrit 40.1 % (35.0-49.0); Hemoglobin 13.8 g/dL (12.0-15.0); Immature Granulocyte Absolute 0.01 K/mm3 (0.00-0.00); Immature Granulocyte Percent A 0.2 % (0.0-0.0); Lymphocytes Absolute Auto 1.48 K/mm3 (1.10-4.50); Lymphocytes Percent Auto 32.2 % (18.0-42.0); Mean Corpuscular HGB Conc 34.4 g/dL (32.0-36.0); Mean Corpuscular Hemoglobin 29.7 pg (27.0-31.0); Mean Corpuscular Volume 86.4 fL (78.0-102.0); Mean Platelet Volume 9.4 fl (9.2-11.8); Monocytes Absolute Auto 0.39 K/mm3 (0.10-0.90); Monocytes Percent Auto 8.5 % (2.0-11.0); Neutrophils Absolute Auto 2.6 K/mm3 (1.7-7.2); Neutrophils Percent Auto 57.1 % (50.0-70.0); Platelet Count Result 227 K/mm3 (150-420); Red Blood Count 4.64 M/mm3 (4.20-5.40); Red Cell Distribution Width 12.2 % (11.6-14.4); White Blood Count 4.6 K/mm3 (4.8-10.8)
--- NOTE | 2023-07-19 19:32 | PC.NURSE ---
Pt offered medication for OBREGON/dizziness which she politely declines at this time.
[2023-07-19 19:35] LABS: Alanine Aminotransferase 12 U/L (14-59); Albumin Level 3.9 g/dL (3.4-5.0); Alkaline Phosphatase 75 U/L (46-116); Anion Gap 9 mmol/L (8-16); Aspartate Amino Transferase 12 U/L (15-37); Bilirubin,Total 0.5 mg/dL (0.00-1.00); Blood Urea Nitrogen 7 mg/dL (7-18); Calcium 8.5 mg/dL (8.5-10.1); Carbon Dioxide 27 mmol/L (21-32); Chloride 102 mmol/L (98-108); Estimated CRCL calculation 108 ml/min; Estimated Glomerular Filt Rate > 60; Glucose 88 mg/dL (70-99); Magnesium 2.1 mg/dL (1.8-2.4); Osmolality Calculated 283 mOsm/kg (285-295); Potassium 3.6 mmol/L (3.5-5.1); Sodium 138 mmol/L (136-145); Total Protein 7.6 g/dL (6.4-8.2)
--- NOTE | 2023-07-19 20:12 | PC.NURSE ---
At time of discharge, pt states that [facility] told her that they would be able to transport her home after she gets discharged, otherwise she would have no way of getting home for several hours. [facility] called and states that they are able to transport the patient back home. Pt informed that because she does not qualify for medical necessity EMS transport home, that she is self pay and will be responsible for the bill for transport home. Pt verbalizes understanding and states that she is okay to receive that bill.
== END 2023-07-19 20:43 | disposition home or self-care (01) ==
PROVIDERS: Emergency Provider Family Medicine
DX: F41.0 Panic disorder [episodic paroxysmal anxiety] (principal); Z79.899 Other long term (current) drug therapy; Z87.891 Personal history of nicotine dependence
CPT/HCPCS: 36415; 80053; 83735; 85025; 93005; 99283

== ENCOUNTER 2023-08-02 08:58 | Outpatient (CLI) | payer BC, MEDICARE, SELFPAY ==
--- NOTE | 2023-08-02 09:10 | EST_ITS ---
Patient Info Name: Marti Donnelly Age: 27 years : 1995 Gender: Female Ht: 66 in Wt: 152 lbs BSA: 1.80 m2 HR: 84 bpm BP: 118 / 77 mmHg Heart Rhythm: Sinus Rhythm Exam Date: 08/02/2023 9:25 AM Exam Location: Echo Lab Patient Status: Outpatient Admit Date: 08/02/2023 Staff Ordering Physician: Tee Cortez DO Attending Provider: Tee Cortez DO Exercise Technologist: Nat Yancey CT Exercise Physician: Tee Cortez DO Exam Type: CA stress test treadmill Study Info Indications R07.89 - Other chest pain A treadmill exercise stress test was performed. Summary 1. 1. Negative [place] exercise stress test for ischemic ST changes by ECG criteria. 2. 2. Reduced functional capacity, achieving 9.8 METs of workload. 3. 3. Rapid HR response to exercise. 4. 4. Appropriate HR recovery at 1 minute post exercise. 5. 5. No imaging with stress testing. 6. 6. Patient informed of the above results. Protocol: [place] Stress ECG Details Stage: REST Duration (min): 0 min : 53 sec Speed (mph): 0.0 Grade (%): 0 HR (bpm): 89 SBP (mmHg): 118 DBP (mmHg): 77 METS: --- Stage: REST Duration (min): 6 min : 2 sec Speed (mph): 0.0 Grade (%): 0 HR (bpm): 100 SBP (mmHg): 118 DBP (mmHg): 77 METS: --- Stage: STAGE 1 Duration (min): 1 min : 0 sec Speed (mph): 1.7 Grade (%): 10 HR (bpm): 129 SBP (mmHg): 118 DBP (mmHg): 77 METS: --- Stage: STAGE 1 Duration (min): 2 min : 0 sec Speed (mph): 1.7 Grade (%): 10 HR (bpm): 136 SBP (mmHg): 118 DBP (mmHg): 77 METS: --- Stage: STAGE 1 Duration (min): 3 min : 0 sec Speed (mph): 1.7 Grade (%): 10 HR (bpm): 138 SBP (mmHg): 129 DBP (mmHg): 76 METS: --- Stage: STAGE 2 Duration (min): 1 min : 0 sec Speed (mph): 2.5 Grade (%): 12 HR (bpm): 143 SBP (mmHg): 129 DBP (mmHg): 76 METS: --- Stage: STAGE 2 Duration (min): 2 min : 0 sec Speed (mph): 2.5 Grade (%): 12 HR (bpm): 157 SBP (mmHg): 148 DBP (mmHg): 76 METS: --- Stage: STAGE 2 Duration (min): 3 min : 0 sec Speed (mph): 2.5 Grade (%): 12 HR (bpm): 166 SBP (mmHg): 148 DBP (mmHg): 76 METS: --- Stage: STAGE 3 Duration (min): 1 min : 0 sec Speed (mph): 3.4 Grade (%): 14 HR (bpm): 177 SBP (mmHg): 174 DBP (mmHg): 74 METS: --- Stage: STAGE 3 Duration (min): 1 min : 30 sec Speed (mph): 3.4 Grade (%): 14 HR (bpm): 179 SBP (mmHg): 174 DBP (mmHg): 74 METS: --- Stage: RECOVERY Duration (min): 0 min : 29 sec Speed (mph): 0.0 Grade (%): 0 HR (bpm): 165 SBP (mmHg): 174 DBP (mmHg): 74 METS: --- Stage: RECOVERY Duration (min): 1 min : 29 sec Speed (mph): 0.0 Grade (%): 0 HR (bpm): 133 SBP (mmHg): 174 DBP (mmHg): 74 METS: --- Stage: RECOVERY Duration (min): 2 min : 29 sec Speed (mph): 0.0 Grade (%): 0 HR (bpm): 118 SBP (mmHg): 174 DBP (mmHg): 74 METS:
== END 2023-08-02 08:59 | disposition home or self-care (01) ==
PROVIDERS: Visit Provider Internal Medicine Cardiovascular Disease
DX: R07.9 Chest pain, unspecified (principal)
CPT/HCPCS: 93017

== ENCOUNTER 2023-11-16 10:33 | Emergency (ER) | payer MEDICARE, MEDICAID, SELFPAY ==
[2023-11-16 10:33] VITALS: BP 114/74; PULSE 80; RESP 18; TEMP 36.6; O2SAT 98
--- NOTE | 2023-11-16 10:48 | ED.ABDPAIN ---
HPI - Abdominal Pain General Chief Complaint: Abdominal Pain Stated Complaint: right side abdominal pain Time Seen by Provider: 11/16/23 10:39 Source: patient Mode of arrival: ambulatory Limitations: no limitations History of Present Illness HPI narrative: 28-year-old female, smoker with a history of SVT status post ablation in 2022, depression, fibromyalgia presents to the ER with 2 week history of -- right flank pain which is continuous with intermittent exacerbations. Pain is rated as 5/10. Patient has nausea without any vomiting. No diarrhea. No fever or chills. No radiation of the pain. MD elicited complaint: flank pain Pertinent past history: none Onset (ago): week(s) ( Two weeks) Pain Consistency: constant Location: R flank Severity: moderate Pain scale (0-10): 5 Radiation: none Exacerbating factors: nothing Relieving factors: nothing Related Data Home Medications Medication Instructions Recorded Confirmed norethindrone 1 mg-ethinyl 1 tablet PO DAILY 07/02/20 11/16/23 estradiol 10 mcg (24)-iron 10 mcg(2) tablet (Lo Loestrin Fe) Allergies Allergy/AdvReac Type Severity Reaction Status Date / Time Sulfa (Sulfonamide Allergy Mild RASH Verified 11/16/23 10:39 Antibiotics) diltiazem Allergy Rash Verified 11/16/23 10:39 metoprolol Allergy Rash Verified 11/16/23 10:39 fluoxetine [From Prozac] AdvReac Intermediate Unknown Verified 11/16/23 10:39 omeprazole AdvReac Unknown Verified 11/16/23 10:39 zypam AdvReac Palpitation Uncoded 11/16/23 10:39 s Review of Systems Review of Systems: All systems reviewed & are unremarkable except as noted in HPI and below Constitutional: Constitutional: Reports as per HPI and Reports no additional constitutional complaints Eyes: Eyes: Reports as per HPI and Reports no additional eye complaints ENT: Reports system reviewed and no additional complaints, except as documented and Reports as per HPI Cardiovascular: Cardiovascular: Reports as per HPI and Reports no additional cardiovascular complaints Respiratory: Respiratory: Reports as per HPI and Reports no additional respiratory complaints Gastrointestinal: Gastrointestinal: Reports as per HPI, Reports no additional gastrointestinal complaints and Reports nausea Genitourinary: Genitourinary: Reports no additional female genitourinary complaints and Reports as per HPI Musculoskeletal: Musculoskeletal: Reports no additional musculoskeletal complaints and Reports as per HPI Integumentary/Breasts: Skin/Breast: Reports system reviewed and no additional complaints, except as docu and Reports as per HPI Neurologic: Reports system reviewed and no additional complaints, except as documented and Reports as per HPI Psychiatric: Psychiatric: Reports no additional psychiatric complaints and Reports as per HPI Endocrine: Endocrine: Reports no additional endocrine complaints and Reports as per HPI Hematologic/Lymphatic: Hematologic/Lymphatic: Reports no additional hematologic/lymphatic complaints and Reports as per HPI Allergic/Immunologic: Allergic/Immunologic: Reports no additional allergic/immunologic complaints and Reports as per HPI [facility] Past Medical History Medical History Allergic MARION positive BMI 22.0-22.9, adult BMI 23.0-23.9, adult BMI 24.0-24.9, adult BMI 25.0-25.9,adult Depression Fibromyalgia Lordosis of cervicothoracic region Neck pain PSVT (paroxysmal supraventricular tachycardia) SVT (supraventricular tachycardia) Tachyarrhythmia Tobacco abuse Surgical History Surgical History S/P ablation operation for arrhythmia [place] teeth extracted Family History Family History Father Tongue cancer COVID-19 Mother Cardiac abnormality Grandparent COPD (chronic obstructive pulmonary disease) Sibling COVID-19 Social History
[2023-11-16 11:11] LABS: Appearance Urine Clear (Clear); Bilirubin Urine Negative (Negative); Blood Urine Negative (Negative); Color Urine Light Yellow (Yellow); Glucose Urine UA Negative (Negative); Hematocrit 41.6 % (35.0-49.0); Hemoglobin 14.2 g/dL (12.0-15.0); Ketones Urine Negative (Negative); Leukocyte Esterase Ur Negative LEU/UL (Negative); Mean Corpuscular HGB Conc 34.1 g/dL (32-36); Mean Corpuscular Hemoglobin 30.3 pg (27.0-31.0); Mean Corpuscular Volume 88.9 fL (78.0-102.0); Mean Platelet Volume 9.6 fl (9.2-11.8); Nitrate Urine Negative (Negative); Platelet Count Result 231 K/mm3 (150-420); Protein Urine Negative (Negative); Red Blood Count 4.68 M/mm3 (4.20-5.40); Red Cell Distribution Width 12.2 % (11.6-14.4); Specific Grav Ur <= 1.005 (1.010-1.020); Urobilinogen Urine 0.2 mg/dL (0.2-1.0); White Blood Count 3.4 K/mm3 (4.8-10.8)
[2023-11-16 11:14] LABS: Add Urine Microscopic? NO; Pregnancy On Board Control Positive; Urine Pregnancy Test Negative
--- NOTE | 2023-11-16 11:23 | PC.NURSE ---
PT IS SITTING ON STRETCHER IN EXAM ROOM AWAITING RESULTS AT THIS TIME. PT DENIES ANY NEEDS OR COMPLAINTS. WILL CONTINUE TO MONITOR.
[2023-11-16 11:25] LABS: Band Neutrophils Percent 0 % (0-6); Eosinophils Percent Manual 3 % (1-6); Lymphocytes Absolute Manual 1.05 K/mm3 (1.1-4.5); Lymphocytes Percent Manual 31 % (18-44); Monocytes Absolute Manual 0.17 K/mm3 (0.1-0.90); Monocytes Percent Manual 5 % (3-9); Neutrophils Absolute Manual 2.07 K/mm3 (1.7-7.2); Neutrophils Percent Manual 61 % (46-73); Platelet Estimate Adequate (Adequate); Total Cells Counted 100
[2023-11-16 11:30] LABS: Lactic Acid Reflex 0.8 mmol/L (0.4-2.0)
[2023-11-16 11:34] LABS: Alanine Aminotransferase 10 U/L (14-59); Albumin Level 3.7 g/dL (3.4-5.0); Alkaline Phosphatase 81 U/L (46-116); Anion Gap 7 mmol/L (4-12); Aspartate Amino Transferase 12 U/L (15-37); Bilirubin,Total 0.6 mg/dL (0.00-1.00); Blood Urea Nitrogen 3 mg/dL (7-18); Calcium 8.9 mg/dL (8.5-10.1); Carbon Dioxide 28 mmol/L (21-32); Chloride 104 mmol/L (98-108); Estimated CRCL calculation 107 ml/min; Estimated Glomerular Filt Rate > 60; Glucose 81 mg/dL (70-99); Osmolality Calculated 283 mOsm/kg (285-295); Potassium 3.8 mmol/L (3.5-5.1); Sodium 139 mmol/L (136-145); Total Protein 7.4 g/dL (6.4-8.2)
[2023-11-16 11:39] LABS: Lipase 28 U/L (16-77)
[2023-11-16 12:05] VITALS: BP 94/73; PULSE 76; RESP 16; O2SAT 98
== END 2023-11-16 12:05 | disposition home or self-care (01) ==
PROVIDERS: Emergency Provider Internal Medicine Critical Care Medicine; PCP Family Medicine
DX: R10.9 Unspecified abdominal pain (principal); Z87.891 Personal history of nicotine dependence
CPT/HCPCS: 36415; 80053; 81003; 81025; 83605; 83690; 85025; 99283

== ENCOUNTER 2023-12-31 04:58 | Emergency (ER) | payer MEDICARE, MEDICAID, SELFPAY ==
--- NOTE | ~2023-12-31 | CT_ITS ---
EXAMINATION: CT abdomen pelvis wo con DATE: 12/31/2023 06:08 INDICATION: Right lower quadrant abdominal pain. TECHNIQUE: Computed tomography (CT) of the abdomen and pelvis was performed without intravenous contr ast. Automated exposure control and iterative reconstruction technique were employed. The dose-length product was 350.37 mGy-cm. COMPARISON: CT abdomen and pelvis 02/02/2023 FINDINGS: The visualized portions of the lung bases demonstrate mild atelectasis. No pleural effusion . The heart size is normal. No pericardial effusion. The liver, gallbladder, spleen, pancreas, adrena l glands, and kidneys are normal. There are no dilated loops of bowel. The appendix is normal. There are no pathologically enlarged lymph nodes. There is no free intraperitoneal fluid. There is a chroni c compression fracture of T12. There is 9 degrees levocurvature of lumbar spine. IMPRESSION: 1. No etiology for the patient's symptoms. Reviewed, dictated and finalized at location A.
--- NOTE | ~2023-12-31 | CT_ITS ---
EXAMINATION: CT brain wo con DATE: 12/31/2023 06:07 INDICATION: Confusion. Left-sided headache. TECHNIQUE: Computed tomography (CT) of the head was performed without intravenous contrast. The mA wa s adjusted according to patient size. Iterative reconstruction technique was employed. The dose-lengt h product was 605.33 mGy-cm. COMPARISON: Head CT 03/25/2022 FINDINGS: There is no intracranial hemorrhage, acute infarction, or abnormal intracranial mass lesion . The ventricles are normal in size. There is mild mucosal thickening in the ethmoid sinuses. The mas toid air cells are normal. The orbits are normal. IMPRESSION: 1. Normal brain. Reviewed, dictated and finalized at location A. IMPRESSION: 1. Normal brain.
[2023-12-31 04:58] VITALS: BP 109/85; PULSE 109; RESP 20; TEMP 36.4; O2SAT 99
--- NOTE | 2023-12-31 05:15 | PC.NURSE ---
LAB AT THE BEDSIDE
[2023-12-31 05:19] LABS: Basophils Absolute Auto 0.02 K/mm3 (0.00-0.10); Basophils Percent Auto 0.3 % (0.0-1.0); Eosinophils Absolute Auto 0.04 K/mm3 (0.02-0.50); Eosinophils Percent Auto 0.7 % (1.0-6.0); Hematocrit 39.8 % (35.0-49.0); Immature Granulocyte Absolute 0.01 K/mm3 (0.00-0.00); Immature Granulocyte Percent A 0.2 % (0.0-0.0); Lymphocytes Absolute Auto 1.33 K/mm3 (1.10-4.50); Lymphocytes Percent Auto 22.6 % (18.0-42.0); Mean Corpuscular HGB Conc 35.2 g/dL (32-36); Mean Corpuscular Hemoglobin 31.1 pg (27.0-31.0); Mean Corpuscular Volume 88.4 fL (78.0-102.0); Mean Platelet Volume 9.6 fl (9.2-11.8); Monocytes Absolute Auto 0.45 K/mm3 (0.10-0.90); Monocytes Percent Auto 7.6 % (2.0-11.0); Neutrophils Absolute Auto 4.04 K/mm3 (1.70-7.20); Neutrophils Percent Auto 68.6 % (50.0-70.0); Platelet Count Result 209 K/mm3 (150-420); Red Cell Distribution Width 12.1 % (11.6-14.4); White Blood Count 5.9 K/mm3 (4.8-10.8)
--- NOTE | 2023-12-31 05:27 | ED.ABDPAIN ---
HPI - Abdominal Pain General Chief Complaint: Abdominal Pain Stated Complaint: ABDOMINAL PAIN Time Seen by Provider: 12/31/23 05:00 Source: patient Mode of arrival: EMS Limitations: no limitations History of Present Illness HPI narrative: Patient is a 28-year-old female with prior recurrent ER visits for multiple concerns here with abdominal pain at this time. She also has some head pressure and some tingling and slight confusion per her history. Patient did not present to the emergency room confused however. She is AAO x4. She is having abdominal pain suprapubic region. 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) Onset (ago): day(s) (1) Pain Consistency: constant Location: suprapubic Severity: mild Pain scale (0-10): 3 Quality: sharp Radiation: suprapubic Migration to: no migration Exacerbating factors: nothing Relieving factors: nothing Context: confirms history of similar episodes Associated symptoms: chills Related Data Allergies Allergy/AdvReac Type Severity Reaction Status Date / Time Sulfa (Sulfonamide Allergy Mild RASH Verified 12/08/23 13:39 Antibiotics) diltiazem Allergy Rash Verified 12/08/23 13:39 metoprolol Allergy Rash Verified 12/08/23 13:39 fluoxetine [From Prozac] AdvReac Intermediate Unknown Verified 12/08/23 13:39 omeprazole AdvReac Unknown Verified 12/08/23 13:39 zypam AdvReac Palpitation Uncoded 12/08/23 13:39 s Review of Systems Review of Systems: All systems reviewed & are unremarkable except as noted in HPI and below Constitutional: Constitutional: Reports no additional constitutional complaints Eyes: Eyes: Reports no additional eye complaints ENT: Reports system reviewed and no additional complaints, except as documented Cardiovascular: Cardiovascular: Reports no additional cardiovascular complaints Respiratory: Respiratory: Reports no additional respiratory complaints Gastrointestinal: Gastrointestinal: Reports no additional gastrointestinal complaints Genitourinary: Genitourinary: Reports no additional female genitourinary complaints Musculoskeletal: Musculoskeletal: Reports no additional musculoskeletal complaints Integumentary/Breasts: Skin/Breast: Reports system reviewed and no additional complaints, except as docu Neurologic: Reports system reviewed and no additional complaints, except as documented Psychiatric: Psychiatric: Reports no additional psychiatric complaints Endocrine: Endocrine: Reports no additional endocrine complaints Hematologic/Lymphatic: Hematologic/Lymphatic: Reports no additional hematologic/lymphatic complaints Allergic/Immunologic: Allergic/Immunologic: Reports no additional allergic/immunologic complaints PMFSH Past Medical History Medical History Allergic MARION positive BMI 22.0-22.9, adult BMI 23.0-23.9, adult BMI 24.0-24.9, adult BMI 25.0-25.9,adult Depression Fibromyalgia Lordosis of cervicothoracic region Neck pain PSVT (paroxysmal supraventricular tachycardia) SVT (supraventricular tachycardia) Tachyarrhythmia Tobacco abuse Surgical History Surgical History S/P ablation operation for arrhythmia [place] teeth extracted Family History Family History Father Tongue cancer COVID-19 Mother Cardiac abnormality Grandparent COPD (chronic obstructive pulmonary disease) Sibling COVID-19 Social History Social History Years smoked: 10 Smoking status: Former smoker Tobacco type: cigarettes Second hand tobacco smoke exposure: No Alcohol intake: never Substance use: current Substance use type: marijuana Do You Feel Safe in your Home?: Yes Lack of Transportation: No Lack of Food: Never True Curre
[2023-12-31 05:30] LABS: Lipase 31 U/L (16-77)
[2023-12-31 05:33] LABS: Alkaline Phosphatase 83 U/L (46-116); Anion Gap 10 mmol/L (4-12); Aspartate Amino Transferase 12 U/L (15-37); Bilirubin,Total 0.5 mg/dL (0.00-1.00); Blood Urea Nitrogen 8 mg/dL (7-18); Calcium 8.2 mg/dL (8.5-10.1); Carbon Dioxide 25 mmol/L (21-32); Chloride 105 mmol/L (98-108); Estimated CRCL calculation 80 ml/min; Estimated Glomerular Filt Rate > 60; Glucose 101 mg/dL (70-99); Osmolality Calculated 288 mOsm/kg (285-295); Potassium 3.7 mmol/L (3.5-5.1); Sodium 140 mmol/L (136-145); Total Protein 7.2 g/dL (6.4-8.2)
--- NOTE | 2023-12-31 05:38 | PC.NURSE ---
PATIENT GOT UP AND AMBULATED TO THE BATHROOM TO GIVE URINE SAMPLE. STEADY GAIT.
[2023-12-31 05:43] LABS: Alanine Aminotransferase 10 U/L (14-59); Albumin Level 3.7 g/dL (3.4-5.0)
--- NOTE | 2023-12-31 05:43 | PC.NURSE ---
PATIENT AMBULATED BACK TO ROOM WITH STEADY GAIT. URINE TAKEN DOWN TO LAB
[2023-12-31 05:45] LABS: Add Urine Microscopic? NO; Appearance Urine Clear (Clear); Bilirubin Urine Negative (Negative); Blood Urine Negative (Negative); Color Urine Yellow (Yellow); Glucose Urine UA Negative (Negative); Ketones Urine Negative (Negative); Leukocyte Esterase Ur Negative LEU/UL (Negative); Nitrate Urine Negative (Negative); Protein Urine Negative (Negative); Specific Grav Ur 1.025 (1.010-1.020); Urobilinogen Urine 0.2 mg/dL (0.2-1.0)
[2023-12-31 05:48] LABS: Pregnancy On Board Control Positive; Urine Pregnancy Test Negative
--- NOTE | 2023-12-31 05:52 | PC.NURSE ---
PATIENT TRANSPORTED TO RADIOLOGY VIA STRETCHER
--- NOTE | 2023-12-31 06:03 | PC.NURSE ---
PATIENT RETURNED TO ROOM VIA STRETCHER. CALL LIGHT IN REACH
[2023-12-31 06:26] VITALS: BP 110/82; PULSE 90; RESP 18; O2SAT 100
== END 2023-12-31 06:26 | disposition home or self-care (01) ==
PROVIDERS: Emergency Provider Emergency Medicine; PCP Family Medicine
DX: R10.9 Unspecified abdominal pain (principal); Z87.891 Personal history of nicotine dependence
CPT/HCPCS: 36415; 70450; 74176; 80053; 81003; 81025; 83690; 85025; 99284

== ENCOUNTER 2024-02-17 09:25 | Outpatient (CLI) | payer MEDICARE, MEDICAID, SELFPAY ==
[2024-02-17 11:32] LABS: Iron 119 ug/dL (37-170)
[2024-02-17 11:41] LABS: COMPLEMENT C4 32.2 mg/dL (14.0-44.0)
[2024-02-17 11:49] LABS: Percent Iron Saturation 28 % (20-50); TOTAL IRON BINDING CAPACITY 426 ug/dL (261-462)
[2024-02-17 11:52] LABS: Free T4 Free Thyroxine 0.85 ng/mL (0.78-2.19)
[2024-02-17 12:48] LABS: Vitamin D 25 Hydroxy 43.8 ng/mL
[2024-02-18 07:39] LABS: Myeloperoxidase Antibody <1.0 AI
[2024-02-18 08:03] LABS: EBV Virus Capsid Ag IgM Ab <36.00 U/mL
[2024-02-21 04:19] LABS: Triiodothyronine T3 Free 3.2 pg/mL (2.3-4.2)
[2024-02-21 04:22] LABS: Thyroid Peroxidase Antibodies 774 IU/mL (<9)
[2024-02-23 22:54] LABS: T3 Reverse 15 ng/dL (8-25)
== END 2024-02-17 09:26 | disposition home or self-care (01) ==
PROVIDERS: PCP Family Medicine; Visit Provider Nurse Practitioner
DX: E61.1 Iron deficiency (principal); E55.9 Vitamin D deficiency, unspecified; E03.9 Hypothyroidism, unspecified; Z77.120 Contact with and (suspected) exposure to mold (toxic); B27.80 Other infectious mononucleosis without complication; E06.3 Autoimmune thyroiditis; Z71.3 Dietary counseling and surveillance; Z86.39 Personal history of other endocrine, nutritional and metabolic disease
CPT/HCPCS: 36415; 82306; 82728; 83540; 83550; 84439; 84443; 84481; 84482; 86036; 86160; 86376; 86664; 86665

== ENCOUNTER 2024-04-05 10:50 | Emergency (ER) | payer BC, MEDICARE, SELFPAY ==
[2024-04-05] VITALS (14 sets, daily range): BP systolic 100–118; BP diastolic 67–93; PULSE 72–93; RESP 15–19; TEMP 36.9; O2SAT 98–100
--- NOTE | 2024-04-05 11:03 | ECG_ITS ---
Test Date: 2024-04-05 11:08:32 Measurements Intervals [place] Rate: 87 P: 69 OR: 106 QRS: 59 QRSD: 83 T: 72 QT: 342 QTc: 412 Interpretive Statements SINUS RHYTHM WITH SINUS ARRHYTHMIA WITH SHORT OR INTERVAL MINIMAL Q WAVES- ANTEROLAT/INF LEADS BASELINE ARTIFACT- I, II, III, AVL, V6 BORDERLINE ECG No previous ECG available for comparison Electronically Signed On 04-05-2024 11:13:38 PRACTICE MANAGEMENT CONSULTANT by Tee Cortez D.O.
[2024-04-05 11:31] LABS: Hematocrit 43.7 % (35.0-49.0); Hemoglobin 15.5 g/dL (12.0-15.0); Mean Corpuscular HGB Conc 35.5 g/dL (32-36); Mean Corpuscular Volume 90.3 fL (78.0-102.0); Mean Platelet Volume 9.6 fl (9.2-11.8); Platelet Count Result 214 K/mm3 (150-420); Red Blood Count 4.84 M/mm3 (4.20-5.40); Red Cell Distribution Width 11.7 % (11.6-14.4); White Blood Count 3.4 K/mm3 (4.8-10.8)
[2024-04-05 11:57] LABS: Band Neutrophils Percent 0 % (0-6); Lymphocytes Absolute Manual 1.15 K/mm3 (1.1-4.5); Lymphocytes Percent Manual 34 % (18-44); Monocytes Absolute Manual 0.23 K/mm3 (0.1-0.90); Monocytes Percent Manual 7 % (3-9); Neutrophils Percent Manual 59 % (46-73); Platelet Estimate Adequate (Adequate); Total Cells Counted 100
[2024-04-05 12:14] LABS: Alanine Aminotransferase 31 U/L (14-59); Albumin Level 3.8 g/dL (3.4-5.0); Alkaline Phosphatase 89 U/L (46-116); Anion Gap 10 mmol/L (4-12); Aspartate Amino Transferase 16 U/L (15-37); Bilirubin,Total 0.6 mg/dL (0.00-1.00); Blood Urea Nitrogen 9 mg/dL (7-18); Calcium 9.3 mg/dL (8.5-10.1); Carbon Dioxide 27 mmol/L (21-32); Chloride 105 mmol/L (98-108); Estimated CRCL calculation 110 ml/min; Estimated Glomerular Filt Rate > 60; Glucose 57 mg/dL (70-99); Osmolality Calculated 290 mOsm/kg (285-295); Sodium 142 mmol/L (136-145); Total Protein 7.7 g/dL (6.4-8.2); Troponin I < 4.0 ng/L (0.00-60.4)
--- NOTE | 2024-04-05 12:16 | ED_ITS ---
HPI - Chest Pain General Chief Complaint: Chest Pain Stated Complaint: chest pain Time Seen by Provider: 04/05/24 10:53 Source: patient Mode of arrival: ambulatory Limitations: no limitations History of Present Illness HPI narrative: this is a 28-year-old female who presents with chest discomfort with no diaphoresis fever chills shortness of breath no nausea or vomiting. Started earlier this morning patient has a history of accessory pathway with an ablation history. Also has a history of anxiety, currently has been having tightness with no radiation no fever chills no shortness of breath no diaphoresis. MD complaint: chest discomfort Pertinent past history: other Onset (ago): hour(s) Timing of current episode: now resolved Onset: during rest Pain location: right chest Review of Systems Review of Systems: All systems reviewed & are unremarkable except as noted in HPI and below PMFSH Surgical History Surgical History S/P ablation of ventricular arrhythmia Exam Const: General: healthy appearing and no acute distress Nutritional Appearance: well nourished Orientation/consciousness: patient oriented x3 Limitations: no limitations HENMT: Head: normal to inspection Eyes: Conjunctivae: conjunctivae normal Pupils: Equal, round and reactive pupils present EOM: EOMs intact bilaterally Neck: Neck: normal visual inspection Chest: Chest palpation & inspection: normal inspection of the chest Resp: Effort & Inspection: normal respiratory effort Cardio: Rate: regular rate Rhythm: regular rhythm GI: Auscultation: normal bowel sounds Skin: General skin exam: normal color Rashes: no rashes Neuro: General: patient oriented x3, moves all extremities, no meningeal signs and no focal motor deficits Course Course Emergency Course: EKG performed and reviewed shows normal sinus rhythm patient states that her symptoms have resolved vital signs are stable patient satting 100% on room air with a blood pressure 118/93 labs performed and reviewed with patient. Vital Signs Vital signs: Vital Signs Pulse Rate 86 04/05/24 10:50 Temperature 36.9 C 04/05/24 10:58 Pulse Rate 83 04/05/24 11:03 Respiratory Rate 15 04/05/24 11:03 Blood Pressure 118/93 H 04/05/24 11:03 Pulse Oximetry 100 04/05/24 11:03 Oxygen Delivery Room Air 04/05/24 11:03 MDM - Chest Pain Lab Data 04/05/24 11:26 04/05/24 11:26 Labs: Lab Results 04/05/24 Range/Units 11:26 WBC 3.4 L (4.8-10.8) K/mm3 RBC 4.84 (4.20-5.40) M/mm3 Hgb 15.5 H (12.0-15.0) g/dL Hct 43.7 (35.0-49.0) % MCV 90.3 (78.0-102.0) fL MCH 32.0 H (27.0-31.0) pg MCHC 35.5 (32-36) g/dL RDW 11.7 (11.6-14.4) % Plt Count 214 (150-420) K/mm3 MPV 9.6 (9.2-11.8) fl Immature Gran % (Auto) Not Reportable Neut % (Auto) Not Reportable Lymph % (Auto) Not Reportable [place] % (Auto) Not Reportable Eos % (Auto) Not Reportable Baso % (Auto) Not Reportable Lymph # (Auto) Not Reportable [place] # (Auto) Not Reportable Eos # (Auto) Not Reportable Baso # (Auto) Not Reportable Abs Immat Gran (auto) Not Reportable Absolute Neuts (auto) Not Reportable Absolute Nucleated RBC Not Reportable Total Counted 100 Neutrophils % (Manual) 59 (46-73) % Band Neutrophils % 0 (0-6) % Lymphocytes % (Manual) 34 (18-44) % Monocytes % (Manual) 7 (3-9) % Nucleated RBC % Not Reportable Abs Neuts (Manual) 2.00 (1.7-7.2) K/mm3 Abs Lymphs (Manual) 1.15 (1.1-4.5) K/mm3 Abs Monocytes (Manual) 0.23 (0.1-0.90) K/mm3 Platelet Estimate Adequate (Adequate) Schistocytes Not Reportable Sodium 142 (136-145) mmol/L Potassium 4.0 (3.5-5.1) mmol/L Chloride 105 (98-108) mmol/L Carbon Dioxide 27 (21-32) mmol/L Anion Gap 10 (4-12) mmol/L BUN 9 (7-18) mg/dL Creatinine 0.62 (0.55-1.02) mg/dL Estim Creat Clear Calc 110 ml/min Estimated GFR > 60 (59 - ) Glucose 57 L (70-99) mg/dL Calculated Osmolality 290 (285-295) mOsm/kg Calcium 9.3 (8.5-10.1) mg/dL Total Bilirubin 0.6 (0.00-1.00) mg/dL AST 16 (15-37) U/L ALT 31 (14-59) U/L Alkaline Phosphatase 89 (46-116) U/L Troponin I < 4.0 (0.00-60.4) ng/L Total Protein 7.7 (6.4-8.2) g/dL Albumin 3.8 (3.4-5.0) g/dL TSH 1.40 (0.36-3.74) uIU/mL Critical Care Time Critical Care Time Critical Care Time: No Discharge Plan Discharge Clinical Impression: S/P ablation of ventricular arrhythmia, Atypical chest pain Patient Disposition: Home, Self-Care Condition: Stable Instructions: Antibiotic Form, Chest Pain (ED) Additional Instructions: 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 Follow-up/Referrals: UNKNOWN,DOCTOR [Primary Care Provider] - Time of Disposition: 12:20
== END 2024-04-05 12:25 | disposition home or self-care (01) ==
PROVIDERS: Emergency Provider Emergency Medicine
DX: R07.89 Other chest pain (principal)
CPT/HCPCS: 36415; 80053; 84443; 84484; 85025; 93005; 99284

== ENCOUNTER 2024-04-16 10:41 | Emergency (ER) | payer BC, MEDICARE, SELFPAY ==
--- NOTE | ~2024-04-16 | CT_ITS ---
EXAMINATION: CT lumbar spine wo con DATE: 04/16/2024 12:25 INDICATION: Coccygeal and left buttock pain post fall TECHNIQUE: Computed tomography (CT) of the lumbar spine was performed without intravenous contrast. A utomated exposure control and iterative reconstruction technique were employed. The dose-length produ ct was 631.29 mGy-cm. COMPARISON: Radiographs dated 04/16/2024 FINDINGS: Transitional T12 segment with right-sided transverse process and left-sided hypoplastic riblets. Ther e is also a transitional sacralized L5 segment. There are 4 intervening nonrib-bearing lumbar segment s L1-L4. Alignment is normal. Vertebral body heights are normal. Nondisplaced fracture extending thro ugh the caudal aspect of the caudal-most S5 segment. There is a small corticated heterotopic ossifica tion anterior to the coccyx along the pubococcygeal ligament. Disc heights are normal and is dyskinet ic extend beyond the endplate margins. No central canal stenosis. There is multilevel minimal to mild lumbar facet osteoarthritis. No neural foraminal stenosis. Trace amount of likely physiologic free f luid in the cul-de-sac. Bladder, uterus, bilateral adnexa and visualized portions of bowels including the appendix are normal. No pathologically enlarged pelvic lymphadenopathy. IMPRESSION: 1. Nondisplaced transverse fracture across the caudal aspect of the S5. Reviewed, dictated and finalized at location B. DATION STAGE TEACHER
--- NOTE | ~2024-04-16 | XR_ITS ---
3 VIEWS LUMBAR SPINE Ordering provider: Naveed Temple MD History: . FALL . Comparison: None. FINDINGS: VERTEBRAL BODIES:Lucency seen in the first segment of the coccyx which may indicate a fracture or sum mation shadow. CT evaluation advised. No other visible fracture or subluxation. Sacralization of L5. DISK SPACES: Normal. SOFT TISSUES: Normal. IMPRESSION: Lucency seen in the first segment of the coccyx which may be a fracture or summation shadow. CT evalu ation advised. Otherwise, No acute osseous abnormality lumbar spine. Consider follow up MRI lumbar spine if there is concern for spinal stenosis/neural impingement. Reviewed, dictated and finalized at location A. RATORY COURIER IMPRESSION: Lucency seen in the first segment of the coccyx which may be a fracture or summ ation shadow. CT evaluation advised. Otherwise, No acute osseous abnormality castillo mbar spine. Consider follow up MRI lumbar spine if there is concern for spinal stenosis/bonny ral impingement.
--- NOTE | ~2024-04-16 | XR_ITS ---
XR sacrum coccyx min 2V Ordering provider: Naveed Temple MD History: . FALL with pain times this A.M. . Comparison: None. FINDINGS: BONES: No acute fracture or dislocation. Slight bending of the coccyx. JOINTS: The sacroiliac joint spaces shows a right sacroiliitis with possible effusion. SOFT TISSUES: Normal. IMPRESSION: No acute osseous abnormality sacrum. If still clinically suspicious CT is advised. Right sacroiliitis with possible effusion. Reviewed, dictated and finalized at location A. ESSING TECHNICIAN
[2024-04-16 10:47] VITALS: BP 124/82; PULSE 109; RESP 20; TEMP 37.2; O2SAT 100
--- NOTE | 2024-04-16 10:47 | ED_ITS ---
HPI - Fall General Chief Complaint: Fall Stated Complaint: fall, tailbone pain Time Seen by Provider: 04/16/24 10:47 Source: patient Mode of arrival: ambulatory Limitations: no limitations History of Present Illness HPI Narrative: PATIENT SLIPPED ON A WET GROUND LANDED ON HER BOTTOM, PRIOR TO ARRIVAL, COMPLAINING OF TAILBONE PAIN. SHE DENIES OTHER INJURIES Related Data Allergies Allergy/AdvReac Type Severity Reaction Status Date / Time Sulfa (Sulfonamide Allergy Mild RASH Verified 04/16/24 11:04 Antibiotics) diltiazem Allergy Rash Verified 04/16/24 11:04 metoprolol Allergy Rash Verified 04/16/24 11:04 fluoxetine [From Prozac] AdvReac Intermediate Unknown Verified 04/16/24 11:04 omeprazole AdvReac Unknown Verified 04/16/24 11:04 zypam AdvReac Palpitation Uncoded 04/16/24 11:04 s Review of Systems Review of Systems: All systems reviewed & are unremarkable except as noted in HPI and below PMFSH Past Medical History Medical History Allergic MARION positive BMI 22.0-22.9, adult BMI 23.0-23.9, adult BMI 24.0-24.9, adult BMI 25.0-25.9,adult Depression Fibromyalgia Lordosis of cervicothoracic region Neck pain PSVT (paroxysmal supraventricular tachycardia) SVT (supraventricular tachycardia) Tachyarrhythmia Tobacco abuse Surgical History Surgical History S/P ablation of ventricular arrhythmia S/P ablation operation for arrhythmia [place] teeth extracted Family History Family History Father Tongue cancer COVID-19 Mother Cardiac abnormality Grandparent COPD (chronic obstructive pulmonary disease) Sibling COVID-19 Social History Social History Years smoked: 10 Smoking status: Former smoker Tobacco type: cigarettes Second hand tobacco smoke exposure: No Alcohol intake: never Substance use: current Substance use type: marijuana Do You Feel Safe in your Home?: Yes Lack of Transportation: No Lack of Food: Never True Current Housing: I Have Housing Concerned About Future Housing: No Difficulty Paying Gas/Electric Bills: No Difficulty Paying for Meds: No Currently Unemployed: No Education: High School Diploma/GED Difficulty w/ Childcare or Family Care: No Living arrangements: with family Additional living arrangements comments: fianc? Occupation/Education: unemployed Gender identity (if verbalized by the patient): Female Sexual Orientation (if Verbalized by the Patient): Straight or Heterosexual Spiritual care concerns: No Exam Narrative: GENERAL APPEARANCE: WELL-DEVELOPED, WELL-NOURISHED SKIN: NORMAL COLOR HEAD: NORMOCEPHALIC, NONTRAUMATIC NECK: SUPPLE, NONTENDER MUSCULOSKELETAL: MILD TENDERNESS OF THE TAILBONE, NO BRUISES, NO DEFORMITY NEUROLOGIC: ALERT AND ORIENTED ?3, MAJOR LEAGUE BASEBALL UMPIRE IS NORMAL TESTED, NO GROSS MOTOR DEFICIT Course Vital Signs Vital signs: Vital Signs Temperature 37.2 C 04/16/24 10:47 Pulse Rate 109 H 04/16/24 10:47 Respiratory Rate 20 04/16/24 10:47 Blood Pressure 124/82 04/16/24 10:47 Pulse Oximetry 100 04/16/24 10:47 Oxygen Delivery Room Air 04/16/24 10:47 Temperature 37.2 C 04/16/24 10:47 Pulse Rate 109 H 04/16/24 10:47 Respiratory Rate 20 04/16/24 10:47 Blood Pressure 124/82 04/16/24 10:47 Pulse Oximetry 100 04/16/24 10:47 Oxygen Delivery Room Air 04/16/24 10:47 MDM - Fall MDM Narrative Medical decision making narrative: PATIENT LANDED ON HER BOTTOM, SLIPPED ON A WET GROUND. VITAL SIGNS SHOWING HEART RATE OF 109 HIGH LIKELY PAIN RELATED PHYSICAL EXAMINATION SHOWING SLIGHT TENDERNESS AT THE TAILBONE, NO BRUISES OR SWELLING OR DEFORMITY DIFFERENTIAL DIAGNOSIS INCLUDE CONTUSION VERSUS FRACTURE. X-RAY OF THE LUMBAR SPINE, SACRUM AND COCCYX SHOWED NO ACUTE OSSEOUS ABNORMALITY CT LUMBAR SPINE SHOWED NONDISPLACED FRACTURE OF S5 THE PT WAS DISCHARGED TO HOME.THE PT,S CONDITION UPON DISCHARGE WAS FAIR,EDUCATION WAS PROVIDED TO THE PT IN REFERENCE TO THE FINAL IMPRESSION,DISCHARGE STUDY RESULTS,TREATMENT,PROGNOSIS AND NEED FOR FOLLOW UP . Differential Diagnosis Differential diagnosis: Likely compression fracture and other ( CONTUSION) Lab Data Labs: Lab Results 04/16/24 Range/Units 10:46 Urine Test Negative ABG Data Interpretation: Impressions Sacrum and Coccyx X-Ray 04/16/24 11:52 IMPRESSION: No acute osseous abnormality sacrum. If still clinically suspicious CT is advised. Right sacroiliitis with possible effusion. Lumbar Spine X-Ray 04/16/24 11:57 IMPRESSION: Lucency seen in the first segment of the coccyx which may be a fracture or summation shadow. CT evaluation advised. Otherwise, No acute osseous abnormality lumbar spine. Consider follow up MRI lumbar spine if there is concern for spinal stenosis/neural impingement. Lumbar Spine CT 04/16/24 12:31 IMPRESSION: 1. Nondisplaced transverse fracture across the caudal aspect of the S5. Imaging Data Radiologist's impression: X-RAY OF THE LUMBAR SPINE, SACRUM AND COCCYX SHOWED NO ACUTE OSSEOUS ABNORMALITY Critical Care Time Critical Care Time Critical Care Time: No Discharge Plan Discharge Clinical Impression: Lower back pain, Closed fracture of sacrum Patient Disposition: Home, Self-Care Condition: Stable Instructions: Sacral Fracture (ED), Acute Low Back Pain (ED) Additional Instructions: RETURN IF SYMPTOMS ARE WORSENING , CALL YOUR FAMILY PHYSICIAN FOR APPOINTMENT, TAKE TYLENOL 650, IBUPROFEN 600 MG NEEDED FOR ACHES AND PAIN, CONTINUE HOME MEDICATIONS., ICE PACK 20 MINUTES/HOUR FOR THE NEXT 24 HOURS, DONUT FOR SITTING MIRALAX [id number], 1 PACK ONCE A DAY Prescriptions: New diclofenac sodium 75 mg tablet,delayed release (DR/EC) 75 mg PO BID PRN (Reason: pain) Qty: 20 0RF No Action Lo Loestrin Fe 1 mg-10 mcg (24)/10 mcg (2) tablet 1 tablet PO DAILY Qty: 84 3RF Follow-up/Referrals: Michael Montejo MD [Primary Care Provider] -
[2024-04-16 11:05] LABS: Pregnancy On Board Control Positive; Urine Pregnancy Test Negative
--- NOTE | 2024-04-16 11:25 | PC.NURSE ---
Patient taken down to radiology
--- NOTE | 2024-04-16 11:33 | PC.NURSE ---
Patient back in room.
[2024-04-16 12:06] VITALS: BP 122/80; PULSE 89; RESP 16; TEMP 37.2; O2SAT 100
[2024-04-16 12:58] VITALS: BP 110/74; PULSE 78; RESP 16; TEMP 37.2; O2SAT 100
== END 2024-04-16 12:58 | disposition home or self-care (01) ==
PROVIDERS: Emergency Provider Emergency Medicine; PCP Family Medicine
DX: S32.10XA Unspecified fracture of sacrum, initial encounter for closed fracture (principal); Z87.891 Personal history of nicotine dependence; W01.0XXA Fall on same level from slipping, tripping and stumbling without subsequent striking against object, initial encounter
CPT/HCPCS: 72100; 72131; 72220; 81025; 99284

== ENCOUNTER 2024-05-09 03:30 | Emergency (ER) | payer BC, MEDICARE, SELFPAY ==
[2024-05-09 03:45] VITALS: BP 108/77; PULSE 96; RESP 17; TEMP 37; O2SAT 100
--- NOTE | 2024-05-09 04:09 | ED_ITS ---
HPI - Skin/Abscess/Foreign Bdy General Chief complaint: Skin/Abscess/Foreign Body Stated complaint: Skin Problem Time Seen by Provider: 05/09/24 04:04 Source: patient Mode of arrival: ambulatory Limitations: no limitations History of Present Illness HPI narrative: 28 year old female presents to the Emergency Department complaining of swelling /lump and tenderness to the upper intergluteal region. Noted 3-4 days ago. Saw PCP and scheduled for an ultrasound today. states had sacral fracture and unsure if related. MD complaint: abscess/boil Onset (ago): day(s) (4) Location: buttocks Severity: moderate Pain Consistency: other (with palpation) Relieving factors: none Exacerbating factors: palpation Associated symptoms: denies other symptoms Treatments prior to arrival: none Related Data Home Medications ?Medication ?Instructions ?Recorded ?Confirmed ?Last Taken ?Type thyroid (pork) 30 mg tablet 30 mg PO DAILY 04/20/24 05/09/24 Unknown History ([place] Thyroid) Allergies Allergy/AdvReac Type Severity Reaction Status Date / Time Sulfa (Sulfonamide Allergy Mild RASH Verified 05/09/24 03:56 Antibiotics) diltiazem Allergy Rash Verified 05/09/24 03:56 metoprolol Allergy Rash Verified 05/09/24 03:56 fluoxetine (From Prozac) AdvReac Intermediate Unknown Verified 05/09/24 03:56 omeprazole AdvReac Unknown Verified 05/09/24 03:56 zypam AdvReac Palpitation Uncoded 05/08/24 11:01 s Review of Systems Review of Systems: All systems reviewed & are unremarkable except as noted in HPI and below Constitutional: Constitutional: Reports as per HPI, Denies chills and Denies fever(s) Eyes: Eyes: Reports as per HPI ENT: Reports system reviewed and no additional complaints, except as documented Cardiovascular: Cardiovascular: Reports as per HPI Respiratory: Respiratory: Reports as per HPI Gastrointestinal: Gastrointestinal: Reports as per HPI, Denies abdominal pain, Denies diarrhea, Denies nausea and Denies vomiting Genitourinary: Genitourinary: Reports no additional female genitourinary complaints Musculoskeletal: Musculoskeletal: Reports no additional musculoskeletal complaints Integumentary/Breasts: Skin/Breast: Reports system reviewed and no additional complaints, except as docu Neurologic: Reports system reviewed and no additional complaints, except as documented Psychiatric: Psychiatric: Reports no additional psychiatric complaints Endocrine: Endocrine: Reports no additional endocrine complaints Hematologic/Lymphatic: Hematologic/Lymphatic: Reports no additional hematologic/lymphatic complaints Allergic/Immunologic: Allergic/Immunologic: Reports no additional allergic/immunologic complaints PMFSH Past Medical History Medical History Sacral fracture Mass of buttock Keith's disease SVT (supraventricular tachycardia) Fibromyalgia PSVT (paroxysmal supraventricular tachycardia) Tachyarrhythmia Allergic Neck pain Depression MARION positive Lordosis of cervicothoracic region Tobacco abuse Surgical History Surgical History S/P ablation of ventricular arrhythmia S/P ablation operation for arrhythmia [place] teeth extracted Family History Family History Father Tongue cancer COVID-19 Mother Cardiac abnormality Grandparent COPD (chronic obstructive pulmonary disease) Sibling COVID-19 Social History Social History Years smoked: 10 Smoking status: Former smoker Tobacco type: cigarettes Second hand tobacco smoke exposure: No Alcohol intake: never Substance use: current Substance use type: marijuana Do You Feel Safe in your Home?: Yes Lack of Transportation: No Lack of Food: Never True Current Housing: I Have Housing Concerned About Future Housing: No Difficulty Paying Gas/Electric Bills: No Difficulty Paying for Meds: No Currently Unemployed: No Education: High School Diploma/GED Difficulty w/ Childcare or Family Care: No Living arrangements: with family Additional living arrangements comments: fianc? Occupation/Education: unemployed Gender identity (if verbalized by the patient): Female Sexual Orientation (if Verbalized by the Patient): Straight or Heterosexual Spiritual care concerns: No Exam Const: General: healthy appearing and no acute distress Nutritional Appearance: well nourished Orientation/consciousness: patient oriented x3 Limitations: no limitations HENMT: Head: normal to inspection Face/Nose/Sinus: Normal external nose present Face and sinus: normal facial exam Eyes: Pupils: Equal, round and reactive pupils present EOM: EOMs intact bilaterally Direct Ophthalmoscopy: no photophobia Neck: Neck: normal visual inspection Chest: Chest palpation & inspection: normal inspection of the chest Resp: Effort & Inspection: normal respiratory effort Cardio: Rate: regular rate GI: Inspection: non-distended Back/Spine/Pelvis: Back: no CVA tenderness Skin: General skin exam: normal color Rashes: no rashes Other: tender to palpation upper intergluteal region with probably fluctuant region left side [most likely early abscess] Neuro: General: patient oriented x3 Speech: normal speech Gait exam (Neuro): Normal gait present Other: grossly normal Extrem: General: normal to inspection and no clubbing, cyanosis or edema Course Course Emergency Course: 28 y/o female presents to the ED c/o noting swelling /lump to intergluteal region 4 days ago. Was seen by PCP and scheduled for an ultrasound today. States is painful. PE: mild swelling, with probable fluctuant region to intergluteal region right side. Tender to palpation. *discussed with patient. Patient does not wish to have I&D at this time. Offered antibiotics. Patient wishes to wait until she has ultrasound to confirm. Instructions Discharge Plan Discharge Clinical Impression: Abscess and cellulitis of gluteal region Patient Disposition: Home, Self-Care Condition: Stable Instructions: Abscess (ED) Additional Instructions: Get your ultrasound as scheduled today Follow up with your Primary Care Provider Patient Language: Hong [place]er Prescriptions: No Action Lo Loestrin Fe 1 mg-10 mcg (24)/10 mcg (2) tablet 1 tablet PO DAILY Qty: 84 3RF thyroid (pork) [[place] Thyroid] 30 mg tablet 30 mg PO DAILY Follow-up/Referrals: Michael Montejo MD [Primary Care Provider] - Time of Disposition: 04:12
--- NOTE | 2024-05-09 04:12 | PC.NURSE ---
Pt has refused antibiotics and pain medicine. She stated that she thought she could get an ultrasound in this ER. Since she can't, she is just going to wait and see what they say at her ultrasound appt later today and then follow up with her PCP.
== END 2024-05-09 04:17 | disposition home or self-care (01) ==
PROVIDERS: Emergency Provider Emergency Medicine; PCP Family Medicine
DX: L03.317 Cellulitis of buttock (principal); L02.31 Cutaneous abscess of buttock; Z87.891 Personal history of nicotine dependence
CPT/HCPCS: 99281

== ENCOUNTER 2024-05-09 12:20 | Outpatient (CLI) | payer BC, MEDICARE, SELFPAY ==
--- NOTE | ~2024-05-09 | US_ITS ---
Buttock ULTRASOUND Ordering provider: Lela Huffman APRN History: . R22.2 - Localized swelling, mass and lump, trunk . Comparison: None. FINDINGS/impression: 2 x 2.1 x 2 cm heterogenous mass with blood flow is noted in the buttock area midline. This may indic ate an abscess. Mass is not excluded although less likely. Further evaluation advised. Reviewed, dictated and finalized at location A. THESIOLOGISTS' ASSISTANT
== END 2024-05-09 12:21 | disposition home or self-care (01) ==
PROVIDERS: PCP Family Medicine; Visit Provider Nurse Practitioner Adult Health
DX: R22.2 Localized swelling, mass and lump, trunk (principal); M79.89 Other specified soft tissue disorders
CPT/HCPCS: 76705

== ENCOUNTER 2024-05-10 02:49 | Emergency (ER) | payer BC, MEDICARE, SELFPAY ==
--- NOTE | ~2024-05-10 | CT_ITS ---
CT of the Abdomen and Pelvis: Indication: Perirectal mass Technique: 2.5 mm axial scans were obtained through the abdomen and pelvis following intravenous adm inistration of 100 cc of Omnipaque 350. Dose reduction technique was used on this scan by utilizing a utomated exposure control and iterative reconstruction technique. The dose-length product (DLP) was 6 70.76 mGy-cm. COMPARISON: 12/31/2023 Findings: Scans through the lung bases are unremarkable. The liver, spleen, pancreas, gallbladder, adrenals and kidneys are within normal limits. No evidence of aortic aneurysm. No lymphadenopathy. No bowel obstruction or bowel wall thickening. There is no evidence to suggest acute appendicitis. Images through the pelvis were performed. Urinary bladder unremarkable. No pelvic mass seen. No ascit es. There is a 2.5 cm round peripherally enhancing fluid collection the subcutaneous soft tissues jus t superficial to the inferior tip of the coccyx (axial image 187). Impression: 2.5 cm peripherally enhancing fluid collection in the subcutaneous soft tissues at the low back in th e midline, just superficial to the inferior tip of the coccyx. This could reflect a subcutaneous absc ess or infected sebaceous cyst. Reviewed, dictated and finalized at [facility]. [employer] INSTRUCTOR Impression: 2.5 cm peripherally enhancing fluid collection in the subcutaneous soft tissues at the low back in the midline, just superficial to the inferior tip of the co ccyx. This could reflect a subcutaneous abscess or infected sebaceous cyst.
[2024-05-10 03:05] VITALS: BP 93/63; PULSE 94; RESP 16; TEMP 36.7; O2SAT 100
--- NOTE | 2024-05-10 04:11 | ED_ITS ---
HPI - General Adult General Chief complaint: Skin/Abscess/Foreign Body Stated complaint: fx sacrum; developed abscess Time Seen by Provider: 05/10/24 02:58 History of Present Illness HPI narrative: Patient is a 28-year-old female who presents to the emergency department this evening complaining of a painful abscess overlying her tailbone. Patient states that approximately 4 weeks ago she had a fall and was seen in the hospital after the and had imaging results which revealed fractured tailbone. Patient states that about 5 days ago she noticed a tender area overlying her tailbone and initially did not think much of it and thought that he could be due to the fall and the fractured tailbone, however, within the past few days she noticed the area has doubled in size. Patient saw her primary care physician 2 days ago who ordered an outpatient ultrasound for evaluation of the abscess/mass. PCP recommended starting the patient on antibiotics, however, patient not want to be started on antibiotics or have the PCP attempt anI&D prior to obtaining ultrasound results. Patient states that every day she notices that the area gets more painful and this morning patient states that she could not take the pain anymore and decided to come to the emergency department for further evaluation. Denies any similar symptoms in the past. Denies any fevers or chills. Patient states that she has been taking [id number] Tylenol for the pain which does alleviate her pain for a few hours and the pain is back again. Related Data Home Medications ?Medication ?Instructions ?Recorded ?Confirmed ?Last Taken ?Type thyroid (pork) 30 mg tablet 30 mg PO DAILY 04/20/24 05/17/24 Unknown History ([place] Thyroid) Allergies Allergy/AdvReac Type Severity Reaction Status Date / Time Sulfa (Sulfonamide Allergy Mild RASH Verified 05/17/24 09:42 Antibiotics) diltiazem Allergy Rash Verified 05/17/24 09:42 metoprolol Allergy Rash Verified 05/17/24 09:42 fluoxetine (From Prozac) AdvReac Intermediate Unknown Verified 05/17/24 09:42 omeprazole AdvReac Unknown Verified 05/17/24 09:42 zypam AdvReac Palpitation Uncoded 05/17/24 09:42 s Review of Systems 2 Review of Systems: All systems are reviewed and are negative unless stated otherwise in the HPI. [facility] Past Medical History Medical History (Updated 05/17/24 @ 10:22 by Cassi Fajardo CMA) Thyroid disorder Sacral fracture Mass of buttock Keith's disease SVT (supraventricular tachycardia) Fibromyalgia PSVT (paroxysmal supraventricular tachycardia) Tachyarrhythmia Allergic Neck pain Depression MARION positive Lordosis of cervicothoracic region Tobacco abuse Surgical History Surgical History S/P ablation of ventricular arrhythmia S/P ablation operation for arrhythmia [place] teeth extracted Family History Family History Father Tongue cancer COVID-19 Mother Cardiac abnormality Grandparent COPD (chronic obstructive pulmonary disease) Sibling COVID-19 Social History Social History Years smoked: 10 Smoking status: Former smoker Tobacco type: cigarettes Second hand tobacco smoke exposure: No Alcohol intake: never Substance use: current Substance use type: marijuana Do You Feel Safe in your Home?: Yes Lack of Transportation: No Lack of Food: Never True Current Housing: I Have Housing Concerned About Future Housing: No Difficulty Paying Gas/Electric Bills: No Difficulty Paying for Meds: No Currently Unemployed: No Education: High School Diploma/GED Difficulty w/ Childcare or Family Care: No Living arrangements: with family Additional living arrangements comments: fianc? Occupation/Education: unemployed Gender identity (if verbalized by the patient): Female Sexual Orientation (if Verbalized by the Patient): Straight or Heterosexual Spiritual care concerns: No Exam 2 Narrative: General: Alert, awake, afebrile, in moderate distress due to pain. HEENT: PERRL, no rhinorrhea, no post nasal drip, oropharynx clear. Neck: Trachea midline, no JVD, no lymphadenopathy. Cardiovascular: Regular rate and rhythm, no murmurs, rubs or gallops, no peripheral edema. Respiratory: Clear to auscultation bilaterally, no tachypnea, no wheezing, no rhonchi, no rubs, no respiratory distress. Abdomen: Soft, nontender, nondistended, no rebound, no guarding, no peritoneal signs. Rectal: Tenderness to palpation overlying the tailbone, erythema noted to the bilateral upper gluteal region overlying the tailbone, no palpable fluctuance. Musculoskeletal: No joint swelling or deformity, normal muscle tone. Skin: No rashes or petechia, no signs of infection. Psychiatric: Alert and oriented, normal behavior and judgment for situation. Neurological: Alert and oriented to person, place, and time. Follows all commands. No focal deficits, speech is clear and fluent. Course Vital Signs Vital signs: Vital Signs Temperature 98.1 F 05/10/24 03:05 Pulse Rate 94 05/10/24 03:05 Respiratory Rate 16 05/10/24 03:05 Blood Pressure 93/63 L 05/10/24 03:05 Pulse Oximetry 100 05/10/24 03:05 Temperature 98.1 F 05/10/24 03:05 Pulse Rate 110 H 05/10/24 07:45 Respiratory Rate 20 05/10/24 07:45 Blood Pressure 110/72 05/10/24 07:45 Pulse Oximetry 100 05/10/24 07:45 Procedures Abscess I/D porfirio-rectal: Date of Incision: 05/10/24 Time of Incision: 07:00 Local Anesthetic: lidocaine 1% Amount of anesthesia used (mL): 3 Technique: incised with #11 blade Amount of fluid expressed (mL): 20 Irrigation: No Packing used?: none I&D Results: Pus and Blood Medical Decision Making MDM Narrative Medical decision making narrative: The patient was evaluated by myself in the emergency department. History is obtained from patient who is an independent historian and physical exam was performed. External medical records were reviewed at this time. IV was established and pertinent tests were ordered. Patient was administered 4 mg of IV morphine for pain and 4 mg of IV Zofran for nausea. Laboratory results obtained revealing no acute process. Formal ultrasound which was performed yesterday revealed: 2 x 2.1 x 2 cm heterogenous mass with blood flow is noted in the buttock area midline. This may indicate an abscess. Mass is not excluded although less likely. Further evaluation advised. Bedside ultrasound performed by me today revealed a 2 x 2 cm round heterogeneous mass which does not resemble abscess/fluid collection. At this time I did inform the patient that I would like to obtain a CT abdomen and pelvis for further evaluation of this mass. Imaging studies obtained included CT abdomen and pelvis with IV contrast which was independently interpreted by me revealin.5 cm peripherally enhancing fluid collection in the subcutaneous soft tissues at the low back in the midline, just superficial to the inferior tip of the coccyx. This could reflect a subcutaneous abscess or infected sebaceous cyst. Patient was informed of these findings at bedside and at this time I and D was obtained as detailed under procedural note. Differential diagnosis considerations include abscess, hematoma, cellulitis. Comorbidities impacting this visit include none. I have evaluated and discussed social determinants of health with the patient that could potentially impact subsequent diagnosis and treatment plans. On repeat assessment of the patient, reevaluation revealed that the patient is doing well and is in no acute distress. Patient symptoms have improved since she arrived to our emergency department. Repeat vital signs were all reviewed and noted to be stable. Differential diagnosis and treatment plan were discussed with the patient at bedside. Patient agrees with discussion and after shared medical decision making agrees with discharge. All questions were answered to the patient's satisfaction. Patient will follow up with PCP in 3-5 days. Patient was provided with strict return precautions and instructed to return to the emergency department if any new or worsening symptoms develop. The patient was discharged in stable condition. Vital Signs Vital Signs: Vital Signs Temperature 98.1 F 05/10/24 03:05 Pulse Rate 94 05/10/24 03:05 Respiratory Rate 16 05/10/24 03:05 Blood Pressure 93/63 L 05/10/24 03:05 Pulse Oximetry 100 05/10/24 03:05 Temperature 98.1 F 05/10/24 03:05 Pulse Rate 110 H 05/10/24 07:45 Respiratory Rate 20 05/10/24 07:45 Blood Pressure 110/72 05/10/24 07:45 Pulse Oximetry 100 05/10/24 07:45 Lab Data 05/10/24 05:01 05/10/24 05:01 Labs: Lab Results 05/10/24 05/10/24 Range/Units 05:01 05:03 WBC 9.8 (4.5-10.0) K/mm3 RBC 4.41 (4.2-5.4) M/mm3 Hgb 14.3 (12.0-15.0) g/dL Hct 40.2 (37.0-47.0) % MCV 91.2 (80-100) fl MCH 32.4 (26-34) pg MCHC 35.6 (32-36) g/dl RDW 11.6 (11.5-14.5) % Plt Count 243 (150-375) k/mm3 MPV 9.8 (7.4-10.4) fl Immature Gran % (Auto) 0.4 (0-0.5) % Neut % (Auto) 75.4 H (45.5-73.1) % Lymph % (Auto) 15.4 L (18.3-44.2) % [place] % (Auto) 8.0 (2.6-8.5) % Eos % (Auto) 0.5 (0-4.4) % Baso % (Auto) 0.3 (0.2-1.2) % Lymph # (Auto) 1.51 (0.9-3.2) K/mm3 [place] # (Auto) 0.8 H (0.1-0.6) K/mm3 Eos # (Auto) 0.1 (0-0.3) K/mm3 Baso # (Auto) 0.0 (0.0-0.1) K/mm3 Abs Immat Gran (auto) 0.04 H (0.00-0.031) K/mm3 Absolute Neuts (auto) 7.4 H (1.3-6.7) K/mm3 Absolute Nucleated RBC 0.000 (0.0-0.012) K/mm3 Nucleated RBC % 0.0 (0.0-0.2) % Sodium 141 (137-145) mmol/L Potassium 4.1 (3.4-5.0) mmol/L Chloride 108 H (98-107) mmol/L Carbon Dioxide 26 (22-30) mmol/L Anion Gap 7 (4-12) mmol/L BUN 7 (7-17) mg/dL Creatinine 0.60 L (0.7-1.0) mg/dL Estim Creat Clear Calc 113 ml/min Estimated GFR > 60 (59 - ) Glucose 90 (65-110) mg/dL Calcium 9.5 (8.4-10.2) mg/dL Total Bilirubin 0.7 (0.2-1.3) mg/dL AST 20 (14-36) U/L ALT 10 (6-35) U/L Alkaline Phosphatase 81 (38-126) U/L Total Protein 8.0 (6.3-8.2) g/dL Albumin 4.3 (3.5-5.1) g/dL Serum HCG, Qual Negative Urine Color Yellow (Yellow) Urine Appearance Clear (Clear) Urine pH 6.0 (5.0-9.0) Ur Specific [place] 1.007 (1.001-1.035) Urine Protein Negative (Negative) mg/dL Urine Glucose (UA) Negative (Negative) mg/dL Urine Ketones Negative (Negative) mg/dL Ur Blood (Man) Non-hemolyzed trace H (Negative) Urine Nitrate Negative (Negative) Urine Bilirubin Negative (Negative) Urine Urobilinogen 0.2 (<2.0) mg/dL Leukocyte Esterase Rfl Negative (Negative) MARILY/UL Urine RBC 0-2 (0-2) /hpf Urine WBC 0-5 (0-3) /hpf Ur Squamous Epith Cells None seen (Few) /hpf Urine Bacteria None seen /hpf Urine Casts 0-2 POC Urine HCG, Qual Negative (Negative) Discharge Plan Discharge Clinical Impression: Abscess Patient Disposition: Home, Self-Care Condition: Improved Instructions: Antibiotic Form, Abscess (ED) Additional Instructions: Please follow-up with your family doctor within the next 3-5 days. Return to the emergency department if any new or worsening symptoms develop. Take the prescribed antibiotic as instructed. Patient Language: Japanese Prescriptions: No Action Lo Loestrin Fe 1 mg-10 mcg (24)/10 mcg (2) tablet 1 tablet PO DAILY Qty: 84 3RF thyroid (pork) [[place] Thyroid] 30 mg tablet 30 mg PO DAILY Follow-up/Referrals: Michael Montejo MD [Primary Care Provider] - 1 Week Time of Disposition: 07:01
[2024-05-10] MEDS: ONDANSETRON INJ 4 MG/2 ML VIAL IV PUSH (04:56)
[2024-05-10] MEDS: SODIUM CHLORIDE 0.9% IV 1,000 ML 999 ML IV CONT (04:57)
[2024-05-10] MEDS: MORPHINE SULFATE (*CRX) 4 MG/ML INJ IV PUSH ×2 (04:58→07:02)
[2024-05-10 05:06] LABS: BEDSIDEPREGUCG Negative (Negative)
[2024-05-10 05:18] LABS: Basophils Percent Auto 0.3 % (0.2-1.2); Eosinophils Absolute Auto 0.1 K/mm3 (0-0.3); Eosinophils Percent Auto 0.5 % (0-4.4); Hematocrit 40.2 % (37.0-47.0); Hemoglobin 14.3 g/dL (12.0-15.0); Immature Granulocyte Absolute 0.04 K/mm3 (0.00-0.031); Immature Granulocyte Percent A 0.4 % (0-0.5); Lymphocytes Absolute Auto 1.51 K/mm3 (0.9-3.2); Lymphocytes Percent Auto 15.4 % (18.3-44.2); Mean Corpuscular HGB Conc 35.6 g/dl (32-36); Mean Corpuscular Hemoglobin 32.4 pg (26-34); Mean Corpuscular Volume 91.2 fl (80-100); Mean Platelet Volume 9.8 fl (7.4-10.4); Monocytes Absolute Auto 0.8 K/mm3 (0.1-0.6); Neutrophils Absolute Auto 7.4 K/mm3 (1.3-6.7); Neutrophils Percent Auto 75.4 % (45.5-73.1); Platelet Count Result 243 k/mm3 (150-375); Red Blood Count 4.41 M/mm3 (4.2-5.4); Red Cell Distribution Width 11.6 % (11.5-14.5); White Blood Count 9.8 K/mm3 (4.5-10.0)
[2024-05-10 05:24] LABS: Add Urine Microscopic? NO; Appearance Urine Clear (Clear); Bacteria Urine None Seen /hpf; Bilirubin Urine Negative (Negative); Blood Urine Non-Hemolyzed Trace (Negative); Color Urine Yellow (Yellow); Glucose Urine UA Negative (Negative); Ketones Urine Negative (Negative); Leukocyte Esterase Ur Negative LEU/UL (Negative); Nitrate Urine Negative (Negative); Non Pathogenic Casts 0-2; Protein Urine Negative (Negative); RBC Urine 0-2 /hpf (0-2); Specific Grav Ur 1.007 (1.001-1.035); Squamous Epithelial Cell Urine None Seen /hpf (Few); Urobilinogen Urine 0.2 mg/dL (<2.0); WBC Urine 0-5 /hpf (0-3)
[2024-05-10 05:27] LABS: SPREG INTERNAL CONTROL Positive; Serum Qual hCG Negative
[2024-05-10 05:29] LABS: Alanine Aminotransferase 10 U/L (6-35); Albumin Level 4.3 g/dL (3.5-5.1); Alkaline Phosphatase 81 U/L (38-126); Anion Gap 7 mmol/L (4-12); Aspartate Amino Transferase 20 U/L (14-36); Bilirubin,Total 0.7 mg/dL (0.2-1.3); Blood Urea Nitrogen 7 mg/dL (7-17); Calcium 9.5 mg/dL (8.4-10.2); Carbon Dioxide 26 mmol/L (22-30); Chloride 108 mmol/L (98-107); Estimated CRCL calculation 113 ml/min; Estimated Glomerular Filt Rate > 60; Glucose 90 mg/dL (65-110); Potassium 4.1 mmol/L (3.4-5.0); Sodium 141 mmol/L (137-145)
[2024-05-10 07:45] VITALS: BP 110/72; PULSE 110; RESP 20; O2SAT 100
== END 2024-05-10 07:45 | disposition home or self-care (01) ==
PROVIDERS: Emergency Provider Emergency Medicine; PCP Family Medicine
DX: L02.212 Cutaneous abscess of back [any part, except buttock and flank] (principal); E06.3 Autoimmune thyroiditis; M79.7 Fibromyalgia; Z87.891 Personal history of nicotine dependence
CPT/HCPCS: 10060; 36415; 74177; 80053; 81003; 81025; 84703; 85025; 96361; 96374; 96375; 96376; 99284; J2270; J2405; J7030; Q9967

== ENCOUNTER 2024-06-12 10:01 | Emergency (ER) | payer BC, MEDICARE, SELFPAY ==
[2024-06-12] VITALS (19 sets, daily range): BP systolic 90–119; BP diastolic 61–80; PULSE 77–96; RESP 14–24; TEMP 36.8–36.9; O2SAT 95–99
--- NOTE | ~2024-06-12 | XR_ITS ---
EXAMINATION: XR chest 1V portable DATE: 06/12/2024 10:43 INDICATION: Tachycardia. TECHNIQUE: A single frontal view of the chest was obtained. COMPARISON: Chest view 06/13/2023 FINDINGS: There is no pneumonia, pleural effusion, or pneumothorax. The heart size is normal. IMPRESSION: 1. No acute cardiopulmonary disease. Reviewed, dictated and finalized at location A. ICAL M[employer]ER
--- NOTE | 2024-06-12 10:08 | ECG_ITS ---
Test Date: 2024-06-12 10:15:56 Measurements Intervals [place] Rate: 83 P: 51 SD: 102 QRS: 68 QRSD: 84 T: 71 QT: 354 QTc: 417 Interpretive Statements SINUS RHYTHM WITH SHORT SD INTERVAL No previous ECG available for comparison Electronically Signed On 06-12-2024 15:07:29 [employer]PA MANAGER by Sherry Galeana M.D.
--- NOTE | 2024-06-12 10:25 | ED_ITS ---
HPI - Arrhythmia/Palpitations General Chief Complaint: Arrhythmia/Palpitations Stated Complaint: palpitations Time Seen by Provider: 06/12/24 10:23 Source: patient Mode of arrival: ambulatory Limitations: no limitations History of Present Illness HPI narrative: Patient is a 28-year-old female with a significant past medical history that presents today for tachycardia/ arrhythmia. Lastly she went on a hiking trip and while she was hiking she said her heart rate go up to 193. Patient has a history of SVT and had ablation done back in August 2022. She says since the ablation she has not had any SVTs she has had a few episodes tachycardia for example she said a few months ago she was mopping and her heart rate went up to 180. She knows her heart rate went up to 183 last night because she has an [employer] watch on but her porch does not do the EKG so was no EKG done. She denied any chest pain at that time. Currently she denies any chest pain or palpitations or tachycardia. Related Data Home Medications ?Medication ?Instructions ?Recorded ?Confirmed ?Last Taken ?Type thyroid (pork) 30 mg tablet 30 mg PO DAILY 04/20/24 06/12/24 Unknown History ([place]ier Thyroid) Allergies Allergy/AdvReac Type Severity Reaction Status Date / Time Sulfa (Sulfonamide Allergy Mild RASH Verified 06/12/24 10:09 Antibiotics) diltiazem Allergy Rash Verified 06/12/24 10:09 metoprolol Allergy Rash Verified 06/12/24 10:09 fluoxetine (From Prozac) AdvReac Intermediate Unknown Verified 06/12/24 10:09 omeprazole AdvReac Unknown Verified 06/12/24 10:09 zypam AdvReac Palpitation Uncoded 06/12/24 10:09 s Review of Systems 2 Review of Systems: All systems reviewed & are unremarkable except as noted in HPI and below Constitutional: Constitutional: Reports as per HPI Eyes: Eyes: Reports no additional eye complaints ENT: Reports system reviewed and no additional complaints, except as documented Cardiovascular: Cardiovascular: Reports as per HPI and Reports rapid heart rate Respiratory: Respiratory: Reports as per HPI Gastrointestinal: Gastrointestinal: Reports no additional gastrointestinal complaints Genitourinary: Genitourinary: Reports no additional female genitourinary complaints Musculoskeletal: Musculoskeletal: Reports no additional musculoskeletal complaints Integumentary/Breasts: Skin/Breast: Reports system reviewed and no additional complaints, except as docu Neurologic: Reports system reviewed and no additional complaints, except as documented Psychiatric: Psychiatric: Reports no additional psychiatric complaints Endocrine: Endocrine: Reports no additional endocrine complaints Hematologic/Lymphatic: Hematologic/Lymphatic: Reports no additional hematologic/lymphatic complaints Allergic/Immunologic: Allergic/Immunologic: Reports no additional allergic/immunologic complaints PMFSH Past Medical History Medical History Thyroid disorder Sacral fracture Mass of buttock Keith's disease SVT (supraventricular tachycardia) Fibromyalgia PSVT (paroxysmal supraventricular tachycardia) Tachyarrhythmia Allergic Neck pain Depression MARION positive Lordosis of cervicothoracic region Tobacco abuse Surgical History Surgical History S/P ablation of ventricular arrhythmia S/P ablation operation for arrhythmia [place] teeth extracted Family History Family History Father Tongue cancer COVID-19 Mother Cardiac abnormality Grandparent COPD (chronic obstructive pulmonary disease) Sibling COVID-19 Social History Social History Years smoked: 10 Smoking status: Former smoker Tobacco type: cigarettes Second hand tobacco smoke exposure: No Alcohol intake: never Substance use: current Substance use type: marijuana Do You Feel Safe in your Home?: Yes Lack of Transportation: No Lack of Food: Never True Current Housing: I Have Housing Concerned About Future Housing: No Difficulty Paying Gas/Electric Bills: No Difficulty Paying for Meds: No Currently Unemployed: No Education: High School Diploma/GED Difficulty w/ Childcare or Family Care: No Living arrangements: with family Additional living arrangements comments: fianc? Occupation/Education: unemployed Gender identity (if verbalized by the patient): Female Sexual Orientation (if Verbalized by the Patient): Straight or Heterosexual Spiritual care concerns: No Exam 2 Const: General: healthy appearing Nutritional Appearance: well nourished Orientation/consciousness: patient oriented x3 HENMT: Head: normal to inspection Ears: external ears normal F ulises/Nose/Sinus: Normal external nose present Face and sinus: normal facial exam Mouth: Yes Normal oral and palatal mucosa present Eyes: Conjunctivae: conjunctivae normal Pupils: Equal, round and reactive pupils present EOM: EOMs intact bilaterally Neck: Neck: normal visual inspection Chest: Chest palpation & inspection: normal inspection of the chest Resp: Effort & Inspection: normal respiratory effort Auscultation: clear to auscultation bilaterally Cardio: Rate: regular rate Rhythm: regular rhythm GI: GI Palp: Yes Soft to palpation Back/Spine/Pelvis: Back: no CVA tenderness Skin: General skin exam: normal color Rashes: no rashes Wounds: no wounds Neuro: General: patient oriented x3, moves all extremities and no meningeal signs Cranial nerves: Yes Nystagmus not present Speech: normal speech Extrem: General: normal to inspection Psych: Mental Status: mental status grossly normal Affect: normal affect Course Vital Signs Vital signs: Vital Signs Temperature 98.2 F 06/12/24 10:01 Pulse Rate 86 06/12/24 10:01 Respiratory Rate 14 06/12/24 10:01 Blood Pressure 119/80 06/12/24 10:01 Pulse Oximetry 99 06/12/24 10:01 Oxygen Delivery Room Air 06/12/24 10:01 Temperature 98.2 F 06/12/24 10:01 Pulse Rate 86 06/12/24 10:01 Respiratory Rate 14 06/12/24 10:01 Blood Pressure 119/80 06/12/24 10:01 Pulse Oximetry 99 06/12/24 10:01 Oxygen Delivery Room Air 06/12/24 10:01 MDM - Arrhythmia/Palpitations MDM Narrative Medical decision making narrative: Patient does have history of having SVT but does have the ablation and 2022. She has not had any known SVT since the ablation. As stated in the HPI she did have a few incidents here in their every once while having some tachycardia but it just feels like tachycardia and a fast heart rate without SVT. She does have history of anxiety after she started getting the SVT admitted to get anxious when she starts feeling heart rate increased. Full to a full cardiac workup however and do an EKG and check her troponins BNP and CBC CMP. Also get chest x-ray as well. Differential Diagnosis Differential diagnosis: Likely palpitations, anxiety, sinus tachycardia and other (SVT) Medical Records Attestation: I reviewed the patient's medical records. Lab Data Attestation: I reviewed the patient's lab results. 06/12/24 10:32 01/14/25 10:32 Labs: Lab Results 06/12/24 Range/Units 10:32 WBC 4.6 L (4.8-10.8) K/mm3 RBC 4.51 (4.20-5.40) M/mm3 Hgb 14.0 (12.0-15.0) g/dL Hct 40.9 (35.0-49.0) % MCV 90.7 (78.0-102.0) fL MCH 31.0 (27.0-31.0) pg MCHC 34.2 (32-36) g/dL RDW 11.6 (11.6-14.4) % Plt Count 202 (150-420) K/mm3 MPV 9.6 (9.2-11.8) fl Immature Gran % (Auto) 0.2 H (0.0-0.0) % Neut % (Auto) 64.7 (50.0-70.0) % Lymph % (Auto) 21.7 (18.0-42.0) % [place] % (Auto) 11.6 H (2.0-11.0) % Eos % (Auto) 1.1 (1.0-6.0) % Baso % (Auto) 0.7 (0.0-1.0) % Lymph # (Auto) 0.99 L (1.10-4.50) K/mm3 [place] # (Auto) 0.53 (0.10-0.90) K/mm3 Eos # (Auto) 0.05 (0.02-0.50) K/mm3 Baso # (Auto) 0.03 (0.00-0.10) K/mm3 Abs Immat Gran (auto) 0.01 H (0.00-0.00) K/mm3 Absolute Neuts (auto) 2.95 (1.70-7.20) K/mm3 Absolute Nucleated RBC 0.00 (0.00-0.00) K/mm3 Nucleated RBC % 0.0 (0-0.0) % Sodium 142 (136-145) mmol/L Potassium 3.7 (3.5-5.1) mmol/L Chloride 104 (98-108) mmol/L Carbon Dioxide 28 (21-32) mmol/L Anion Gap 10 (4-12) mmol/L BUN 7 (7-18) mg/dL Creatinine 0.69 (0.55-1.02) mg/dL Estim Creat Clear Calc Not Reportable Estimated GFR > 60 (59 - ) Glucose 67 L (70-99) mg/dL Calculated Osmolality 290 (285-295) mOsm/kg Calcium 9.2 (8.5-10.1) mg/dL Total Bilirubin 0.8 (0.00-1.00) mg/dL AST 13 L (15-37) U/L ALT 19 (14-59) U/L Alkaline Phosphatase 104 (46-116) U/L Troponin I 13.4 (0.00-60.4) ng/L NT-Pro-B Natriuret Pep 78 (0-125) pg/mL Total Protein 7.2 (6.4-8.2) g/dL Albumin 4.1 (3.4-5.0) g/dL Discharge Plan Discharge Clinical Impression: Tachycardia, Anxiety Patient Disposition: Home, Self-Care Condition: Stable Instructions: Tachycardia (ED) Additional Instructions: Follow up with cardiology. Patient Language: Macedonian Prescriptions: No Action thyroid (pork) [Prem[place] Thyroid] 30 mg tablet 30 mg PO DAILY Follow-up/Referrals: Michael Montejo MD [Primary Care Provider] - Time of Disposition: 11:43
[2024-06-12 10:38] LABS: Basophils Absolute Auto 0.03 K/mm3 (0.00-0.10); Basophils Percent Auto 0.7 % (0.0-1.0); Eosinophils Absolute Auto 0.05 K/mm3 (0.02-0.50); Eosinophils Percent Auto 1.1 % (1.0-6.0); Hematocrit 40.9 % (35.0-49.0); Immature Granulocyte Absolute 0.01 K/mm3 (0.00-0.00); Immature Granulocyte Percent A 0.2 % (0.0-0.0); Lymphocytes Absolute Auto 0.99 K/mm3 (1.10-4.50); Lymphocytes Percent Auto 21.7 % (18.0-42.0); Mean Corpuscular HGB Conc 34.2 g/dL (32-36); Mean Corpuscular Volume 90.7 fL (78.0-102.0); Mean Platelet Volume 9.6 fl (9.2-11.8); Monocytes Absolute Auto 0.53 K/mm3 (0.10-0.90); Monocytes Percent Auto 11.6 % (2.0-11.0); Neutrophils Absolute Auto 2.95 K/mm3 (1.70-7.20); Neutrophils Percent Auto 64.7 % (50.0-70.0); Platelet Count Result 202 K/mm3 (150-420); Red Blood Count 4.51 M/mm3 (4.20-5.40); Red Cell Distribution Width 11.6 % (11.6-14.4); White Blood Count 4.6 K/mm3 (4.8-10.8)
--- NOTE | 2024-06-12 10:41 | PC.NURSE ---
Patient ambulatory to the bathroom with steady gait. ERP denies need for UA.
[2024-06-12 11:04] LABS: Alanine Aminotransferase 19 U/L (14-59); Albumin Level 4.1 g/dL (3.4-5.0); Alkaline Phosphatase 104 U/L (46-116); Anion Gap 10 mmol/L (4-12); Aspartate Amino Transferase 13 U/L (15-37); Bilirubin,Total 0.8 mg/dL (0.00-1.00); Blood Urea Nitrogen 7 mg/dL (7-18); Calcium 9.2 mg/dL (8.5-10.1); Carbon Dioxide 28 mmol/L (21-32); Chloride 104 mmol/L (98-108); Estimated Glomerular Filt Rate > 60; Glucose 67 mg/dL (70-99); NT Pro B Type Natriuretic Pept 78 pg/mL (0-125); Osmolality Calculated 290 mOsm/kg (285-295); Potassium 3.7 mmol/L (3.5-5.1); Sodium 142 mmol/L (136-145); Total Protein 7.2 g/dL (6.4-8.2); Troponin I 13.4 ng/L (0.00-60.4)
== END 2024-06-12 11:55 | disposition home or self-care (01) ==
PROVIDERS: Emergency Provider Family Medicine; PCP Family Medicine
DX: R00.0 Tachycardia, unspecified (principal); F41.9 Anxiety disorder, unspecified; Z87.891 Personal history of nicotine dependence
CPT/HCPCS: 36415; 71045; 80053; 83880; 84484; 85025; 93005; 99284

== ENCOUNTER 2025-01-10 10:56 | Emergency (ER) | payer BC, MEDICARE, MEDICAID, SELFPAY ==
[2025-01-10] VITALS (20 sets, daily range): BP systolic 110–132; BP diastolic 60–95; PULSE 75–112; RESP 15–28; TEMP 36.8–36.9; O2SAT 95–100
--- NOTE | ~2025-01-10 | XR_ITS ---
EXAMINATION: XR chest 1V portable DATE: 01/10/2025 11:41 INDICATION: Midsternal chest pain. TECHNIQUE: A single frontal image of the chest was obtained. COMPARISON: Chest radiograph dated 06/12/2024 FINDINGS: No pneumothorax. No pleural effusion. No focal pulmonary consolidation. The cardiomediastinal silhoue tte is normal. IMPRESSION: 1. No acute pulmonary process identified. Reviewed, dictated and finalized at location A.
--- NOTE | 2025-01-10 11:06 | ECG_ITS ---
Test Date: 2025-01-10 10:58:20 Measurements Intervals [place] Rate: 89 P: 29 MD: 101 QRS: 28 QRSD: 88 T: 9 QT: 335 QTc: 409 Interpretive Statements SINUS RHYTHM WITH SHORT MD INTERVAL CONSIDER INFERIOR INFARCT, AGE INDETERMINATE BASELINE ARTIFACT- I ABNORMAL ECG Compared to ECG 06/12/2024 10:15:56 No significant changes Electronically Signed On 01-10-2025 12:32:03 CDT by Tee Cortez D.O.
--- OUTSIDE RECORDS SUMMARY | 2025-01-10 11:13 | XMS_ITS | Encounter Summary ---
Author Organization [facility] Address [address] [place] [address] Phone Care Team Providers Care Direct Sales Consultant Name Role Phone Michael Montejo MD Primary Care Provider [phone] Encounter Details Date Type Department Care Team (Late st Contact Info) Description 09/24/2022 Telephone [facility] Cardiology [address] [place] [address] [place] [address] Anaid Merrill Social History Tobacco Use Types Packs/Day Years Used Date Smoking Tobacco: Former Cigarettes 0.3 9.7 2 013 - 02/27/2022 Smokeless Tobacco: Never Comments:5 cigarettes per da y Alcohol Use Standard Drinks/Week Comments No 0 (1 standard drink = 0.6 oz pur e alcohol) AUDIT-C Answer Date Recorded Q1: How often do you have a drink containing alc ohol? Monthly or less 09/22/2022 Q2: How many drinks containi ng alcohol do you have on a typical day when you are drinking? 1 or 2 09/22/2022 Q3: How often do you have si x or more drinks on one occasion? Never 09/22/2022 Personal Safety Answer Date Recorded Have you ever been in or are you currently in a harmful physical or emotional relationship or is someone making you feel afraid or unsafe? 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
--- OUTSIDE RECORDS SUMMARY | 2025-01-10 11:13 | XMS_ITS ---
Author Name EZ JIANG Address [address] [place] [address] Phone [facility] Address [address] [place] [address] Phone Care Team Providers Care Belt And Link Assembly Supervisor Name Role Phone VALENTE JIANG EZ Unavailable [phone] ALLERGIES, ADVERSE REACTIONS AND ALERTS Allergy Name Allergy Date Allergy Status Allergy Severity Allergy Reaction Prozac, [RxNorm: 90033] 02/17/2022 Current MEDICATIONS RxNorm Brand Name Prescription Ordered Value Order Unit Start Date Date Status Fill Status Indications 769755 amoxicilli n-pot clavulanat e 875-125 mg tablet SIG: amoxicillin-p ot clavulanate 875-125 mg oral tablet, 7 days, Dispense #14 Tablet, 0 Refills, Directions: Take 1 oral tablet 2 times a day. Take with food. Take until gone. 14 tablet 2021 Current 059299 naproxen 500 mg tablet SIG: naproxen 500 mg oral tablet, 14 days, Dispense #28 Tablet, 0 Refills, Directions: Take 1 oral tablet 2 times a day as needed for pain. 28 tablet 2021 Current PROBLEMS Problem Code Problem Description Problem Status Problem Da te Problem End Date [id number] erythematosus Lupus erythematosus Current 02/17/2022 [id number]-[id number] third molar tooth Impacted third molar tooth Current 02/17/2022 H66.92-OTITIS MEDIA, UNSPECIFIED, LEFT EAR OTITIS MEDIA, UNSPECIFIED, LEFT EAR Chronic 02/17/2022 H92.02-OTALGIA, LEFT EAR OTALGIA, LEFT EAR Chronic 02/17/2022 Z71.9-COUNSELING, UNSPECIFIED COUNSELING, UNSPECIFIED Chronic 02/17/2022 Z71.89-OTHER SPECIFIED COUNSELING OTHER SPECIFIED COUNSELING Chronic 02/17/2022 PROCEDURES Procedure Description Date Notes NO PROCEDURES PERFORMED ASSESSMENTS Assessment None PLAN OF TREATMENT Assessment Planned Activity LOINC Planned Pradip e None CONSULTATION NOTE Note Author Date None HISTORY AND PHYSICAL NOTE Note Author Date None PROGRESS NOTE Note Author Date None DISCHARGE SUMMARY Note Author Date None CHIEF COMPLAINT AND REASON FOR VISIT FUNCTIONAL STATUS Functional or Cognitive Find ing None MENTAL STATUS Cognitive Finding None ENCOUNTERS Encounter Type Provider Diagnoses Start Date Location Disc harged to None SOCIAL HISTORY Social Status Observation Current Every Day Smoker Sex: Female CARE TEAM INFORMATION Belt And Link Assembly Supervisor Provider ID Role Location Phone EZKEVIN JIANG [id number] [address] [place] [address] INSURANCE PROVIDERS Payer Name Policy type / Coverage type Covered alliance party ID Policy Jaquez [facility] [id number] CHILD
--- OUTSIDE RECORDS SUMMARY | 2025-01-10 11:13 | XMS_ITS | Clinical Summary ---
Author Organization [facility] [employer] Address [address] [place] [address] Phone Care Team Providers Care Meter Tester Name Role Phone Michael Montejo MD Primary Care Provider [phone] Allergies Active Allergy Reactions Criticality Noted Date Comments Diltiazem Rash Medium 09/20/2022 [place] like throat closing Fluoxetine Other (See comments) Low 07/02/2019 Hypotension Metoprolol Rash Medium 09/20/2022 [place] like throat closing Omeprazole Muscle pain,Rash Medium 08/20/2022 Sulfadimethoxine Rash High 10/26/2018 Sulfamethizole Rash Medium 06/02/2022 Medications Lo Loestrin Fe 1 mg-10 mcg (24)/10 mcg (2) tabletIndications :Surveillance of previously prescribed contraceptive pill TAKE 1 TABLET DAILY 28 tablet 1 0 Active Additional Information Patient not taking.Informant: Self, Reported on 11/25/2024 fluconazole (DIFLUCAN) 150 mg tabletIndications :Dysuria Take one tab now. Repeat in 7 days if symptoms persist. 2 tablet 4 Active Additional Information Patient not taking.Reported on 11/25/2024 [place] Thyroid 30 mg tablet TAKE 1 TABLET BY MOUTH DAILY 1 HOUR BEFORE BREAKFAST 5 Active Active Problems Problem Noted Date Diagnosed Date Dysmenorrhea 09/22/2022 Assessment & Plan (09/22/2022 7:35 PM CDT): - continue home norethindrone-estradiol tablet Anxiety 09/22/2022 Assessment & Plan (09/22/2022 7:35 PM CDT): - home prn ativan Palpitations 08/17/2022 SVT (supraventricular tachycardia) 08/02/2022 Overview (08/02/2022): Added automatically from request for surgery [id number] Assessment & Plan (09/23/2022 8:48 AM CDT): Successful ablation 09/21/22 for symptomatic SVT which previous failed medical therapies (allergic to BBs and CCBs) - Per EP, monitor on tele, strict bedrest 4 hours post-procedure then activity ad federico > walks without issue - Start aspirin 81mg tonight for 30 days - EP evaled in AM with recs pasted into AVS and ok to discharge - f/u Cards 10/20/22 scheduled. Comments Yes Encounters Date Type Department Care Team Description 11/25/2024 9:13 AM CDT - 11/25/2024 11:59 PM CD[place] [address] UTI symptoms Discharge Disposition: Discharge to home or self care 11/25/2024 8:45 AM CDT Office Visit [facility] [place] [address] [place] [address] Bonita Parra NP UTI symptoms (Primary Dx); Dysuria; Acute vaginitis 11/25/2024 Results Follow-Up [facility] [place] [address] [place] [address] Bonita Parra NP Vaginitis panel Vaginal, Urine culture Urine, clean voided from Last 3 Months Surgical History Surgery Date Site/Laterality Comments NO PAST SURGERIES COLONOSCOPY ESOPHAGOGASTRODUODENOSCOPY WISDOM TOOTH EXTRACTION OTHER SURGICAL HISTORY 09/23/2022 Cardiac Ablation at [facility] Medical History Date Comments Dysmenorrhea treated with oral contraceptive 201 2 Depression SVT (supraventricular tachycardia) Chronic fatigue syndrome Fibromyalgia Family History Medical History Relation Name Comments ALS Maternal Grandfather Kidney cancer Maternal Grandfather Breast cancer Maternal Great-Grandmother 1 Lung cancer Maternal Great-Grandmother 2 Cardiomyopathy Mother Mitral valve prolapse Mother Hypertension Paternal Grandfather Diabetes Paternal Great-Grandmother Anesthesia problems Neg Hx Malig Hyperthermia Neg Hx Pseudochol deficiency Neg Hx Relation Name Status Comments Maternal Grandfather Maternal Great-Grandmother 1 Maternal Great-Grandmother 2 Mother Paternal Grandfather Paternal Great-Grandmother Social History Tobacco Use Types Packs/Day Years Used Date Smoking Tobacco: Former Cigarettes 0.3 9.7 2 013 - 02/27/2022 Smokeless Tobacco: Never Tobacco Cessation:Counseling Given: Not Answered Comments:5 cigarettes per day Alcohol Use Standard Drinks/Week Comments No 0 [...] feel afraid or unsafe? 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 Gender Identity Not on file Sexual Orientation Not on file Occupation Industry Job Start Date Job End Date unemployed Not on file Not on file Not on file Obstetrics History Para Term AB IAB SAB Ectopic Multiple Livin g Live Births 1 0 0 0 0 0 0 0 0 0 0 Date Outcome GA Total Labor Labor/2nd/3rd Weight Sex Type Anes PTL Sanam A1 A5 Name Clin Current Last Filed Vital Signs Vital Sign Reading Time Taken Comments Blood Pressure 100/60 11/25/2024 9:10 AM CDT Pulse 101 11/25/2024 9:10 AM CDT Temperature 36.7 C (98.1 F) 11/25/2024 9:10 AM CDT Respiratory Rate 20 11/25/2024 9:10 AM CDT Oxygen Saturation 99% 11/25/2024 9:10 AM CDT Inhaled Oxygen Concentration - - Weight 73 kg (161 lb) 11/25/2024 9:10 AM CDT Height 167.6 cm (5' 6) 11/25/2024 9:10 AM CDT Body Mass Index 25.99 11/25/2024 9:10 AM CDT Plan of Treatment Health Maintenance Due Date Last Done Comments Cervical Cancer Screening 1997 Depression Screening 1997 Hepatitis C Screening 1997 Regular Well Visit/Exam 18-64 10/27/2019 10/26/2018, 07/19/2017 DTaP/Tdap/Td Vaccine (7 - Td or Tdap) 12/28/2021 12/29/2011, 09/11/2002, 03/02/1999, Additional history exists HPV Vaccines (1 - 3-dose SCDM series) 2024 Influenza Vaccine (#1) 2025 6, 03/28/2015, 04/12/2012, Additional history exists Hepatitis B Screening Completed 06/17/1998 , 1997, 1997 Varicella Vaccines Completed 12/29/2011, 09/15/1998 Pneumococcal vaccine <65 Aged Out No longer eligible based on patient's age to complete this topic Medical Devices Implanted Type Area Director Learning And Development Device Identifier Shelf Expiration Date Model / Serial / Lot [employer] Vascade Mvp 6-12fr Venous Closure [id number] - [id number] - [id number] Implanted:Qty : 1 on 09/22/2022 by Jeanine Dwyer MD at [facility] Vascular Closure Device Left: Femoral Vein [employer] 06/29/2024 [id number] [id number] / [id number] 09B / [id number] [employer] Device Closure Vascade Od5 Fr Femoral Artery [id number] - [id number] - [id number] Implanted:Qty : 1 on 09/22/2022 by Jeanine Dwyer MD at [facility] Vascular Closure Device Left: Femoral Vein [employer] 12/04/2023 [id number] -[id number] / [id number] / [id number] [employer] Vascade Mvp 6-12fr Venous Closure [id number] - [id number] - [id number] Implanted:Qty : 1 on 09/22/2022 by Jeanine Dwyer MD at [facility] Vascular Closure Device Left: Femoral Vein [employer] 03/09/2024 [id number]- [id number] / [id number] 19C / [id number] 19C [employer] Vascade Mvp 6-12fr Venous Closure [id number] - [id number] - [id number] Implanted:Qty : 1 on 09/22/2022 by Jeanine Dwyer MD at [facility] Vascular Closure Device Right: Femoral Vein [employer] 06/29/2024 [id number] [id number] / [id number] 09B / [id number] 09B Procedures Procedure Name Priority Date/Time Associated Diagnosis Comments POCT URINALYSIS DIPSTICK Routine 11/25/2024 9:18 AM CDT UTI symptoms VAGINITIS PANEL Routine 11/25/2024 9:17 AM CDT UTI symptoms URINE CULTURE Routine 11/25/2024 9:16 AM CDT UTI symptoms from Last 3 Months Results * (ABNORMAL) POCT urinalysis dipstick (11/25/2024 9:18 AM CDT) Color, Urine, POC Yellow Clarity, ur, POC Clear Clear Glucose, ur, POC Negative Negative Bilirubin, ur, POC Negative Negative Ketones, ur, POC Negative Negative Specific [place], POC 1.015 1.003 - 1.030 Blood, ur, POC Trace(A) Negative pH, ur, POC 7.5 5.0 - 8.0 Protein, ur, POC Negative Negative Urobilinogen, urine, POC 0.2 0.2 - 1.0 mg/dL Nitrite, ur, POC Negative Negative Leukocytes, ur, POC Negative Negative Lot Number [id number] Urine 11/25/2024 9:18 AM CDT Bonita Parra NP POINT OF CARE TEST ORDERAB LES Final Result * Vaginitis panel Vaginal (11/25/2024 9:17 AM CDT) Bacterial Vaginosis Not Detected Not Detected Comment:A negative result do es not preclude a possible infection. Results should be considered in conjunction with clinical presentation to determine the disease status. Elisabet group Not Detected Not Detected [facility] Elisabet glabrata/ krusei Not Detected Not Detected [facility] Trichomonas DNA Not Detected Not Detected [facility] Vaginal 11/25/2024 9:17 AM CDT 11/25/2024 2:29 PM CDT Narrative [facility] - 11/25/2024 3:40 PM CDT The Glarity Xpert Xpress MVP test detects DNA targets from anaerobic bacteria associated with bacterial vaginosis, Elisabet species associated with vulvovaginal candidiasis, and Trichomonas vaginalis by nucleic acid amplification testing (NAAT). Results should be interpreted in conjunction with other clinical data. This test cannot be used to assess therapeutic success or failure because target nucleic acids may persist following antimicrobial therapy. This test has been cleared by the [place] Food and Drug Administration to aid in the diagnosis of vaginal infections in symptomatic women ages 14 and older. The performance characteristics of this test have been verified by the [facility]. Bonita Parra NP LAB MICROBIOLOGY - GENERAL ORDERABLES Final Result [facility] [id number] [address] Department [place] [address] * Urine culture Urine, clean voided (11/25/2024 9:16 AM CDT) Report Final Report: Less than 100,000 colonies/mL (clinically insignificant growth based on current clinical standards) Comment:Testing performed by : [facility], [address], [place]., [address] Organism (CLINICALLY INSIGNIFICANT GROWTH [facility] Urine, clean voided 11/25/2024 9:16 AM CDT 11/25/2024 4:09 PM CDT Narrative [facility] - 11/26/2024 5:30 PM CDT Testing performed by [facility] Microbiology Laboratory ([phone]) us Bonita Parra NP LAB MICROBIOLOGY - GENERAL ORDERABLES Final Result [facility] [id number] Department [place] [address] from Last 3 Months Insurance [facility]RI [facility] MEDICARE [facility] MEDICARE ANTHEM ACCESS Advance Directives For more information, please contact: [phone] * Full Code (Latest Code Status on File) Date Activated Date Inactivated Comments 09/22/2022 4:22 PM 09/23/2022 2:08 PM Care Teams Meter Tester Relationship Specialty Start Date End Date Michael Montejo MD PCP - General Family Medicine 05/05/22
--- OUTSIDE RECORDS SUMMARY | 2025-01-10 11:13 | XMS_ITS | Clinical Summary ---
Author Organization [facility] Address [address] [place] [address] Care Team Providers Care Interior Specialist Name Role Phone Unavailable Primary Care Provider Unavailabl e Encounters Date Type Department Care Team Description 01/02/2025 External Device Data [facility] ABSTRACTION Provider, Abstract 01/01/2025 External Device Data [facility] ABSTRACTION Provider, Abstract 12/12/2024 External Device Data [facility] ABSTRACTION Provider, Abstract 12/11/2024 External Device Data [facility] ABSTRACTION Provider, Abstract 11/27/2024 External Device Data [facility] ABSTRACTION Provider, Abstract from Last 3 Months Social History Tobacco Use Types Packs/Day Years Used Date Smoking Tobacco: Never Assessed Comments Unknown Sex and Gender Information Value Date Recorded Sex Assigned at Not on file Legal Sex Female 4:42 PM CDT Gender Identity Not on file Sexual Orientation Not on file Plan of Treatment Health Maintenance Due Date Last Done Comments HPV VACCINES (1 - 3-dose series) 2012 CERVICAL CANCER SCREENING 2018 HPV/Cotest (21-29) 2018 PAP SMEAR 2018 DTAP/TDAP/TD VACCINES (2 - T d or Tdap) 12/28/2021 12/29/2011, 09/11/2002, 03/02/1999, Additional history exists INFLUENZA VACCINE (#1) 2024 , 03/28/2015, 04/12/2012, Additional history exists HEPATITIS B VACCINES Completed 06/17/1998, 1997, 1997 [facility]
[2025-01-10 11:23] LABS: Hematocrit 36.7 % (35.0-49.0); Hemoglobin 13.0 g/dL (12.0-15.0); Immature Granulocyte Percent A 0.6 % (0.0-0.0); Lymphocytes Absolute Auto 0.94 K/mm3 (1.10-4.50); Mean Corpuscular HGB Conc 35.4 g/dL (32-36); Mean Corpuscular Hemoglobin 32.3 pg (27.0-31.0); Mean Corpuscular Volume 91.1 fL (78.0-102.0); Nucleated Red Blood Cells Absolute Auto 0.00 K/mm3 (0.00-0.00); Nucleated Red Blood Cells Perc 0.0 % (0-0.0); Platelet Count Result 167 K/mm3 (150-420); Red Blood Count 4.03 M/mm3 (4.20-5.40); White Blood Count 6.2 K/mm3 (4.8-10.8)
[2025-01-10 11:35] LABS: Alanine Aminotransferase 23 U/L (6-35); Albumin Level 3.9 g/dL (3.5-5.1); Alkaline Phosphatase 64 U/L (38-126); Anion Gap 4 mmol/L (4-12); Aspartate Amino Transferase 27 U/L (14-36); Bilirubin,Total 0.8 mg/dL (0.2-1.3); Blood Urea Nitrogen 5 mg/dL (7-17); Calcium 9.3 mg/dL (8.4-10.2); Carbon Dioxide 24 mmol/L (22-30); Chloride 108 mmol/L (98-107); Estimated CRCL calculation 134 ml/min; Estimated Glomerular Filt Rate > 60; Glucose 100 mg/dL (65-110); Lipase 61 U/L (23-300); Osmolality Calculated 279 mOsm/kg (285-295); Potassium 4.0 mmol/L (3.4-5.0); Sodium 136 mmol/L (137-145); Total Protein 6.6 g/dL (6.3-8.2)
[2025-01-10 11:37] LABS: INR 0.9; Partial Thromboplastin Time 26.1 Sec (23.9-30.70); Prothrombin Time 10.3 Seconds (9.50-12.1)
[2025-01-10 11:47] LABS: Troponin I < 0.012 ng/mL (0.000-0.034)
[2025-01-10 11:48] LABS: Add Urine Microscopic? YES; Appearance Urine Cloudy (Clear); Glucose Urine UA Negative (Negative); Leukocyte Esterase Ur Negative LEU/UL (Negative); Nitrate Urine Negative (Negative); Specific Grav Ur 1.015 (1.010-1.020)
--- OUTSIDE RECORDS SUMMARY | 2025-01-10 12:01 | XMS_ITS | Clinical Summary ---
Author Organization [facility] Address [address] [place] [address] Care Team Providers Care Medical Technologist Prn Name Role Phone Unavailable Primary Care Provider [...] 1997 Insurance [facility]
--- OUTSIDE RECORDS SUMMARY | 2025-01-10 12:01 | XMS_ITS | Encounter Summary ---
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
--- OUTSIDE RECORDS SUMMARY | 2025-01-10 12:02 | XMS_ITS ---
Author Name EZ JIANG Address [address] [place] [address] Phone [facility] Address [address] [place] [address] Phone Care Team Providers Care Flat Examiner Name Role Phone VALENTE JIANG EZ Unavailable [phone] ALLERGIES, ADVERSE REACTIONS AND ALERTS Allergy Name Allergy Date Allergy Status Allergy Severity Allergy Reaction Prozac, [RxNorm: 49221] 02/17/2022 Current MEDICATIONS RxNorm Brand Name Prescription Ordered Value Order Unit Start Date Date Status Fill Status Indications 956131 amoxicilli n-pot clavulanat e 875-125 mg tablet SIG: amoxicillin-p ot clavulanate 875-125 mg oral tablet, 7 days, Dispense #14 Tablet, 0 Refills, Directions: Take 1 oral tablet 2 times a day. Take with food. Take until gone. 14 tablet 2021 Current [id number] naproxen 500 mg tablet SIG: naproxen 500 mg oral tablet, 14 days, Dispense #28 Tablet, 0 Refills, Directions: Take 1 oral tablet 2 times a day as needed for pain. 28 tablet 2021 Current PROBLEMS Problem Code Problem Description Problem Status Problem Da te Problem End Date [id number] erythematosus Lupus erythematosus Current 02/17/2022 096457168-Oqvkvjzz third molar tooth Impacted third molar tooth [...] Day Smoker Sex: Female CARE TEAM INFORMATION Flat Examiner Provider ID Role Location Phone EZKEVIN JIANG [id number] [address] [place] [address] INSURANCE PROVIDERS Payer Name Policy type / Coverage type Covered constitution party ID Policy Jaquez [facility] [id number] CHILD
--- OUTSIDE RECORDS SUMMARY | 2025-01-10 12:02 | XMS_ITS | Clinical Summary ---
Author Organization CC [facility] [address] [employer] Address [address] [place] [address] Phone Care Team Providers Care Director Patient Name Role Phone Michael Montejo MD Primary Care Provider [phone] Allergies Active Allergy Reactions Criticality Noted Date Comments Diltiazem Rash Medium 09/20/2022 [place] like throat closing Fluoxetine Other (See comments) Low 07/02/2019 Hypotension Metoprolol Rash Medium 09/20/2022 [place] like throat closing Omeprazole Muscle pain,Rash Medium [...] Additional Information Patient not taking.Reported on 11/25/2024 Henriette Thyroid 30 mg tablet TAKE 1 TABLET [...] (08/02/2022): Added automatically from request for surgery [id number] Assessment & Plan (09/23/2022 8:48 AM CDT): [...] - 11/25/2024 11:59 [place] [address] UTI symptoms Discharge Disposition: Discharge to home or self care 11/25/2024 8:45 AM CDT Office Visit [facility] [place] [address] [place] [address] Bonita Parra NP UTI symptoms (Primary Dx); Dysuria; Acute vaginitis 11/25/2024 Results Follow-Up [facility] [place] [address] [place] [address] Bonita Parra NP Vaginitis panel Vaginal, Urine culture Urine, clean voided from Last 3 Months Surgical History Surgery Date Site/Laterality Comments NO PAST SURGERIES COLONOSCOPY ESOPHAGOGASTRODUODENOSCOPY WISDOM TOOTH EXTRACTION OTHER SURGICAL HISTORY 09/23/2022 Cardiac Ablation at [place] Medical History Medical History Date Comments Dysmenorrhea [...] on file 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 Gender Identity Not on file Sexual Orientation [...] this topic Medical Devices Implanted Type Area Porcelain Enamel Installer Device Identifier Shelf Expiration Date Model / Serial / Lot [employer] Vascade Mvp 6-12fr Venous Closure [id number] - [id number] - [id number] Implanted:Qty : 1 on 09/22/2022 by Jeanine Dwyer MD at [facility] Vascular Closure Device Left: Femoral Vein [employer] 06/29/2024 800-612C- [id number] / [id number] / [id number] [employer] Device Closure Vascade Od5 Fr Femoral Artery [id number] - [id number] - [id number] Implanted:Qty : 1 on 09/22/2022 by Jeanine Dwyer MD at [facility] Vascular Closure Device Left: Femoral Vein [employer] 12/04/2023 [id number] / [id number] / [id number] [employer] Vascade Mvp 6-12fr Venous Closure [id number] - [id number] - [id number] Implanted:Qty : 1 on 09/22/2022 by Jeanine Dwyer MD at [facility] Vascular Closure Device Left: Femoral Vein [employer] 03/09/2024 800-612C- 10U / [id number] / [id number] [employer] Vascade Mvp 6-12fr Venous Closure [id number] - [id number] - [id number] Implanted:Qty : 1 on 09/22/2022 by Jeanine Dwyer MD at [facility] Vascular Closure Device Right: Femoral Vein [employer] 06/29/2024 800-612C- 10U / [id number] / [id number] Procedures Procedure Name Priority Date/Time Associated [...] Negative Ketones, ur, POC Negative Negative Specific [place], POC 1.015 1.003 - 1.030 Blood, ur, POC Trace(A) Negative pH, ur, POC 7.5 5.0 - 8.0 Protein, ur, POC Negative Negative Urobilinogen, urine, POC 0.2 0.2 - 1.0 mg/dL Nitrite, ur, POC Negative Negative Leukocytes, ur, POC Negative Negative Lot Number [id number] Urine 11/25/2024 9:18 AM CDT Bonita Parra NP POINT OF CARE TEST ORDERAB LES Final Result * Vaginitis panel Vaginal (11/25/2024 9:17 AM CDT) Bacterial Vaginosis Not Detected Not Detected Comment:A negative result do es not preclude a possible infection. Results should be considered in conjunction with clinical presentation to determine the disease status. Elisabet group Not Detected Not Detected [facility] Elisabet glabrata/ krusei Not Detected Not Detected [facility] Trichomonas DNA Not Detected Not Detected [facility] Vaginal 11/25/2024 9:17 AM CDT 11/25/2024 2:29 PM CDT Narrative [facility] - 11/25/2024 3:40 PM CDT The Allclasses Xpert Xpress MVP test detects DNA targets [...] this test have been verified by the [facility]. Bonita Parra NP LAB MICROBIOLOGY - GENERAL ORDERABLES Final Result [facility] [id number] [address] Department [place] [address] * Urine culture Urine, clean voided (11/25/2024 9:16 AM CDT) Report Final Report: Less than 100,000 colonies/mL (clinically insignificant growth based on current clinical standards) Comment:Testing performed by : [facility], [address], [place]., [address] Organism (CLINICALLY INSIGNIFICANT GROWTH [facility] Urine, clean voided 11/25/2024 9:16 AM CDT 11/25/2024 4:09 PM CDT Narrative [facility] - 11/26/2024 5:30 PM CDT Testing performed by [facility] ([phone]) us Bonita Parra NP LAB MICROBIOLOGY - GENERAL ORDERABLES Final Result [facility] [address] Department [place] [address] from Last 3 Months Insurance [facility] MEDICARE [facility] MEDICARE ANTHEM ACCESS Advance Directives For more information, please contact: [phone] * Full Code (Latest Code Status on File) Date Activated Date Inactivated Comments 09/22/2022 4:22 PM 09/23/2022 2:08 PM Care Teams Director Patient Relationship Specialty Start Date End Date Michael Montejo MD PCP - General Family Medicine 05/05/22
--- OUTSIDE RECORDS SUMMARY | 2025-01-10 12:02 | XMS_ITS | Patient Health Record ---
Author Organization [facility] Address [address] [place] [address] Care Team Providers Care Map Mounter Name Role Phone Mikey Shelton Unavailable [phone] Reason For Referral No Information Medications Medication SIG (Take, Route, Frequency, Duration) Notes Start Date End Date Status traZODone HCl 50 MG Oral 05/05/2022 Active dilTIAZem HCl 30 MG Oral 05/05/2022 Active clonazePAM 0.5 MG Oral 05/05/2022 A ctive Cyclobenzaprine HCl 10 MG Oral 05/05/2022 Active Meloxicam 7.5 MG Oral 05/05/2022 Ac tive predniSONE 10 MG Oral 05/05/2022 Ac tive Lo Loestrin Fe 1 mg-10 mcg(24) /10 mcg (2) Oral *Pick strength-form from [facility] for eRX* 05/05/2022 Active Escitalopram Oxalate 20 MG Oral 05/05/2022 Active Immunizations Vaccine Route Administration Date Status Comme nts DTaP Unknown 1997 Administered DTaP Unknown 01/06/1998 Administered DTaP Unknown 03/11/1998 Administered DTaP Unknown 03/02/1999 Administered DTaP Unknown 09/11/2002 Administered Hep B, unspecified formulation Unknown 1997 Admin istered Hep B, unspecified formulation Unknown 1997 Admin istered Hep B, unspecified formulation Unknown 06/17/1998 Admin istered Hib, unspecified formulation Unknown 1997 Adminis tered Hib, unspecified formulation Unknown 01/06/1998 Adminis tered Hib, unspecified formulation Unknown 03/11/1998 Adminis tered Hib, unspecified formulation Unknown 12/03/1998 Adminis tered Influenza virus vaccine, quadrivalent (IIV4), split virus, 0.25 mL dosage Unknown 04/12/2012 Administered Influenza virus vaccine, quadrivalent (IIV4), split virus, 0.25 mL dosage Unknown 03/28/2015 Administered Influenza virus vaccine, quadrivalent (IIV4), split virus, 0.25 mL dosage Unknown 03/23/2016 Administered Influenza, live, intranasal Unknown 05/12/2011 Administ ered IPV Unknown 1997 Administered IPV Unknown 01/06/1998 Administered IPV Unknown 03/02/1999 Administered IPV Unknown 09/11/2002 Administered Meningococcal MCV4O Unknown 12/29/2011 Administered MMR Unknown 12/03/1998 Administered MMR Unknown 09/11/2002 Administered Tdap Unknown 12/29/2011 Administered Varicella Unknown 09/15/1998 Administered Varicella Unknown 12/29/2011 Administered Plan Of Treatment No Information Insurance Providers Payer Name Payer Address Payer Phone Subscriber Number Group Number Insured Name Patient Relationship to Insured Coverage Start Date Coverage End Date [facility] [address] [place] [address] [id number] [employer] Self - patient is the insured
--- NOTE | 2025-01-10 12:33 | ED_ITS ---
HPI - Chest Pain General Chief Complaint: Chest Pain Stated Complaint: chest pain Time Seen by Provider: 01/10/25 10:58 Source: patient Mode of arrival: ambulatory Limitations: no limitations History of Present Illness HPI narrative: this is a 29-year-old female with no significant past medical history is 14 weeks presents with 1 day history of chest pain with no shortness of breath no cough or congestion no fever chills there is no nausea vomiting denies any dysuria or hematuria no flank pain and no abdominal pain. MD complaint: chest pain Onset (ago): day(s) Timing of current episode: episodic Prior episodes: No Onset: during rest Pain location: substernal Pain radiation: none Quality: aching Relieving factors: nothing Related Data Home Medications ?Medication ?Instructions ?Recorded ?Confirmed ?Last Taken ?Type thyroid (pork) 30 mg tablet 30 mg PO DAILY 04/20/24 12/04/24 Unknown History ([place] Thyroid) Allergies Allergy/AdvReac Type Severity Reaction Status Date / Time Sulfa (Sulfonamide Allergy Mild RASH Verified 01/10/25 11:00 Antibiotics) diltiazem Allergy Rash Verified 01/10/25 11:00 metoprolol Allergy Rash Verified 01/10/25 11:00 fluoxetine (From Prozac) AdvReac Intermediate Unknown Verified 01/10/25 11:00 omeprazole AdvReac Unknown Verified 01/10/25 11:00 zypam AdvReac Palpitation Uncoded 01/10/25 11:00 s Review of Systems 2 Review of Systems: All systems reviewed & are unremarkable except as noted in HPI and below PMFSH Past Medical History Medical History Interstitial cystitis Thyroid disorder Sacral fracture Mass of buttock Keith's disease SVT (supraventricular tachycardia) Fibromyalgia PSVT (paroxysmal supraventricular tachycardia) Tachyarrhythmia Allergic Neck pain Depression MARION positive Lordosis of cervicothoracic region Tobacco abuse Surgical History Surgical History S/P ablation of ventricular arrhythmia S/P ablation operation for arrhythmia [place] teeth extracted Family History Family History Father Tongue cancer COVID-19 Mother Cardiac abnormality Grandparent COPD (chronic obstructive pulmonary disease) Sibling COVID-19 Social History Social History Years smoked: 10 Smoking status: Former smoker Tobacco type: cigarettes Second hand tobacco smoke exposure: No Alcohol intake: never Substance use: former Substance use type: marijuana Do You Feel Safe in your Home?: Yes Lack of Transportation: No Lack of Food: Never True Current Housing: I Have Housing Concerned About Future Housing: No Difficulty Paying Gas/Electric Bills: No Difficulty Paying for Meds: No Currently Unemployed: No Education: High School Diploma/GED Difficulty w/ Childcare or Family Care: No Living arrangements: with family Additional living arrangements comments: fianc? Occupation/Education: unemployed Gender identity (if verbalized by the patient): Female Sexual Orientation (if Verbalized by the Patient): Straight or Heterosexual Spiritual care concerns: No Exam 2 Const: General: healthy appearing and no acute distress Nutritional Appearance: well nourished Orientation/consciousness: patient oriented x3 Limitations: no limitations HENMT: Head: normal to inspection Eyes: Conjunctivae: conjunctivae normal Pupils: Equal, round and reactive pupils present EOM: EOMs intact bilaterally Chest: Chest palpation & inspection: normal inspection of the chest Resp: Effort & Inspection: normal respiratory effort Auscultation: clear to auscultation bilaterally Cardio: Rate: regular rate Rhythm: regular rhythm GI: GI Palp: Yes Soft to palpation Auscultation: normal bowel sounds : General: Yes bladder normal to palpation Urinary Catheter: Urinary Catheter: patent and draining Back/Spine/Pelvis: Back: no CVA tenderness Skin: General skin exam: normal color Rashes: no rashes Wounds: no wounds Neuro: General: patient oriented x3 and moves all extremities Extrem: General: normal to inspection Psych: Mental Status: mental status grossly normal Course Course Emergency Course: Patient with chest pain EKG with normal sinus rhythm does have a history of ablation, there is no shortness of breath patient did have a positive D-dimer but since the patient is 14 weeks is concerned about safety with the baby and opted not to do a CTA of the chest to rule out pulmonary embolism explained the risks associated with not having the test performed the patient understands and decided to sign out against medical advice. Patient does have a positive urinalysis and will send antibiotics patient's local pharmacy had cleared that a person knee explained to the patient the risks and consequences involved in leaving facility at this time. The benefits of continued treatment and our hospitalization, alternatives if any, to be continued treatment and/or hospitalization if applicable. I have not identified any psychosis, drugs, mental illness, or any medical illness that alters decision-making capacity. Vital Signs Vital signs: Vital Signs Pulse Oximetry 100 01/10/25 10:56 Oxygen Delivery Room Air 01/10/25 10:56 Temperature 36.8 C 01/10/25 10:58 Pulse Rate 82 01/10/25 11:30 Respiratory Rate 17 01/10/25 11:30 Blood Pressure 117/60 01/10/25 11:30 Pulse Oximetry 97 01/10/25 11:30 Oxygen Delivery Room Air 01/10/25 11:30 MDM - Chest Pain Lab Data 01/10/25 11:19 01/10/25 11:19 Labs: Lab Results 01/10/25 01/10/25 Range/Units 11:19 11:44 WBC 6.2 (4.8-10.8) K/mm3 RBC 4.03 L (4.20-5.40) M/mm3 Hgb 13.0 (12.0-15.0) g/dL Hct 36.7 (35.0-49.0) % MCV 91.1 (78.0-102.0) fL MCH 32.3 H (27.0-31.0) pg MCHC 35.4 (32-36) g/dL RDW 11.9 (11.6-14.4) % Plt Count 167 (150-420) K/mm3 MPV 9.8 (9.2-11.8) fl Immature Gran % (Auto) 0.6 H (0.0-0.0) % Neut % (Auto) 74.3 H (50.0-70.0) % Lymph % (Auto) 15.2 L (18.0-42.0) % Hughes % (Auto) 9.0 (2.0-11.0) % Eos % (Auto) 0.6 L (1.0-6.0) % Baso % (Auto) 0.3 (0.0-1.0) % Lymph # (Auto) 0.94 L (1.10-4.50) K/mm3 Hughes # (Auto) 0.56 (0.10-0.90) K/mm3 Eos # (Auto) 0.04 (0.02-0.50) K/mm3 Baso # (Auto) 0.02 (0.00-0.10) K/mm3 Abs Immat Gran (auto) 0.04 H (0.00-0.00) K/mm3 Absolute Neuts (auto) 4.60 (1.70-7.20) K/mm3 Absolute Nucleated RBC 0.00 (0.00-0.00) K/mm3 Nucleated RBC % 0.0 (0-0.0) % PT 10.3 (9.50-12.1) Seconds INR 0.9 APTT 26.1 (23.9-30.70) Sec D-Dimer 0.56 H (0.19-0.50) mg/L Sodium 136 L (137-145) mmol/L Potassium 4.0 (3.4-5.0) mmol/L Chloride 108 H (98-107) mmol/L Carbon Dioxide 24 (22-30) mmol/L Anion Gap 4 (4-12) mmol/L BUN 5 L (7-17) mg/dL Creatinine 0.49 L (0.7-1.0) mg/dL Estim Creat Clear Calc 134 ml/min Estimated GFR > 60 (59 - ) Glucose 100 (65-110) mg/dL Calculated Osmolality 279 L (285-295) mOsm/kg Calcium 9.3 (8.4-10.2) mg/dL Total Bilirubin 0.8 (0.2-1.3) mg/dL AST 27 (14-36) U/L ALT 23 (6-35) U/L Alkaline Phosphatase 64 (38-126) U/L Troponin I < 0.012 (0.000-0.034) ng/mL Total Protein 6.6 (6.3-8.2) g/dL Albumin 3.9 (3.5-5.1) g/dL Lipase 61 (23-300) U/L Urine Color Light yellow (Yellow) Urine Appearance Cloudy A (Clear) Urine pH 6.5 (5.0-8.0) Ur Specific Duncan 1.015 (1.010-1.020) Urine Protein Negative (Negative) Urine Glucose (UA) Negative (Negative) Urine Ketones Negative (Negative) Ur Blood (Man) Negative (Negative) Urine Nitrate Negative (Negative) Urine Bilirubin Negative (Negative) Urine Urobilinogen 0.2 (0.2-1.0) mg/dL Leukocyte Esterase Rfl Negative (Negative) MARILY/UL Urine RBC 0-2 (0-2) /hpf Urine WBC 0-3 (0-3) /hpf Ur Squamous Epith Cells Few (Few) /hpf Amorphous Sediment Heavy H (None) Urine Bacteria 1+ H (None) /hpf Critical Care Time Critical Care Time Critical Care Time: No Discharge Plan Discharge Clinical Impression: D-dimer, elevated Chest pain Qualifiers: Chest pain type: unspecified Qualified Code(s): R07.9 - Chest pain, unspecified UTI (urinary tract infection) Qualifiers: Urinary tract infection type: site unspecified Hematuria presence: without hematuria Qualified Code(s): N39.0 - Urinary tract infection, site not specified Patient Disposition: Left Against Medical Advice Condition: Stable Instructions: Chest Pain (ED), Urinary Tract Infection in (ED) Additional Instructions: advised patient to follow with her medical radiation dosimetrist for further evaluation treatment within the next 1 to 2 days. Patient Language: Omani Prescriptions: New nitrofurantoin monohyd/m-cryst [Macrobid] 100 mg capsule 100 mg PO Q12H 7 Days Qty: 14 0RF Rx Instructions: must administer with a meal/food No Action thyroid (pork) [[place] Thyroid] 30 mg tablet 30 mg PO DAILY Follow-up/Referrals: Michael Montejo MD [Primary Care Provider] - Time of Disposition: 12:41
== END 2025-01-10 12:54 | disposition left against medical advice (07) ==
PROVIDERS: Emergency Provider Emergency Medicine; PCP Family Medicine
DX: O23.42 Unspecified infection of urinary tract in pregnancy, second trimester (principal); N39.0 Urinary tract infection, site not specified; O26.892 Other specified pregnancy related conditions, second trimester; R07.9 Chest pain, unspecified; R79.1 Abnormal coagulation profile; Z3A.14 14 weeks gestation of pregnancy; Z87.891 Personal history of nicotine dependence
CPT/HCPCS: 36415; 71045; 80053; 81001; 83690; 84484; 85025; 85380; 85610; 85730; 93005; 96360; 99284